=== PATIENT | male | born 1955 | race Caucasian/White ===

== ENCOUNTER 2016-11-03 21:36 | Emergency (ER) | payer OTHER ==
[2016-11-03] MEDS ORDERED: NEOSYNEPHRINE 0.5% NASAL SPRAY/DROPS NS ONE (21:54)
[2016-11-03] MEDS ORDERED: ARZOL Silver Nitrate Applicator TP ONE ×2 (21:54→22:05)
[2016-11-03] MEDS ORDERED: XYLOCAINE 4% TOPICAL SOLUTION 50 ML TOP ONE (21:54)
--- NOTE | 2016-11-03 21:58 | ERPHSYRPT ---
- History of Present Illness Time Seen by Provider: 11/03/16 21:50 Source: patient Physician History: CC: nosebleed Hx: 61 y/o patient of Dr Alfonso with off and on right sided nose bleeding since Thrus. Tries to use tissue to get it stopped. Not on blood thinners. No injury. No problems like this in the past. Now has stopped again. Severity: moderate ENT Location: nose Allergies/Adverse Reactions: No Known Drug Allergies Allergy (Verified 11/03/16 22:22) Home Medications: Amlodipine Besylate 5 mg [Norvasc 5 mg] 5 mg PO DAILY 02/10/16 [History] Aspirin 81 mg PO DAILY 02/10/16 [History] Nitroglycerin 0.4 mg Tablet [Nitrostat 0.4 MG Tablet] 0.4 mg SL UD [History] Hx Tetanus, Diphtheria Vaccination/Date Given: Yes (up to date) Hx Influenza Vaccination/Date Given: No Hx Pneumococcal Vaccination/Date Given: No - Review of Systems Constitutional: No Fever, No Chills Ears, Nose, & Throat: Nose Congestion, Epistaxis Respiratory: No Dyspnea Abdominal/Gastrointestinal: No Vomiting Skin: No Rash Hematologic/Lymphatic: No Blood Clots, No Easy Bleeding, No Gum Bleeding, No Easy Bruising All Other Systems: Reviewed and Negative - Past Medical History Pertinent Past Medical History: Yes Cardiac History: Coronary Artery Disease, Hypertension - Past Surgical History Past Surgical History: Yes Cardiac: Cardiac Catheterization Gastrointestinal: Appendectomy - Social History Smoking Status: Current every day smoker How long have you smoked: 45 Exposure to second hand smoke: Yes Drug Use: none Patient Lives Alone: No - Nursing Vital Signs Nursing Vital Signs: Initial Vital Signs Temperature 97.7 F 11/03/16 21:48 Pulse Rate 98 H 11/03/16 21:48 Respiratory Rate 20 11/03/16 21:48 Blood Pressure 128/74 11/03/16 21:48 O2 Sat by Pulse Oximetry 98 11/03/16 21:48 Pain Scale Pain Intensity 0 - Physical Exam General Appearance: alert Eye Exam: bilateral eye: PERRL, EOMI Throat Exam: normal, pharynx normal Neck Exam: supple Cardiovascular/Respiratory Exam: normal breath sounds, regular rate/rhythm Abdominal Exam: non-tender, soft Neurologic Exam: alert, oriented x 3, cooperative Skin Exam: warm, dry, No rash Comments: left nostril has dryness and some excoriation. Right has some old blood, dry, exposed veins in [place] plexus area without current active bleeding. Procedures - Additional Procedures Progress: 1ml 4% lidocaine and neosynephrine mix atomized in right nostril. Then the k[place]elbach plexus area was cauterized using silver nitrate. No further bleeding. Ordered Tests: Active Orders 24 hr Category Date Time Status CBC W DIFF Stat Lab 11/03/16 22:07 Completed PROTIME WITH INR Stat Lab 11/03/16 22:07 Completed PTT Stat Lab 11/03/16 22:07 Completed Medication Summary Discontinued Medications Generic Name Dose Route Start Last Admin Trade Name Yovani PRN Reason Stop Dose Admin Lidocaine HCl 10 ml 11/03/16 21:54 11/03/16 22:11 Xylocaine 4% Topical Solution 50 Ml TOP 11/03/16 21:55 10 ml STAT ONE Administration Lidocaine HCl Confirm 11/03/16 22:05 Xylocaine 4% Topical Solution 50 Ml Administered 11/03/16 22:06 Dose 10 ml .ROUTE .STK-MED ONE Phenylephrine HCl 15 ml 11/03/16 21:54 11/03/16 22:10 Neosynephrine 0.5% Nasal [place]/Drops NS 11/03/16 21:55 15 ml STAT ONE Administration Phenylephrine HCl Confirm 11/03/16 22:05 Neosynephrine 0.5% Nasal [place]/Drops Administered 11/03/16 22:06 Dose 15 ml .ROUTE .STK-MED ONE Silver Nitrate 1 pkt 11/03/16 21:54 11/03/16 22:11 Arzol Silver Nitrate Applicator TP 11/03/16 21:55 1 pkt STAT ONE Administration Silver Nitrate Confirm 11/03/16 22:05 Arzol Silver Nitrate Applicator Administered 11/03/16 22:06 Dose 1 pkt TP .STK-MED ONE Lab/Rad Data: Laboratory Result Diagrams 11/03/16 22:07 Laboratory Results 11/03/16 11/03/16 Range/Units 22:07 22:07 WBC 6.0 (4.0-10.5) K/mm3 RBC 3.71 L (4.1-5.6) M/mm3 Hgb 12.4 L (12.5-18.0) gm/dl Hct 37.2 L (42-50) % MCV 100.3 H (78-100) fl MCH 33.4 H (26-32) pg MCHC 33.3 (32-36) g/dl RDW 11.7 (11.5-14.0) % Plt Count 134 L (150-450) K/mm3 MPV 9.6 H (6-9.5) fl Gran % 51.0 (36.0-66.0) % Lymphocytes % 28.6 (24.0-44.0) % Monocytes % 17.9 H (0.0-12.0) % Eosinophils % 2.2 (0.00-5.0) % Basophils % 0.3 (0.0-0.4) % Basophils # 0.02 (0-0.4) INR 0.91 (0.8-3.0) APTT 31.2 (24.1-36.1) SECONDS - Progress Progress Note: 11/03/16 22:39 No further bleeding. Epistaxis instr given. Counseled pt/family regarding: diagnosis, need for follow-up - Departure Time of Disposition: 22:39 Departure Disposition: Home Clinical Impression: Anterior epistaxis Condition: Stable Critical Care Time: No Referrals: ADELIA ALFONSO [Primary Care Provider] - Instructions: Nosebleed Additional Instructions: Hold pressure for 20 minutes for any further bleeding. Return to ER if needed. Rx polysporin ointment to rub in nose at bedtime starting tomorrow. Follow up with Dr Alfosno. Prescriptions: Bacitracin/Polymyxin B Sulfate [Polysporin Ointment] 28.3 gm TP QHS #1 oint...g.
[2016-11-03] MEDS ORDERED: XYLOCAINE 4% TOPICAL SOLUTION 50 ML ONE (22:05)
[2016-11-03] MEDS ORDERED: NEOSYNEPHRINE 0.5% NASAL SPRAY/DROPS ONE (22:05)
[2016-11-03 22:10] LABS: BASOPHIL % 0.3 % (0.0-0.4); Eosinophil % 2.2 % (0.00-5.0); Lymphocytes % 28.6 % (24.0-44.0); Mean Cell Volume 100.3 fl (78-100); Mean Corpuscular Hemoglobin 33.4 pg (26-32); Mean Platelet Volume 9.6 fl (6-9.5); Monocytes % 17.9 % (0.0-12.0); Platelet Count 134 K/mm3 (150-450); Red Blood Count 3.71 M/mm3 (4.1-5.6); Red Cell Distribution Width 11.7 % (11.5-14.0)
[2016-11-03 22:26] LABS: INR 0.91 (0.8-3.0); PROTIME 10.1 SECONDS (8.83-12.87)
[2016-11-03 22:28] LABS: PTT 31.2 SECONDS (24.1-36.1)
[2016-11-03 22:32] VITALS: BP 120/69; PULSE 88; O2SAT 97
== END 2016-11-03 22:51 | disposition home or self-care (01) ==
LOC: ED 21:36
DX: R04.0 Epistaxis (principal)
CPT/HCPCS: 36415; 85025; 85610; 85730; 99284; A9270-GY

== ENCOUNTER 2018-04-25 20:05 | Emergency (ER) | payer OTHER ==
--- NOTE | 2018-04-25 20:51 | ERPHSYRPT ---
- History of Present Illness Source: patient Exam Limitations: no limitations Patient Subjective Stated Complaint: pt is alert and oriented. pt is ambulatory with a steady gait. pt comes in via police for medical clearance after blowing .235 on a brethalyzer and a blood stick of 351. pt heart rate is 90bpm Sinus rhythm. 97% on RA. 134/84 bp. 18 resp rate. pt is cooperative. Triage Nursing Assessment: see above Physician History: Pt is a 62 y/o male that presented to the ER with police escort. Pt has elevated blood alcohol level and requiring medical clearance for care home. Pt denies complains, and stated, he had just three beers today. He did have four beers yesterday. Pt denies liquor use. Timing/Duration: today Severity: mild Allergies/Adverse Reactions: codeine Allergy (Verified 04/25/18 20:24) Home Medications: Amlodipine Besylate 5 mg [Norvasc 5 mg] 5 mg PO DAILY 02/10/16 [History] Aspirin 81 mg PO DAILY 02/10/16 [History] Hx Tetanus, Diphtheria Vaccination/Date Given: Yes (up to date) Hx Influenza Vaccination/Date Given: No Hx Pneumococcal Vaccination/Date Given: No Immunizations Up to Date: Yes - Review of Systems Constitutional: No Fever, No Chills Eyes: No Symptoms Ears, Nose, & Throat: No Symptoms Respiratory: No Cough, No Dyspnea Cardiac: No Chest Pain, No Edema, No Syncope Abdominal/Gastrointestinal: No Abdominal Pain, No Nausea, No Vomiting, No Diarrhea Genitourinary Symptoms: No Dysuria Musculoskeletal: No Back Pain, No Neck Pain Skin: No Rash Neurological: No Dizziness, No Focal Weakness, No Sensory Changes Psychological: No Symptoms Endocrine: No Symptoms All Other Systems: Reviewed and Negative - Past Medical History Pertinent Past Medical History: Yes Neurological History: Stroke Cardiac History: Coronary Artery Disease, Hypertension Respiratory History: COPD - Past Surgical History Past Surgical History: Yes Cardiac: Cardiac Catheterization Gastrointestinal: Appendectomy - Social History Smoking Status: Current every day smoker How long have you smoked: 50 years Exposure to second hand smoke: Yes Drug Use: none Patient Lives Alone: No - Nursing Vital Signs Nursing Vital Signs: Initial Vital Signs Temperature 97.4 F 04/25/18 20:17 Pulse Rate 96 H 04/25/18 20:17 Respiratory Rate 18 04/25/18 20:17 Blood Pressure 134/84 04/25/18 20:17 O2 Sat by Pulse Oximetry 98 04/25/18 20:17 Pain Scale Pain Intensity 0 - Physical Exam General Appearance: no apparent distress, alert Eye Exam: PERRL/EOMI, eyes nml inspection Ears, Nose, Throat Exam: normal ENT inspection, TMs normal, pharynx normal, moist mucous membranes Neck Exam: normal inspection, non-tender, supple, full range of motion Respiratory Exam: normal breath sounds, lungs clear, No respiratory distress Cardiovascular Exam: regular rate/rhythm, normal heart sounds, normal peripheral pulses Gastrointestinal/Abdomen Exam: soft, normal bowel sounds, No tenderness, No mass Back Exam: normal inspection, normal range of motion, No CVA tenderness, No vertebral tenderness Extremity Exam: normal inspection, normal range of motion, pelvis stable Neurologic Exam: alert, oriented x 3, cooperative, normal mood/affect, sensation nml, No motor deficits Skin Exam: normal color, warm, dry, No rash Lymphatic Exam: No adenopathy SpO2: 98 - Course Nursing assessment & vital signs reviewed: Yes Ordered Tests: Active Orders 24 hr Category Date Time Status TROPONIN Q3H Lab 04/25/18 19:45 Completed TROPONIN Q3H Lab 04/25/18 23:45 Ordered UA W/RFX UR CULTURE Stat Lab 04/25/18 20:28 Completed Urine Triage Profile Stat Lab 04/25/18 21:25 Completed Lab/Rad Data: Laboratory Results 04/25/18 04/25/18 04/25/18 Range/Units 21:25 20:28 19:45 Troponin I < 0.012 (0.000-0.034) ng/mL Urine Color YELLOW (YELLOW) Urine Appearance CLEAR (CLEAR) Urine pH 6.0 (5-6) Ur Specific [place] 1.010 (1.005-1.025) Urine Protein NEGATIVE (Negative) Urine Ketones NEGATIVE (NEGATIVE) Urine Blood NEGATIVE (0-5) Bin/ul Urine Nitrite NEGATIVE (NEGATIVE) Urine Bilirubin NEGATIVE (NEGATIVE) Urine Urobilinogen NEGATIVE (0-1) mg/dL Ur Leukocyte Esterase NEGATIVE (NEGATIVE) Urine WBC (Auto) NONE (0-5) /HPF Urine RBC (Auto) NONE (0-2) /HPF U Hyaline Cast (Auto) 3-5 (0-2) /LPF U Epithel Cells (Auto) NONE (FEW) /HPF Urine Bacteria (Auto) NONE (NEGATIVE) /HPF Urine Mucus (Auto) SLIGHT (NEGATIVE) /HPF Urine Culture Reflexed NO (NO) Urine Glucose NEGATIVE (NEGATIVE) mg/dL Urine Opiates Level NEGATIVE (NEGATIVE) Ur Methadone NEGATIVE (NEGATIVE) Urine Barbiturates NEGATIVE (NEGATIVE) Ur Phencyclidine (PCP) NEGATIVE (NEGATIVE) Urine Amphetamine NEGATIVE (NEGATIVE) U Benzodiazepine Level NEGATIVE (NEGATIVE) Urine Cocaine NEGATIVE (NEGATIVE) Urine Marijuana (THC) NEGATIVE (NEGATIVE) - Progress Progress: unchanged Progress Note: 04/25/18 20:50 Pt with elevated blood alcohol level. Troponin and UDS were ordered. Troponins and UDS were negative. Pt is cleared medically for care home. 04/25/18 22:00 Will see patient in: other (Pt is cleared for care home) - Departure Time of Disposition: 22:01 Departure Disposition: [facility] Clinical Impression: Alcohol intoxication Condition: Stable Critical Care Time: No Referrals: DOCTOR,NO FAMILY [NON-STAFF PHY W/O PRIVILEGES] -
[2018-04-25 21:18] LABS: Appearance CLEAR (CLEAR); Bilirubin NEGATIVE (NEGATIVE); Blood NEGATIVE Ery/ul (0-5); Glucose NEGATIVE (NEGATIVE); Ketones NEGATIVE (NEGATIVE); Leukocyte Esterase NEGATIVE (NEGATIVE); Mucus SLIGHT /HPF (NEGATIVE); Nitrite NEGATIVE (NEGATIVE); Protein,Urine Dip NEGATIVE (Negative); Urobilinogen NEGATIVE mg/dL (0-1)
[2018-04-25 21:46] LABS: Amphetamine,Urine NEGATIVE (NEGATIVE); Barbiturate,Urine NEGATIVE (NEGATIVE); Benzodiazepine,Urine NEGATIVE (NEGATIVE); Cocaine,Urine NEGATIVE (NEGATIVE); Methadone,Urine NEGATIVE (NEGATIVE); Opiate,Urine NEGATIVE (NEGATIVE); PCP,Urine NEGATIVE (NEGATIVE); THC,Urine NEGATIVE (NEGATIVE)
[2018-04-25 22:10] VITALS: BP 104/85; PULSE 104; O2SAT 97
== END 2018-04-25 22:10 | disposition home or self-care (01) ==
LOC: ED 20:05
DX: F10.129 Alcohol abuse with intoxication, unspecified (principal); I25.10 Atherosclerotic heart disease of native coronary artery without angina pectoris; I10 Essential (primary) hypertension; J44.9 Chronic obstructive pulmonary disease, unspecified
CPT/HCPCS: 36415; 80307; 81001; 84484; 99283; G0480

== ENCOUNTER 2018-07-01 11:47 | Observation (INO) | payer OTHER ==
[2018-07-01] MEDS ORDERED: Zofran 4 MG/2 ML VIAL IV ONE (11:53)
[2018-07-01] MEDS ORDERED: MORPHINE SULFATE 2 MG INJ IV ONE (11:53)
[2018-07-01] MEDS ORDERED: Zofran 4 MG/2 ML VIAL ONE (11:58)
[2018-07-01] MEDS ORDERED: MORPHINE SULFATE 2 MG INJ ONE (11:59)
--- NOTE | 2018-07-01 12:00 | ERPHSYRPT ---
- History of Present Illness Time Seen by Provider: 07/01/18 11:57 Source: patient Physician History: mild to mod off and on anterior chest pain tight for one day, no injury, +NV, no fever, +headache, hx cva and left residual weakness Aspirin Treatment Today: 81 mg x 4 Allergies/Adverse Reactions: codeine Adverse Reaction (Verified 07/01/18 12:15) Home Medications: Amlodipine Besylate 5 mg [Norvasc 5 mg] 5 mg PO DAILY 02/10/16 [History] Aspirin 81 mg PO DAILY 02/10/16 [History] Naproxen 500 mg PO DAILY 07/01/18 [History] Hx Tetanus, Diphtheria Vaccination/Date Given: Yes (up to date) Hx Influenza Vaccination/Date Given: No Hx Pneumococcal Vaccination/Date Given: No - Review of Systems Constitutional: No Fever Eyes: No Vision Changes Ears, Nose, & Throat: No Mouth Pain Respiratory: No Dyspnea Cardiac: Chest Pain Abdominal/Gastrointestinal: Nausea, Vomiting Musculoskeletal: No Back Pain Skin: No Rash Neurological: Headache, No Dizziness - Past Medical History Pertinent Past Medical History: Yes Neurological History: Stroke Cardiac History: Coronary Artery Disease, Hypertension Respiratory History: COPD - Past Surgical History Past Surgical History: Yes Cardiac: Cardiac Catheterization Gastrointestinal: Appendectomy - Social History Smoking Status: Current every day smoker How long have you smoked: 50 years Exposure to second hand smoke: Yes Drug Use: none Patient Lives Alone: No - Nursing Vital Signs Nursing Vital Signs: Initial Vital Signs Temperature 98.6 F 07/01/18 12:05 Pulse Rate 107 H 07/01/18 12:05 Respiratory Rate 16 07/01/18 12:05 Blood Pressure 150/89 07/01/18 12:05 O2 Sat by Pulse Oximetry 100 07/01/18 12:05 Pain Scale Pain Intensity 4 - Physical Exam General Appearance: no apparent distress Eye Exam: PERRL/EOMI, eyes nml inspection Ears, Nose, Throat Exam: moist mucous membranes Neck Exam: normal inspection Respiratory Exam: normal breath sounds Cardiovascular Exam: regular rate/rhythm Gastrointestinal/Abdomen Exam: soft, No tenderness Back Exam: normal range of motion Extremity Exam: normal inspection Neurologic Exam: alert, oriented x 3, cooperative Skin Exam: normal color, warm, dry - Course Nursing assessment & vital signs reviewed: Yes EKG Interpreted by Me: Sinus Rhythm, Other (no stemi) - Radiology Exams Chest X-ray Interpretation: Discussed w/ radiologist, Negative - CT Exams Head CT Interpretation: Negative, Discussed w/radiologist Chest CT Interpretation: Negative, Discussed w/radiologist Abdomen/Pelvis CT Interpretation: Negative, Discussed w/radiologist Ordered Tests: Active Orders 24 hr Category Date Time Status [employer] Consultant STAT Care 07/01/18 11:53 Active EKG-ER Only STAT Care 07/01/18 11:53 Active IV Insertion STAT Care 07/01/18 11:53 Active ABDOMEN AND PELVIS W/0 CONTRAS [CT] Stat Exams 07/01/18 11:55 Completed CHEST 1 VIEW (PORTABLE) Stat Exams 07/01/18 11:53 Completed CHEST WITH CONTRAST [CT] Stat Exams 07/01/18 12:33 Completed HEAD WITHOUT CONTRAST [CT] Stat Exams 07/01/18 11:56 Completed Alcohol [ETHYL ALCOHOL] Stat Lab 07/01/18 11:45 Completed CBC W DIFF Stat Lab 07/01/18 11:45 Completed CK-Creatinine Phosphokinase Stat Lab 07/01/18 11:45 Completed CMP Stat Lab 07/01/18 11:45 Completed D-DIMER QUANTITATION Stat Lab 07/01/18 11:45 Completed LIPASE Stat Lab 07/01/18 11:45 Completed Lactic Acid Stat Lab 07/01/18 12:05 Completed Lactic Acid Stat Lab 07/01/18 14:12 Ordered PROTIME WITH INR Stat Lab 07/01/18 11:45 Completed SED RATE [Erythrocyte Sedimentation Rate] Stat Lab 07/01/18 11:45 Completed TROPONIN Q3H Lab 07/01/18 12:00 Completed TROPONIN Q3H Lab 07/01/18 15:00 Ordered TROPONIN Q3H Lab 07/01/18 18:00 Ordered TROPONIN Q3H Lab 07/01/18 21:00 Ordered TROPONIN Q3H Lab 07/02/18 00:00 Ordered Urine Triage Profile Stat Lab 07/01/18 13:30 Completed Transfer Order Routine Transfer 07/01/18 Ordered Medication Summary Discontinued Medications Generic Name Dose Route Start Last Admin Trade Name Freq PRN Reason Stop Dose Admin Sodium Chloride 1,000 mls @ 999 mls/hr 07/01/18 12:17 07/01/18 13:38 Sodium Chloride 0.9% 1000 Ml IV 07/01/18 13:17 Infused .Q1H1M STA Infusion Sodium Chloride Confirm 07/01/18 12:22 Sodium Chloride 0.9% 1000 Ml Administered 07/01/18 12:23 Dose 1,000 mls @ ud .ROUTE .STK-MED ONE Morphine Sulfate 2 mg 07/01/18 11:53 07/01/18 12:02 Morphine Sulfate 2 Mg Inj IV 07/01/18 11:54 2 mg STAT ONE Administration Morphine Sulfate Confirm 07/01/18 11:59 Morphine Sulfate 2 Mg Inj Administered 07/01/18 12:00 Dose 2 mg .ROUTE .STK-MED ONE Ondansetron HCl 4 mg 07/01/18 11:53 07/01/18 12:02 Zofran 4 Mg/2 Ml Vial IV 07/01/18 11:54 4 mg STAT ONE Administration Ondansetron HCl Confirm 07/01/18 11:58 Zofran 4 Mg/2 Ml Vial Administered 07/01/18 11:59 Dose 4 mg .ROUTE .STK-MED ONE Lab/Rad Data: Laboratory Result Diagrams 07/01/18 11:45 07/01/18 11:45 Laboratory Results 07/01/18 07/01/18 07/01/18 Range/Units 13:30 12:05 12:00 WBC (4.0-10.5) K/mm3 RBC (4.1-5.6) M/mm3 Hgb (12.5-18.0) gm/dl Hct (42-50) % MCV (78-100) fl MCH (26-32) pg MCHC (32-36) g/dl RDW (11.5-14.0) % Plt Count (150-450) K/mm3 MPV (6-9.5) fl Gran % (36.0-66.0) % Eos # (Auto) (0-0.5) Absolute Lymphs (auto) (1.0-4.6) Absolute Monos (auto) (0.0-1.3) Lymphocytes % (24.0-44.0) % Monocytes % (0.0-12.0) % Eosinophils % (0.00-5.0) % Basophils % (0.0-0.4) % Absolute Granulocytes (1.4-6.9) Basophils # (0-0.4) ESR (0-15) mm/hr PT (8.83-12.87) SECONDS INR (0.8-3.0) D-Dimer (215-500) ng/mL Sodium (137-145) mmol/L Potassium (3.5-5.1) mmol/L Chloride (98-107) mmol/L Carbon Dioxide (22-30) mmol/L Anion Gap (5-15) MEQ/L BUN (9-20) mg/dL Creatinine (0.66-1.25) mg/dL Estimated GFR ML/MIN Glucose (74-106) mg/dL Lactic Acid 3.0 H (0.4-2.0) Calcium (8.4-10.2) mg/dL Total Bilirubin (0.2-1.3) mg/dL AST (17-59) U/L ALT (0-50) U/L Alkaline Phosphatase (38-126) U/L Creatine Kinase (55-170) U/L Troponin I < 0.012 (0.000-0.034) ng/mL Serum Total Protein (6.3-8.2) g/dL Albumin (3.5-5.0) g/dL Lipase (23-300) U/L Urine Opiates Level POSITIVE (NEGATIVE) Ur Methadone NEGATIVE (NEGATIVE) Urine Barbiturates NEGATIVE (NEGATIVE) Ur Phencyclidine (PCP) NEGATIVE (NEGATIVE) Urine Amphetamine NEGATIVE (NEGATIVE) U Benzodiazepine Level NEGATIVE (NEGATIVE) Urine Cocaine NEGATIVE (NEGATIVE) Urine Marijuana (THC) NEGATIVE (NEGATIVE) Ethyl Alcohol (0-10) mg/dL 07/01/18 07/01/18 07/01/18 Range/Units 11:45 11:45 11:45 WBC (4.0-10.5) K/mm3 RBC (4.1-5.6) M/mm3 Hgb (12.5-18.0) gm/dl Hct (42-50) % MCV (78-100) fl MCH (26-32) pg MCHC (32-36) g/dl RDW (11.5-14.0) % Plt Count (150-450) K/mm3 MPV (6-9.5) fl Gran % (36.0-66.0) % Eos # (Auto) (0-0.5) Absolute Lymphs (auto) (1.0-4.6) Absolute Monos (auto) (0.0-1.3) Lymphocytes % (24.0-44.0) % Monocytes % (0.0-12.0) % Eosinophils % (0.00-5.0) % Basophils % (0.0-0.4) % Absolute Granulocytes (1.4-6.9) Basophils # (0-0.4) ESR 3 (0-15) mm/hr PT (8.83-12.87) SECONDS INR (0.8-3.0) D-Dimer (215-500) ng/mL Sodium (137-145) mmol/L Potassium (3.5-5.1) mmol/L Chloride (98-107) mmol/L Carbon Dioxide (22-30) mmol/L Anion Gap (5-15) MEQ/L BUN (9-20) mg/dL Creatinine (0.66-1.25) mg/dL Estimated GFR ML/MIN Glucose (74-106) mg/dL Lactic Acid (0.4-2.0) Calcium (8.4-10.2) mg/dL Total Bilirubin (0.2-1.3) mg/dL AST (17-59) U/L ALT (0-50) U/L Alkaline Phosphatase (38-126) U/L Creatine Kinase (55-170) U/L Troponin I (0.000-0.034) ng/mL Serum Total Protein (6.3-8.2) g/dL Albumin (3.5-5.0) g/dL Lipase 47 (23-300) U/L Urine Opiates Level (NEGATIVE) Ur Methadone (NEGATIVE) Urine Barbiturates (NEGATIVE) Ur Phencyclidine (PCP) (NEGATIVE) Urine Amphetamine (NEGATIVE) U Benzodiazepine Level (NEGATIVE) Urine Cocaine (NEGATIVE) Urine Marijuana (THC) (NEGATIVE) Ethyl Alcohol < 10 (0-10) mg/dL 07/01/18 07/01/18 07/01/18 Range/Units 11:45 11:45 11:45 WBC 8.9 (4.0-10.5) K/mm3 RBC 4.90 (4.1-5.6) M/mm3 Hgb 16.5 (12.5-18.0) gm/dl Hct 48.1 (42-50) % MCV 98.2 (78-100) fl MCH 33.7 H (26-32) pg MCHC 34.3 (32-36) g/dl RDW 13.3 (11.5-14.0) % Plt Count 222 (150-450) K/mm3 MPV 8.3 (6-9.5) fl Gran % 83.0 H (36.0-66.0) % Eos # (Auto) 0.01 (0-0.5) Absolute Lymphs (auto) 0.70 L (1.0-4.6) Absolute Monos (auto) 0.75 (0.0-1.3) Lymphocytes % 7.9 L (24.0-44.0) % Monocytes % 8.4 (0.0-12.0) % Eosinophils % 0.1 (0.00-5.0) % Basophils % 0.6 (0.0-0.4) % Absolute Granulocytes 7.38 H (1.4-6.9) Basophils # 0.05 (0-0.4) ESR (0-15) mm/hr PT 10.8 (8.83-12.87) SECONDS INR 0.93 (0.8-3.0) D-Dimer 624 H* (215-500) ng/mL Sodium 138 (137-145) mmol/L Potassium 4.5 (3.5-5.1) mmol/L Chloride 100 (98-107) mmol/L Carbon Dioxide 25 (22-30) mmol/L Anion Gap 17.2 H (5-15) MEQ/L BUN 7 L (9-20) mg/dL Creatinine 0.68 (0.66-1.25) mg/dL Estimated GFR > 60.0 ML/MIN Glucose 101 (74-106) mg/dL Lactic Acid (0.4-2.0) Calcium 9.9 (8.4-10.2) mg/dL Total Bilirubin 1.10 (0.2-1.3) mg/dL AST 62 H (17-59) U/L ALT 26 (0-50) U/L Alkaline Phosphatase 114 (38-126) U/L Creatine Kinase 165 (55-170) U/L Troponin I (0.000-0.034) ng/mL Serum Total Protein 8.8 H (6.3-8.2) g/dL Albumin 4.7 (3.5-5.0) g/dL Lipase (23-300) U/L Urine Opiates Level (NEGATIVE) Ur Methadone (NEGATIVE) Urine Barbiturates (NEGATIVE) Ur Phencyclidine (PCP) (NEGATIVE) Urine Amphetamine (NEGATIVE) U Benzodiazepine Level (NEGATIVE) Urine Cocaine (NEGATIVE) Urine Marijuana (THC) (NEGATIVE) Ethyl Alcohol (0-10) mg/dL - Progress Progress: improved Air Movement: good Progress Note: 07/01/18 14:42 admit d/w Dr Alfonso Discussed with : Kaden Will see patient in: hospital (observation) Counseled pt/family regarding: lab results, diagnosis, rad results - Departure Departure Disposition: Observation Clinical Impression: Chest pain Qualifiers: Chest pain type: precordial pain Qualified Code(s): R07.2 - Precordial pain Condition: Stable Critical Care Time: No Referrals: ADELIA ALFONSO [Primary Care Provider] -
[2018-07-01] MEDS ORDERED: Sodium Chloride 0.9% 1000 ML 1,000 ML IV STA (12:17)
[2018-07-01 12:22] LABS: INR 0.93 (0.8-3.0); PROTIME 10.8 SECONDS (8.83-12.87)
[2018-07-01] MEDS ORDERED: Sodium Chloride 0.9% 1000 ML 1,000 ML ONE (12:22)
[2018-07-01 12:23] LABS: BASOPHIL % 0.6 % (0.0-0.4); Basophil (Absolute #) 0.05 (0-0.4); Eosinophil % 0.1 % (0.00-5.0); Eosinophil (Absolute #) 0.01 (0-0.5); Granulocyte Absolute (ANC) 7.38 (1.4-6.9); Hematocrit 48.1 % (42-50); Hemoglobin 16.5 gm/dl (12.5-18.0); Lymphocytes % 7.9 % (24.0-44.0); Mean Cell Volume 98.2 fl (78-100); Mean Corpuscular Hemoglobin 33.7 pg (26-32); Mean Corpuscular Hgb Concent. 34.3 g/dl (32-36); Mean Platelet Volume 8.3 fl (6-9.5); Monocyte (Absolute #) 0.75 (0.0-1.3); Monocytes % 8.4 % (0.0-12.0); Platelet Count 222 K/mm3 (150-450); Red Cell Distribution Width 13.3 % (11.5-14.0); White Blood Count 8.9 K/mm3 (4.0-10.5)
--- NOTE | 2018-07-01 12:25 | XRAY ---
Indication: Chest pain. Comparison: February 17, 2016. Portable chest remains hyperinflated and clear. Heart is not enlarged. Bony thorax intact with old right 9/10 rib fractures. No new/acute findings.
[2018-07-01 12:29] LABS: ALBUMIN 4.7 g/dL (3.5-5.0); ALKALINE PHOSPHATASE 114 U/L (38-126); ANION GAP 17.2 MEQ/L (5-15); BLOOD UREA NITROGEN 7 mg/dL (9-20); CHLORIDE 100 mmol/L (98-107); CK-Creatinine Phosphokinase 165 U/L (55-170); Calcium 9.9 mg/dL (8.4-10.2); Carbon Dioxide 25 mmol/L (22-30); Creatinine 1 0.68 mg/dL (0.66-1.25); Glucose 101 mg/dL (74-106); Potassium 4.5 mmol/L (3.5-5.1); SGOT/AST 62 U/L (17-59); SGPT/ALT 26 U/L (0-50); SODIUM 138 mmol/L (137-145); Total Protein 8.8 g/dL (6.3-8.2)
--- NOTE | 2018-07-01 13:00 | XRAY ---
Indication: Headache, nausea, and vomiting. Multiple contiguous axial images obtained through the head without contrast. Comparison: None Age-appropriate global atrophy. No acute intracranial hemorrhage, abnormal extra-axial fluid collection, or mass effect. Fourth ventricle is midline without hydrocephalus. Shook-white matter differentiation preserved. Bony calvarium intact. Partially visualized opacification of the left maxillary sinus. Mastoid air cells are clear. Impression: 1. No acute intracranial abnormalities. 2. Partially visualized left maxillary sinus disease. CT DI 70.21
--- NOTE | 2018-07-01 13:02 | XRAY ---
Indication: Nausea and vomiting. Multiple contiguous axial images obtained through the abdomen and pelvis without contrast as ordered. Comparison: None Lung bases demonstrate minimal bibasilar dependent atelectasis. No infiltrate or effusion. Heart is not enlarged. Noncontrasted stomach and bowel loops appear nonobstructed. Patient reports appendectomy. No free fluid/air. Calcified splenic granulomas. Remaining liver, gallbladder, pancreas, spleen, adrenal glands, kidneys, ureters, and bladder appear unremarkable for noncontrast exam. Moderate aortoiliac calcifications without AAA. 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 No ventral or inguinal hernias. Impression: Calcified splenic granulomas and right rib fractures. Remaining CT abdomen/pelvis without contrast exam is negative. CT DI 10.18
--- NOTE | 2018-07-01 13:44 | XRAY ---
Indication: Chest pain. Elevated d-dimer. Multiple contiguous axial images obtained through the chest using 80 cc Isovue 370 contrast and PE protocol. Comparison: None There is good opacification of the pulmonary arteries to include the lobar and segmental branches. No filling defect or pulmonary embolus. Heart is not enlarged. Anatomic variant for right-sided aortic arch without aneurysm/dissection. Left perihilar calcified nodes. No pathologic mediastinal/hilar lymphadenopathy. Small hiatal hernia. Examination of the lung parenchyma demonstrates minimal bilateral dependent atelectasis and minimal pulmonary emphysema in both upper lobes.. Superior segment of the left lower lobe and lesser degree both lung apices demonstrates minimal subpleural cystic changes. No suspicious pulmonary mass, infiltrate, or effusion. Bony thorax demonstrates healing right 9 rib fracture and old nonunited right [address] abdomen reported separately. Impression: 1. Negative pulmonary embolus. No acute cardiopulmonary abnormalities. 2. Incidental findings including pulmonary emphysema, scattered subpleural cystic changes, small hiatal hernia, hilar calcified nodes, and right-sided aortic arch. CT DI 10.49
[2018-07-01 13:45] LABS: Amphetamine,Urine NEGATIVE (NEGATIVE); Barbiturate,Urine NEGATIVE (NEGATIVE); Benzodiazepine,Urine NEGATIVE (NEGATIVE); Cocaine,Urine NEGATIVE (NEGATIVE); Methadone,Urine NEGATIVE (NEGATIVE); Opiate,Urine POSITIVE (NEGATIVE); PCP,Urine NEGATIVE (NEGATIVE); THC,Urine NEGATIVE (NEGATIVE)
[2018-07-01] MEDS ORDERED: BABY ASPIRIN 81 MG CHEW PO ONE (14:44)
[2018-07-01] MEDS ORDERED: BABY ASPIRIN 81 MG CHEW ONE (15:09)
[2018-07-01] MEDS ORDERED: MILK OF MAGNESIA 30 ML PO PRN (15:41)
[2018-07-01] MEDS ORDERED: Senokot-S Tablet PO PRN (15:41)
[2018-07-01] MEDS ORDERED: Zofran 4 MG/2 ML VIAL IV PRN (15:41)
[2018-07-01] MEDS ORDERED: MAALOX ES 30 ML UNIT DOSE PO PRN (15:41)
[2018-07-01] MEDS ORDERED: TYLENOL 325 MG PO PRN (15:41)
[2018-07-01] MEDS ORDERED: Nitrostat 0.4 MG Tablet SL PRN (17:04)
[2018-07-01] MEDS: Naprosyn 500 MG PO SCH (17:41)
[2018-07-01] MEDS: NORVASC 5 MG PO SCH (17:52)
[2018-07-01] MEDS ORDERED: NORVASC 5 MG PO SCH (18:00)
[2018-07-02] MEDS ORDERED: Sodium Chloride 0.9% 10 ML FLUSH Syringe IV SCH (06:00)
[2018-07-02 06:09] LABS: Risk Ratio 2.6
--- NOTE | 2018-07-02 08:41 | PCM.HP.ADD ---
Addendum to History & Physical - History & Physical Addendum Addendum to History & Physical: This certifies that the History & Physical in the electronic chart reflects the current health status of the patient. If there are changes in the H&P these changes/exceptions are listed as follows.
--- NOTE | 2018-07-02 08:48 | PCM.DS ---
Discharge Summary Date of Admission: 07/01/18 15:20 Admitting Physician: ADELIA ESPARZA Primary Care Provider: ADELIA ESPARZA Allergies Allergies codeine Adverse Reaction (Verified 07/01/18 12:15) Hospital Summary - Hospital Course Hospital Course: Pt is 63 yo male pt of mine from [facility] with HTN, smoker, who was seen in office yesterday c/o chest pain and nausea. He has episodes of chest pain with activity which lead to MAT[place] and nausea. He has had cardiology workup but it's been over a year ago. He was sent to ER from my office where d-dimer was elevated but CT of chest was negative for PE. His troponin was negative. He was admitted to rule out [place]. His CT head was nonacute; CXR with old 11/04 rib rx, nonacute. CT abd/pelvis non acute. Overnight he has done well, has been tolerating liquids and ate some eggs this morning. Still c/o some nausea. CP is better. Will be discharged to home today. Will have outpatient lexiscan and echo. Will f/u with Dr. Caceres outpatient. F/u with me in 1 week. Home on zofran prn. - Vitals & Intake/Output Vital Signs: Vital Signs Temperature 98 F 07/02/18 07:31 Pulse Rate 97 H 07/02/18 07:31 Respiratory Rate 20 07/02/18 07:31 Blood Pressure 132/75 07/02/18 07:31 O2 Sat by Pulse Oximetry 97 07/02/18 07:31 Intake & Output: Intake & Output 06/29/18 06/30/18 07/01/18 07/02/18 11:59 11:59 11:59 11:59 Intake Total 360 Output Total 1720 Balance -1360 Weight 56.9 kg - Lab Result Diagrams: 07/01/18 11:45 07/01/18 11:45 Lab Results-Last 24 Hrs: Lab Results-Last 24 Hours 07/01/18 07/01/18 07/01/18 Range/Units 11:45 11:45 11:45 WBC 8.9 (4.0-10.5) K/mm3 RBC 4.90 (4.1-5.6) M/mm3 Hgb 16.5 (12.5-18.0) gm/dl Hct 48.1 (42-50) % MCV 98.2 (78-100) fl MCH 33.7 H (26-32) pg MCHC 34.3 (32-36) g/dl RDW 13.3 (11.5-14.0) % Plt Count 222 (150-450) K/mm3 MPV 8.3 (6-9.5) fl Gran % 83.0 H (36.0-66.0) % Eos # (Auto) 0.01 (0-0.5) Absolute Lymphs (auto) 0.70 L (1.0-4.6) Absolute Monos (auto) 0.75 (0.0-1.3) Lymphocytes % 7.9 L (24.0-44.0) % Monocytes % 8.4 (0.0-12.0) % Eosinophils % 0.1 (0.00-5.0) % Basophils % 0.6 (0.0-0.4) % Absolute Granulocytes 7.38 H (1.4-6.9) Basophils # 0.05 (0-0.4) ESR (0-15) mm/hr PT 10.8 (8.83-12.87) SECONDS INR 0.93 (0.8-3.0) D-Dimer 624 H* (215-500) ng/mL Sodium 138 (137-145) mmol/L Potassium 4.5 (3.5-5.1) mmol/L Chloride 100 (98-107) mmol/L Carbon Dioxide 25 (22-30) mmol/L Anion Gap 17.2 H (5-15) MEQ/L BUN 7 L (9-20) mg/dL Creatinine 0.68 (0.66-1.25) mg/dL Estimated GFR > 60.0 ML/MIN Glucose 101 (74-106) mg/dL Lactic Acid (0.4-2.0) Calcium 9.9 (8.4-10.2) mg/dL Total Bilirubin 1.10 (0.2-1.3) mg/dL AST 62 H (17-59) U/L ALT 26 (0-50) U/L Alkaline Phosphatase 114 (38-126) U/L Creatine Kinase 165 (55-170) U/L Troponin I (0.000-0.034) ng/mL Serum Total Protein 8.8 H (6.3-8.2) g/dL Albumin 4.7 (3.5-5.0) g/dL Triglycerides (30-150) mg/dL Cholesterol (50-200) mg/dL LDL Cholesterol (30-100) mg/dL HDL Cholesterol (40-60) mg/dL Heart Disease Risk Ratio Lipase (23-300) U/L Urine Opiates Level (NEGATIVE) Ur Methadone (NEGATIVE) Urine Barbiturates (NEGATIVE) Ur Phencyclidine (PCP) (NEGATIVE) Urine Amphetamine (NEGATIVE) U Benzodiazepine Level (NEGATIVE) Urine Cocaine (NEGATIVE) Urine Marijuana (THC) (NEGATIVE) Ethyl Alcohol (0-10) mg/dL 07/01/18 07/01/18 07/01/18 Range/Units 11:45 11:45 11:45 WBC (4.0-10.5) K/mm3 RBC (4.1-5.6) M/mm3 Hgb (12.5-18.0) gm/dl Hct (42-50) % MCV (78-100) fl MCH (26-32) pg MCHC (32-36) g/dl RDW (11.5-14.0) % Plt Count (150-450) K/mm3 MPV (6-9.5) fl Gran % (36.0-66.0) % Eos # (Auto) (0-0.5) Absolute Lymphs (auto) (1.0-4.6) Absolute Monos (auto) (0.0-1.3) Lymphocytes % (24.0-44.0) % Monocytes % (0.0-12.0) % Eosinophils % (0.00-5.0) % Basophils % (0.0-0.4) % Absolute Granulocytes (1.4-6.9) Basophils # (0-0.4) ESR 3 (0-15) mm/hr PT (8.83-12.87) SECONDS INR (0.8-3.0) D-Dimer (215-500) ng/mL Sodium (137-145) mmol/L Potassium (3.5-5.1) mmol/L Chloride (98-107) mmol/L Carbon Dioxide (22-30) mmol/L Anion Gap (5-15) MEQ/L BUN (9-20) mg/dL Creatinine (0.66-1.25) mg/dL Estimated GFR ML/MIN Glucose (74-106) mg/dL Lactic Acid (0.4-2.0) Calcium (8.4-10.2) mg/dL Total Bilirubin (0.2-1.3) mg/dL AST (17-59) U/L ALT (0-50) U/L Alkaline Phosphatase (38-126) U/L Creatine Kinase (55-170) U/L Troponin I (0.000-0.034) ng/mL Serum Total Protein (6.3-8.2) g/dL Albumin (3.5-5.0) g/dL Triglycerides (30-150) mg/dL Cholesterol (50-200) mg/dL LDL Cholesterol (30-100) mg/dL HDL Cholesterol (40-60) mg/dL Heart Disease Risk Ratio Lipase 47 (23-300) U/L Urine Opiates Level (NEGATIVE) Ur Methadone (NEGATIVE) Urine Barbiturates (NEGATIVE) Ur Phencyclidine (PCP) (NEGATIVE) Urine Amphetamine (NEGATIVE) U Benzodiazepine Level (NEGATIVE) Urine Cocaine (NEGATIVE) Urine Marijuana (THC) (NEGATIVE) Ethyl Alcohol < 10 (0-10) mg/dL 07/01/18 07/01/18 07/01/18 Range/Units 12:00 12:05 13:30 WBC (4.0-10.5) K/mm3 RBC (4.1-5.6) M/mm3 Hgb (12.5-18.0) gm/dl Hct (42-50) % MCV (78-100) fl MCH (26-32) pg MCHC (32-36) g/dl RDW (11.5-14.0) % Plt Count (150-450) K/mm3 MPV (6-9.5) fl Gran % (36.0-66.0) % Eos # (Auto) (0-0.5) Absolute Lymphs (auto) (1.0-4.6) Absolute Monos (auto) (0.0-1.3) Lymphocytes % (24.0-44.0) % Monocytes % (0.0-12.0) % Eosinophils % (0.00-5.0) % Basophils % (0.0-0.4) % Absolute Granulocytes (1.4-6.9) Basophils # (0-0.4) ESR (0-15) mm/hr PT (8.83-12.87) SECONDS INR (0.8-3.0) D-Dimer (215-500) ng/mL Sodium (137-145) mmol/L Potassium (3.5-5.1) mmol/L Chloride (98-107) mmol/L Carbon Dioxide (22-30) mmol/L Anion Gap (5-15) MEQ/L BUN (9-20) mg/dL Creatinine (0.66-1.25) mg/dL Estimated GFR ML/MIN Glucose (74-106) mg/dL Lactic Acid 3.0 H (0.4-2.0) Calcium (8.4-10.2) mg/dL Total Bilirubin (0.2-1.3) mg/dL AST (17-59) U/L ALT (0-50) U/L Alkaline Phosphatase (38-126) U/L Creatine Kinase (55-170) U/L Troponin I < 0.012 (0.000-0.034) ng/mL Serum Total Protein (6.3-8.2) g/dL Albumin (3.5-5.0) g/dL Triglycerides (30-150) mg/dL Cholesterol (50-200) mg/dL LDL Cholesterol (30-100) mg/dL HDL Cholesterol (40-60) mg/dL Heart Disease Risk Ratio Lipase (23-300) U/L Urine Opiates Level POSITIVE (NEGATIVE) Ur Methadone NEGATIVE (NEGATIVE) Urine Barbiturates NEGATIVE (NEGATIVE) Ur Phencyclidine (PCP) NEGATIVE (NEGATIVE) Urine Amphetamine NEGATIVE (NEGATIVE) U Benzodiazepine Level NEGATIVE (NEGATIVE) Urine Cocaine NEGATIVE (NEGATIVE) Urine Marijuana (THC) NEGATIVE (NEGATIVE) Ethyl Alcohol (0-10) mg/dL 07/01/18 07/01/18 07/01/18 Range/Units 15:10 15:20 18:15 WBC (4.0-10.5) K/mm3 RBC (4.1-5.6) M/mm3 Hgb (12.5-18.0) gm/dl Hct (42-50) % MCV (78-100) fl MCH (26-32) pg MCHC (32-36) g/dl RDW (11.5-14.0) % Plt Count (150-450) K/mm3 MPV (6-9.5) fl Gran % (36.0-66.0) % Eos # (Auto) (0-0.5) Absolute Lymphs (auto) (1.0-4.6) Absolute Monos (auto) (0.0-1.3) Lymphocytes % (24.0-44.0) % Monocytes % (0.0-12.0) % Eosinophils % (0.00-5.0) % Basophils % (0.0-0.4) % Absolute Granulocytes (1.4-6.9) Basophils # (0-0.4) ESR (0-15) mm/hr PT (8.83-12.87) SECONDS INR (0.8-3.0) D-Dimer (215-500) ng/mL Sodium (137-145) mmol/L Potassium (3.5-5.1) mmol/L Chloride (98-107) mmol/L Carbon Dioxide (22-30) mmol/L Anion Gap (5-15) MEQ/L BUN (9-20) mg/dL Creatinine (0.66-1.25) mg/dL Estimated GFR ML/MIN Glucose (74-106) mg/dL Lactic Acid 1.4 (0.4-2.0) Calcium (8.4-10.2) mg/dL Total Bilirubin (0.2-1.3) mg/dL AST (17-59) U/L ALT (0-50) U/L Alkaline Phosphatase (38-126) U/L Creatine Kinase (55-170) U/L Troponin I < 0.012 < 0.012 (0.000-0.034) ng/mL Serum Total Protein (6.3-8.2) g/dL Albumin (3.5-5.0) g/dL Triglycerides (30-150) mg/dL Cholesterol (50-200) mg/dL LDL Cholesterol (30-100) mg/dL HDL Cholesterol (40-60) mg/dL Heart Disease Risk Ratio Lipase (23-300) U/L Urine Opiates Level (NEGATIVE) Ur Methadone (NEGATIVE) Urine Barbiturates (NEGATIVE) Ur Phencyclidine (PCP) (NEGATIVE) Urine Amphetamine (NEGATIVE) U Benzodiazepine Level (NEGATIVE) Urine Cocaine (NEGATIVE) Urine Marijuana (THC) (NEGATIVE) Ethyl Alcohol (0-10) mg/dL 07/01/18 07/02/18 Range/Units 21:26 05:20 WBC (4.0-10.5) K/mm3 RBC (4.1-5.6) M/mm3 Hgb (12.5-18.0) gm/dl Hct (42-50) % MCV (78-100) fl MCH (26-32) pg MCHC (32-36) g/dl RDW (11.5-14.0) % Plt Count (150-450) K/mm3 MPV (6-9.5) fl Gran % (36.0-66.0) % Eos # (Auto) (0-0.5) Absolute Lymphs (auto) (1.0-4.6) Absolute Monos (auto) (0.0-1.3) Lymphocytes % (24.0-44.0) % Monocytes % (0.0-12.0) % Eosinophils % (0.00-5.0) % Basophils % (0.0-0.4) % Absolute Granulocytes (1.4-6.9) Basophils # (0-0.4) ESR (0-15) mm/hr PT (8.83-12.87) SECONDS INR (0.8-3.0) D-Dimer (215-500) ng/mL Sodium (137-145) mmol/L Potassium (3.5-5.1) mmol/L Chloride (98-107) mmol/L Carbon Dioxide (22-30) mmol/L Anion Gap (5-15) MEQ/L BUN (9-20) mg/dL Creatinine (0.66-1.25) mg/dL Estimated GFR ML/MIN Glucose (74-106) mg/dL Lactic Acid (0.4-2.0) Calcium (8.4-10.2) mg/dL Total Bilirubin (0.2-1.3) mg/dL AST (17-59) U/L ALT (0-50) U/L Alkaline Phosphatase (38-126) U/L Creatine Kinase (55-170) U/L Troponin I < 0.012 (0.000-0.034) ng/mL Serum Total Protein (6.3-8.2) g/dL Albumin (3.5-5.0) g/dL Triglycerides 117 (30-150) mg/dL Cholesterol 168 (50-200) mg/dL LDL Cholesterol 90 (30-100) mg/dL HDL Cholesterol 65 H (40-60) mg/dL Heart Disease Risk Ratio 2.6 Lipase (23-300) U/L Urine Opiates Level (NEGATIVE) Ur Methadone (NEGATIVE) Urine Barbiturates (NEGATIVE) Ur Phencyclidine (PCP) (NEGATIVE) Urine Amphetamine (NEGATIVE) U Benzodiazepine Level (NEGATIVE) Urine Cocaine (NEGATIVE) Urine Marijuana (THC) (NEGATIVE) Ethyl Alcohol (0-10) mg/dL - Radiology Exams Ordered Rad Exams-Entire Visit: Radiology Procedures Category Date Time Status ABDOMEN AND PELVIS W/0 CONTRAS [CT] Stat Exams 07/01/18 11:55 Completed CHEST 1 VIEW (PORTABLE) Stat Exams 07/01/18 11:53 Completed CHEST WITH CONTRAST [CT] Stat Exams 07/01/18 12:33 Completed HEAD WITHOUT CONTRAST [CT] Stat Exams 07/01/18 11:56 Completed - Procedures and Test Procedures and Tests throughout Hospitalization: Therapy Orders & Screens 07/01/18 19:51 EKG ONCE Comment: Diagnosis: Chest pain 07/02/18 05:00 EKG ONCE Comment: Diagnosis: Chest pain 07/03/18 05:00 EKG ONCE Comment: Diagnosis: Chest pain 07/04/18 05:00 EKG ONCE Comment: Diagnosis: Chest pain Discharge Exam General Appearance: no apparent distress, alert Neurologic Exam: oriented x 3, cooperative Skin Exam: normal color, warm, dry, No rash Ears, Nose, Throat Exam: moist mucous membranes Respiratory Exam: normal breath sounds, lungs clear, No crackles/rales, No rhonchi, No wheezing Cardiovascular Exam: regular rate/rhythm, normal heart sounds, No murmur Extremity Exam: normal inspection, No pedal edema, No swelling Final Diagnosis/Problem List - Final Discharge Diagnosis/Problem (1) Chest pain Current Visit: Yes Status: Acute Assessment & Plan: Troponins have been negative x 4. Will get outpatient stress test and echo. Code(s): R07.9 - CHEST PAIN, UNSPECIFIED (2) Vomiting Current Visit: Yes Status: Chronic Assessment & Plan: home on zofran prn Code(s): R11.10 - VOMITING, UNSPECIFIED (3) Headache Current Visit: Yes Status: Chronic Assessment & Plan: will continue tx in office Code(s): R51 - HEADACHE - Discharge Disposition: Home, Self-Care Condition: Stable Prescriptions: New Ondansetron ODT 4 MG [Zofran Odt 4 mg] 4 mg PO Q4H PRN #15 tab.rapdis PRN Reason: Vomiting Continue Amlodipine Besylate 5 mg [Norvasc 5 mg] 10 mg PO DAILY Aspirin 81 mg PO DAILY Naproxen 500 mg PO DAILY Nitroglycerin 0.4 mg SL Q5MIN PRN MR X 3 PRN PRN Reason: Chest Pain Follow up with: ADELIA ESPARZA [Primary Care Provider] - 07/09/18 11:15 am
[2018-07-02] MEDS: Naprosyn 500 MG PO SCH (09:59)
[2018-07-02] MEDS: NORVASC 5 MG PO SCH (09:59)
[2018-07-02] MEDS ORDERED: ECOTRIN 81 MG PO SCH (10:00)
[2018-07-02] MEDS ORDERED: Ecotrin 325 MG PO SCH (10:00)
[2018-07-02] MEDS ORDERED: NON-FORMULARY ITEM (Aspirin [Aspirin] 81 MG) PO SCH (10:00)
[2018-07-02 12:20] VITALS: BP 122/68; PULSE 70; O2SAT 96
== END 2018-07-02 12:32 | disposition home or self-care (01) ==
LOC: ED 11:47 → MED SURG 15:20
PROVIDERS: ADMIT Family Medicine; ATTEND Family Medicine
DX: R07.9 Chest pain, unspecified (principal); R11.2 Nausea with vomiting, unspecified; R51 Headache; R53.83 Other fatigue; R79.1 Abnormal coagulation profile; I10 Essential (primary) hypertension; F17.200 Nicotine dependence, unspecified, uncomplicated; Z79.899 Other long term (current) drug therapy
CPT/HCPCS: 36000; 36415; 70450; 71045; 71260; 74176; 80053; 80061; 80307; 82550; 83605; 83690; 83721; 84484; 85025; 85379; 85610; 85652; 93005; 93041; 93268; 93306; 96360; 96374; 96375; 99285; G0378; J2270; J2405; A9270-GY; G0480

== ENCOUNTER 2018-10-07 06:19 | Day surgery (SDC) | payer OTHER ==
[2018-10-07] MEDS ORDERED: Lactated Ringers 1,000 ML IV ONE (06:50)
[2018-10-07] MEDS ORDERED: Lactated Ringers 1,000 ML IV SCH (07:00)
[2018-10-07 07:23] VITALS: O2SAT 99
[2018-10-07] MEDS ORDERED: Ketamine HCl 50 MG/ML ONE (08:12)
[2018-10-07] MEDS ORDERED: DIPRIVAN 200 MG/20 ML IV ONE (08:12)
--- NOTE | 2018-10-07 09:29 | OP ---
SURGERY DATE/TIME: 10/07/2018 0815 PREOPERATIVE DIAGNOSIS: Dysphagia. POSTOPERATIVE DIAGNOSES: 1) Duodenitis. 2) Gastritis. 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 PROCEDURE: Esophagogastroduodenoscopy with biopsy. SURGEON: Dr. Solares. ANESTHESIA: Medications were given by the anesthesia department. BRIEF HISTORY: The patient is a 63 year old white male smoker who reports he has been having problems for the past two months with dysphagia with food becoming stuck in the mid portion of his chest. The patient was felt to need to have endoscopic evaluation. He was appraised of the risks of the procedure including the risk of perforation, phlebitis, untoward reaction to medication, bleeding and missed lesions. The patient verbalized his understanding and desired to have the procedure performed. DESCRIPTION OF PROCEDURE: The patient given the medications by the anesthesia department. He had continuous pulse oximetry, ECG monitoring, intermittent blood pressure monitoring and tidal CO2 monitoring during the examination. He was placed in the left lateral decubitus position. A bite block was placed and the flexible Olympus gastroscope was used to intubate the oropharynx. A view of the larynx was obtained and was normal. The scope was easily introduced in the esophagus which appeared to be normal to the gastroesophageal junction where there appeared to be very mild stricture but we were easily able to pass the scope through this area without any difficulty. The scope is passed through the stomach where normal gastric rugal folds were seen and these distended nicely with insufflation of air. The scope was passed along the greater curvature of the stomach to the antrum. The pylorus encountered and intubated. The duodenum inspected and found to have erythematous portion of the second portion of the duodenum this is biopsied. No obvious ulcer was noted but it was moderately erythematous. The scope is withdrawn towards the stomach. Biopsies obtained from what appeared to be a reactive-type gastropathy and also to rule out the presence of Helicobacter pylori-type organisms. Retroflex view of the lesser curvature of fundus and cardia region of the stomach appeared to be normal without any evidence of hiatal hernia. The scope was then withdrawn from the patient with careful inspection upon withdrawal. No other mucosal lesions being encountered, the scope was removed from the patient who tolerated the procedure well and sent back to outpatient recovery in good condition. The patient was to stop taking aspirin and was asked to begin taking omeprazole twice daily until we can see him in the office in one week for follow up of the biopsies.
[2018-10-07 09:46] VITALS: BP 123/66; PULSE 72
== END 2018-10-07 10:04 | disposition home or self-care (01) ==
LOC: SDC 06:19
PROVIDERS: ATTEND Family Medicine
DX: K29.80 Duodenitis without bleeding (principal); K29.70 Gastritis, unspecified, without bleeding; K22.2 Esophageal obstruction
CPT/HCPCS: 88305; 88342; J2704

== ENCOUNTER 2019-03-05 10:11 | Emergency (ER) | payer OTHER ==
[2019-03-05] MEDS ORDERED: MORPHINE SULFATE 4 MG INJ IV ONE (10:55)
[2019-03-05] MEDS ORDERED: Sodium Chloride 0.9% 1000 ML 1,000 ML IV STA (10:55)
[2019-03-05] MEDS ORDERED: Zofran 4 MG/2 ML VIAL IV ONE (10:55)
[2019-03-05] MEDS ORDERED: Pepcid 20 MG VIAL IV ONE ×2 (10:55→11:07)
[2019-03-05] MEDS ORDERED: BABY ASPIRIN 81 MG CHEW PO ONE (10:55)
--- NOTE | 2019-03-05 10:55 | ERPHSYRPT ---
- History of Present Illness Time Seen by Provider: 03/05/19 10:30 Historian: patient Exam Limitations: no limitations Patient Subjective Stated Complaint: pain in the medial sternum which then causes his head to hurt and then his feet get cramps Triage Nursing Assessment: Pt presents to the ER with his friend, hypertensive, pulses normal, no edema, reports that he has been vomiting and that he hasn't eaten for 2 days, rates chest and head pain as 8/10, lungs clear Physician History: 63 y/o white male presents with chronic intermittent substernal burning chest pain. like a bad heartburn. pt is a smoker. pt states he has had associated n/v and headache. current sx began 3 days ago. 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 Timing/Duration: intermittent, worse (in last 2 to 3 days), other (chronic) Quality: burning Location: substernal, central Chest Pain Radiation: no radiation Severity of Pain-Max: moderate Severity of Pain-Current: moderate Modifying Factors: Improves With: nothing Associated Symptoms: heartburn, No nausea, No vomiting, No abdominal pain, No cough Prior Chest Pain/Cardiac Workup: cardiac cath (in past) Nitro Today/Relief: no nitro taken today Aspirin Treatment Today: no aspirin today Allergies/Adverse Reactions: codeine Adverse Reaction (Mild, Verified 03/05/19 10:24) Nausea states "i can take it , it just bothers my stomach" Home Medications: Amlodipine Besylate 5 mg [Norvasc 5 mg] 10 mg PO DAILY 02/10/16 [History] Nitroglycerin 0.4 mg SL Q5MIN PRN MR X 3 PRN 07/01/18 [History] Carvedilol 3.125 mg [Coreg 3.125 MG] 3.125 mg PO DAILY 10/03/18 [History] Pravastatin Sodium [Pravachol] 40 mg PO DAILY 10/03/18 [History] Albuterol Sulfate [Albuterol Sulfate Hfa] 2 inh PO QID 03/05/19 [History] Amitriptyline HCl 10 mg [Elavil 10 mg] 10 mg PO BID 03/05/19 [History] Umeclidinium Brm/Vilanterol Tr [Anoro Ellipta 62.5-25 Mcg INH] 1 each IH UD 11/14 [History] Hx Tetanus, Diphtheria Vaccination/Date Given: Yes (up to date) Hx Influenza Vaccination/Date Given: No Hx Pneumococcal Vaccination/Date Given: No - Review of Systems Constitutional: No Symptoms Eyes: No Symptoms Ears, Nose, & Throat: No Symptoms Respiratory: No Symptoms Cardiac: Chest Pain Abdominal/Gastrointestinal: No Symptoms Genitourinary Symptoms: No Symptoms Musculoskeletal: No Symptoms Skin: No Symptoms Neurological: No Symptoms Psychological: No Symptoms Endocrine: No Symptoms Hematologic/Lymphatic: No Symptoms Immunological/Allergic: No Symptoms All Other Systems: Reviewed and Negative - Past Medical History Pertinent Past Medical History: Yes Neurological History: Migraines ENT History: Cataracts Cardiac History: Angina, High Cholesterol, Hypertension Respiratory History: No Pertinent History Endocrine Medical History: No Pertinent History Musculoskeletal History: Arthritis GI Medical History: Other History: No Pertinent History Psycho-Social History: No Pertinent History Male Reproductive Disorders: No Pertinent History Other Medical History: states bharat. cataract surgery,"feel like something is sutck in my upper chest all the time" " sometimes i just get out of breath" - Past Surgical History Past Surgical History: Yes Neuro Surgical History: No Pertinent History Cardiac: Cardiac Catheterization Respiratory: No Pertinent History Gastrointestinal: Appendectomy Genitourinary: No Pertinent History Musculoskeletal: No Pertinent History Male Surgical History: No Pertinent History Other Surgical History: bilateral cataract with IOL implant , heart cath " less than a yr ago" " no stent because it was about 60% open for now" - Social History Smoking Status: Current every day smoker How long have you smoked: 45 years Exposure to second hand smoke: Yes Drug Use: none Patient Lives Alone: No - Nursing Vital Signs Nursing Vital Signs: Initial Vital Signs Temperature 97.9 F 03/05/19 10:12 Pulse Rate 103 H 03/05/19 10:12 Respiratory Rate 18 03/05/19 10:12 Blood Pressure 150/87 03/05/19 10:12 O2 Sat by Pulse Oximetry 100 03/05/19 10:12 Pain Scale Pain Intensity 8 - Physical Exam General Appearance: mild distress, alert, anxiety Eye Exam: PERRL/EOMI, eyes nml inspection Ears, Nose, Throat Exam: normal ENT inspection, moist mucous membranes Neck Exam: normal inspection, non-tender, supple, full range of motion Respiratory Exam: normal breath sounds, chest tenderness, lungs clear, airway intact, No respiratory distress Cardiovascular Exam: regular rate/rhythm, normal heart sounds, normal peripheral pulses Gastrointestinal/Abdomen Exam: soft, normal bowel sounds, No tenderness Rectal Exam: not done Back Exam: normal inspection, normal range of motion, No CVA tenderness, No vertebral tenderness Extremity Exam: normal inspection, normal range of motion, pelvis stable Neurologic Exam: alert, oriented x 3, cooperative, bead cutter II-XII nml as tested Skin Exam: normal color, warm, dry Lymphatic Exam: No adenopathy SpO2 Interpretation: normal SpO2: 100 O2 Delivery: Room Air - Course Nursing assessment & vital signs reviewed: Yes EKG Interpreted by Me: RATE (95), Sinus Rhythm, NORMAL AXIS, NORMAL INTERVALS, NORMAL QRS, Non-specific ST Changes, Other (new nonspecific st changes when compared to ekg dated 07/02/18) Ordered Tests: Active Orders 24 hr Category Date Time Status Fire Observer STAT Care 03/05/19 10:57 Active EKG-ER Only STAT Care 03/05/19 10:55 Active IV Insertion STAT Care 03/05/19 10:55 Active Pulse Oximetry (ED) STAT Care 03/05/19 10:55 Active CHEST 1 VIEW (PORTABLE) Stat Exams 03/05/19 10:55 Completed CBC W DIFF Stat Lab 03/05/19 11:15 Completed CMP Stat Lab 03/05/19 11:15 Completed D-DIMER QUANTITATIVE Stat Lab 03/05/19 11:15 Completed NT PRO BNP Stat Lab 03/05/19 11:15 Completed TROPONIN Q3H Lab 03/05/19 11:15 Completed TROPONIN Q3H Lab 03/05/19 14:15 Completed TROPONIN Q3H Lab 03/05/19 17:00 Ordered TROPONIN Q3H Lab 03/05/19 20:00 Ordered TROPONIN Q3H Lab 03/05/19 23:00 Ordered Medication Summary Discontinued Medications Generic Name Dose Route Start Last Admin Trade Name Freq PRN Reason Stop Dose Admin Al Hydrox/Mg Hydrox/Simethicone Confirm 03/05/19 12:43 Maalox Es 30 Ml Unit Dose Administered 03/05/19 12:44 Dose 30 ml .ROUTE .STK-MED ONE Aspirin 324 mg 03/05/19 10:55 03/05/19 11:14 Baby Aspirin 81 Mg Chew PO 03/05/19 10:56 324 mg STAT ONE Administration Aspirin Confirm 03/05/19 11:10 Baby Aspirin 81 Mg Chew Administered 03/05/19 11:11 Dose 324 mg .ROUTE .STK-MED ONE Famotidine 20 mg 03/05/19 10:55 03/05/19 11:15 Pepcid 20 Mg Vial IV 03/05/19 10:56 20 mg STAT ONE Administration Famotidine Confirm 03/05/19 11:07 Pepcid 20 Mg Vial Administered 03/05/19 11:08 Dose 20 mg IV .STK-MED ONE Sodium Chloride 1,000 mls @ 999 mls/hr 03/05/19 10:55 03/05/19 12:38 Sodium Chloride 0.9% 1000 Ml IV 03/05/19 11:55 Infused .Q1H1M STA Infusion Sodium Chloride Confirm 03/05/19 11:08 Sodium Chloride 0.9% 1000 Ml Administered 03/05/19 11:09 Dose 1,000 mls @ ud .ROUTE .STK-MED ONE Lidocaine HCl Confirm 03/05/19 12:43 Xylocaine Hcl Viscous * Administered 03/05/19 12:44 Dose 15 ml .ROUTE .STK-MED ONE Magnesium Hydroxide 45 ml 03/05/19 12:43 03/05/19 12:46 Gi Cocktail 45 Ml (Maalox/Lidocaine) PO 03/05/19 12:44 45 ml STAT ONE Administration Morphine Sulfate 4 mg 03/05/19 10:55 03/05/19 11:14 Morphine Sulfate 4 Mg Inj IV 03/05/19 10:56 4 mg STAT ONE Administration Morphine Sulfate Confirm 03/05/19 11:08 Morphine Sulfate 4 Mg Inj Administered 03/05/19 11:09 Dose 4 mg .ROUTE .STK-MED ONE Ondansetron HCl 4 mg 03/05/19 10:55 03/05/19 11:15 Zofran 4 Mg/2 Ml Vial IV 03/05/19 10:56 4 mg STAT ONE Administration Ondansetron HCl Confirm 03/05/19 11:07 Zofran 4 Mg/2 Ml Vial Administered 03/05/19 11:08 Dose 4 mg .ROUTE .STK-MED ONE Lab/Rad Data: Laboratory Result Diagrams 03/05/19 11:15 03/05/19 11:15 Laboratory Results 03/05/19 03/05/19 03/05/19 Range/Units 14:15 11:15 11:15 WBC (4.0-10.5) K/mm3 RBC (4.1-5.6) M/mm3 Hgb (12.5-18.0) gm/dl Hct (42-50) % MCV (78-100) fl MCH (26-32) pg MCHC (32-36) g/dl RDW (11.5-14.0) % Plt Count (150-450) K/mm3 MPV (7.5-11.0) fl Gran % (36.0-66.0) % Eos # (Auto) (0-0.5) Absolute Lymphs (auto) (1.0-4.6) Absolute Monos (auto) (0.0-1.3) Lymphocytes % (24.0-44.0) % Monocytes % (0.0-12.0) % Eosinophils % (0.00-5.0) % Basophils % (0.0-0.4) % Absolute Granulocytes (1.4-6.9) Basophils # (0-0.4) D-Dimer 500 (215-500) ng/mL Sodium (137-145) mmol/L Potassium (3.5-5.1) mmol/L Chloride (98-107) mmol/L Carbon Dioxide (22-30) mmol/L Anion Gap (5-15) MEQ/L BUN (9-20) mg/dL Creatinine (0.66-1.25) mg/dL Estimated GFR ML/MIN Glucose (74-106) mg/dL Calcium (8.4-10.2) mg/dL Total Bilirubin (0.2-1.3) mg/dL AST (17-59) U/L ALT (0-50) U/L Alkaline Phosphatase (38-126) U/L Troponin I < 0.012 < 0.012 (0.000-0.034) ng/mL NT-Pro-B Natriuret Pep (0-900) pg/mL Serum Total Protein (6.3-8.2) g/dL Albumin (3.5-5.0) g/dL Slides for Path Review 03/05/19 03/05/19 Range/Units 11:15 11:15 WBC 8.7 (4.0-10.5) K/mm3 RBC 4.57 (4.1-5.6) M/mm3 Hgb 15.1 (12.5-18.0) gm/dl Hct 44.2 (42-50) % MCV 96.7 (78-100) fl MCH 33.0 H (26-32) pg MCHC 34.2 (32-36) g/dl RDW 14.7 H (11.5-14.0) % Plt Count 124 L (150-450) K/mm3 MPV 8.9 (7.5-11.0) fl Gran % 85.9 H (36.0-66.0) % Eos # (Auto) 0.01 (0-0.5) Absolute Lymphs (auto) 0.53 L (1.0-4.6) Absolute Monos (auto) 0.67 (0.0-1.3) Lymphocytes % 6.1 L (24.0-44.0) % Monocytes % 7.7 (0.0-12.0) % Eosinophils % 0.1 (0.00-5.0) % Basophils % 0.2 (0.0-0.4) % Absolute Granulocytes 7.48 H (1.4-6.9) Basophils # 0.02 (0-0.4) D-Dimer (215-500) ng/mL Sodium 137 (137-145) mmol/L Potassium 4.1 (3.5-5.1) mmol/L Chloride 100 (98-107) mmol/L Carbon Dioxide 26 (22-30) mmol/L Anion Gap 14.5 (5-15) MEQ/L BUN 8 L (9-20) mg/dL Creatinine 0.68 (0.66-1.25) mg/dL Estimated GFR > 60.0 ML/MIN Glucose 117 H (74-106) mg/dL Calcium 9.6 (8.4-10.2) mg/dL Total Bilirubin 0.90 (0.2-1.3) mg/dL AST 47 (17-59) U/L ALT 19 (0-50) U/L Alkaline Phosphatase 125 (38-126) U/L Troponin I (0.000-0.034) ng/mL NT-Pro-B Natriuret Pep 275 (0-900) pg/mL Serum Total Protein 8.4 H (6.3-8.2) g/dL Albumin 4.3 (3.5-5.0) g/dL Slides for Path Review YES - Progress Air Movement: good Progress Note: 03/05/19 14:25 cxr-no acute process pt cp and abd pain improved significantly. Blood Culture(s) Obtained: No Antibiotics given: No Counseled pt/family regarding: lab results, diagnosis, need for follow-up, rad results - Departure Departure Disposition: Home Clinical Impression: Chest pain, non-cardiac Condition: Stable Critical Care Time: No Referrals: ADELIA ESPARZA [Primary Care Provider] - Additional Instructions: drink plenty of fluids. follow up with your primary doctor, environmental health physician and regional flatbed truck driver for further management Prescriptions: Ondansetron HCl [Zofran] 4 mg PO TID PRN #10 tablet PRN Reason: Nausea/Vomiting
[2019-03-05] MEDS ORDERED: Zofran 4 MG/2 ML VIAL ONE (11:07)
[2019-03-05] MEDS ORDERED: MORPHINE SULFATE 4 MG INJ ONE (11:08)
[2019-03-05] MEDS ORDERED: Sodium Chloride 0.9% 1000 ML 1,000 ML ONE (11:08)
[2019-03-05] MEDS ORDERED: BABY ASPIRIN 81 MG CHEW ONE (11:10)
[2019-03-05 11:26] LABS: Absolute Neutrophil Ct (ANC) 7.48 (1.4-6.9); BASOPHIL % 0.2 % (0.0-0.4); Basophil (Absolute #) 0.02 (0-0.4); Eosinophil % 0.1 % (0.00-5.0); Eosinophil (Absolute #) 0.01 (0-0.5); Hematocrit 44.2 % (42-50); Hemoglobin 15.1 gm/dl (12.5-18.0); Lymphocyte (Absolute #) 0.53 (1.0-4.6); Lymphocytes % 6.1 % (24.0-44.0); Mean Cell Volume 96.7 fl (78-100); Mean Corpuscular Hgb Concent. 34.2 g/dl (32-36); Mean Platelet Volume 8.9 fl (7.5-11.0); Monocyte (Absolute #) 0.67 (0.0-1.3); Monocytes % 7.7 % (0.0-12.0); Neutrophil % 85.9 % (36.0-66.0); Platelet Count 124 K/mm3 (150-450); Red Blood Count 4.57 M/mm3 (4.1-5.6); Red Cell Distribution Width 14.7 % (11.5-14.0); White Blood Count 8.7 K/mm3 (4.0-10.5)
[2019-03-05 11:50] LABS: ALBUMIN 4.3 g/dL (3.5-5.0); ALKALINE PHOSPHATASE 125 U/L (38-126); ANION GAP 14.5 MEQ/L (5-15); BLOOD UREA NITROGEN 8 mg/dL (9-20); CHLORIDE 100 mmol/L (98-107); Calcium 9.6 mg/dL (8.4-10.2); Carbon Dioxide 26 mmol/L (22-30); Creatinine 1 0.68 mg/dL (0.66-1.25); Glucose 117 mg/dL (74-106); NT PRO BNP 275 pg/mL (0-900); Potassium 4.1 mmol/L (3.5-5.1); SGOT/AST 47 U/L (17-59); SGPT/ALT 19 U/L (0-50); SODIUM 137 mmol/L (137-145); Total Protein 8.4 g/dL (6.3-8.2)
--- NOTE | 2019-03-05 12:02 | XRAY ---
Indication: Chest pain, vomiting, and headache. Comparison: July 01, 2018. Portable chest remains hyperinflated and clear. Heart and mediastinal structures within normal limits. Bony thorax intact. Impression: Stable nonacute hyperinflated chest.
[2019-03-05] MEDS ORDERED: XYLOCAINE HCl Viscous ONE (12:43)
[2019-03-05] MEDS ORDERED: GI COCKTAIL 45 ML (Maalox/Lidocaine) PO ONE (12:43)
[2019-03-05] MEDS ORDERED: MAALOX ES 30 ML UNIT DOSE ONE (12:43)
[2019-03-05 13:24] LABS: Slide Review 1 YES
[2019-03-05 14:27] VITALS: O2SAT 100
[2019-03-05 14:42] VITALS: PULSE 99
[2019-03-05 15:19] VITALS: BP 138/84
== END 2019-03-05 15:25 | disposition home or self-care (01) ==
LOC: ED 10:11
DX: I10 Essential (primary) hypertension (principal); Z79.899 Other long term (current) drug therapy; E78.00 Pure hypercholesterolemia, unspecified; M19.90 Unspecified osteoarthritis, unspecified site
CPT/HCPCS: 36000; 36415; 71045; 80053; 83880; 84484; 85025; 85379; 93005; 93041; 94760; 96360; 96374; 96375; 99285; J2270; J2405; A9270-GY

== ENCOUNTER 2022-06-09 15:47 | Inpatient (IN) | payer MEDICARE ==
[2022-06-09] MEDS ORDERED: Sodium Chloride 0.9% 1000 ML 1,000 ML IV STA (16:04)
[2022-06-09] MEDS ORDERED: Sodium Chloride 0.9% 1000 ML 1,000 ML ONE (16:16)
[2022-06-09 16:39] LABS: Absolute Neutrophil Ct (ANC) 11.26 x10^3/uL (1.4-6.9); BASOPHIL % 0.4 % (0.0-0.4); Basophil (Absolute #) 0.05 x10^3/uL (0-0.4); Eosinophil % 0.1 % (0.00-5.0); Eosinophil (Absolute #) 0.01 x10^3/uL (0-0.5); Hematocrit 42.6 % (42-50); Hemoglobin 13.6 g/dL (12.5-18.0); IMMATURE GRAN # 0.05 x10^3u/L (0.00-0.03); IMMATURE GRAN % 0.4 % (0.00-0.4); Lymphocyte (Absolute #) 1.27 x10^3/uL (1.0-4.6); Lymphocytes % 9.2 % (24.0-44.0); Mean Cell Volume 103.6 fL (78-100); Mean Corpuscular Hemoglobin 33.1 pg (26-32); Mean Corpuscular Hgb Concent. 31.9 g/dL (32-36); Mean Platelet Volume 9.8 fL (7.5-11.0); Monocyte (Absolute #) 1.22 x10^3/uL (0.0-1.3); Monocytes % 8.8 % (0.0-12.0); Neutrophil % 81.1 % (36.0-66.0); Platelet Count 242 x10^3/uL (150-450); Red Blood Count 4.11 x10^6/uL (4.1-5.6); Red Cell Distribution Width 14.4 % (11.5-14.0); White Blood Count 13.9 x10^3/uL (4.0-10.5)
--- NOTE | 2022-06-09 16:39 | ERPHSYRPT ---
- History of Present Illness Time Seen by Provider: 06/09/22 16:35 Source: patient, EMS Exam Limitations: no limitations Patient Subjective Stated Complaint: pt here for weaknes, sob for a week now, he states he is not eating and drinking well, Triage Nursing Assessment: pt arrived per ambulance, alert, resp easy, no cough, skin w/d/p wheezes heard, no edema noted Physician History: Patient is 67-year-old male with significant past medical history of hypertension COPD hypothyroidism has been not feeling well for at least last 1 week. He has been feeling short of breath weak lethargic and not able to eat or drink well for last 1 week. Patient also complains of low-grade fever with mild chills. Patient denies any nausea vomiting diarrhea constipation blood in the urine or stool. Timing/Duration: week(s) (one week) Severity of Dyspnea-Max: mild Severity of Dyspnea-Current: mild Possible Cause: no prior episodes Associated Symptoms: weakness Allergies/Adverse Reactions: codeine Adverse Reaction (Mild, Verified 05/03/22 10:28) Nausea states "i can take it , it just bothers my stomach" Home Medications: Amlodipine Besylate 5 mg [Norvasc 5 mg] 10 mg PO DAILY 02/10/16 [History] Nitroglycerin 0.4 mg SL Q5MIN PRN MR X 3 PRN 07/01/18 [History] Carvedilol 3.125 mg [Coreg 3.125 MG] 3.125 mg PO BID 10/03/18 [History] Albuterol Sulfate [Albuterol Sulfate Hfa] 2 inh PO QID 03/05/19 [History] Levothyroxine Sodium 25 Mcg [Synthroid 25 Mcg] 50 mcg PO DAILY 05/03/22 [History] Fluticasone/Umeclidin/Vilanter [Trelegy Ellipta 200-62.5-25] 1 dose DAILY 06/09/22 [History] Hx Tetanus, Diphtheria Vaccination/Date Given: No Hx Influenza Vaccination/Date Given: No Hx Pneumococcal Vaccination/Date Given: No Immunizations Up to Date: Yes Travel Risk - International Travel Have you traveled outside of the country in past 3 weeks: No - Coronavirus Screening Are you exhibiting any of the following symptoms?: No Close contact with a COVID-19 positive Pt in past 14-21 Days: No - Vaccine Status Have you recieved a Covid-19 vaccination: No - Review of Systems Constitutional: Fever, Chills, Lethargy, Weakness Eyes: No Symptoms Ears, Nose, & Throat: No Symptoms Respiratory: Dyspnea, No Cough Cardiac: No Chest Pain, No Edema, No Syncope Abdominal/Gastrointestinal: No Abdominal Pain, No Nausea, No Vomiting, No Diarrhea Genitourinary Symptoms: No Dysuria Musculoskeletal: No Back Pain, No Neck Pain Skin: No Rash Neurological: No Dizziness, No Focal Weakness, No Sensory Changes Psychological: No Symptoms Endocrine: No Symptoms All Other Systems: Reviewed and Negative - Past Medical History Pertinent Past Medical History: Yes Neurological History: Migraines ENT History: Cataracts Cardiac History: Angina, High Cholesterol, Hypertension Respiratory History: COPD Endocrine Medical History: No Pertinent History Musculoskeletal History: Arthritis GI Medical History: Other History: No Pertinent History Psycho-Social History: No Pertinent History Male Reproductive Disorders: No Pertinent History Other Medical History: states bharat. cataract surgery,"feel like something is sutck in my upper chest all the time" " sometimes i just get out of breath" - Past Surgical History Past Surgical History: Yes Neuro Surgical History: No Pertinent History Cardiac: Cardiac Catheterization Respiratory: No Pertinent History Gastrointestinal: Appendectomy Genitourinary: No Pertinent History Musculoskeletal: No Pertinent History Male Surgical History: No Pertinent History Other Surgical History: bilateral cataract with IOL implant , heart cath " less than a yr ago" " no stent because it was about 60% open for now" - Social History Smoking Status: Former smoker How long have you smoked: 45 years Exposure to second hand smoke: Yes Drug Use: none Patient Lives Alone: No - Nursing Vital Signs Nursing Vital Signs: Initial Vital Signs Temperature 97.2 F 06/09/22 16:08 Pulse Rate 122 H 06/09/22 16:08 Respiratory Rate 12 06/09/22 16:08 Blood Pressure 105/73 06/09/22 16:08 O2 Sat by Pulse Oximetry 98 06/09/22 16:08 Pain Scale Pain Intensity 0 - Physical Exam General Appearance: mild distress, alert Eye Exam: PERRL/EOMI Ears, Nose, Throat Exam: normal ENT inspection, normal pharynx Neck Exam: normal inspection, supple Respiratory Exam: diminished breath sounds, rhonchi Cardiovascular/Chest Exam: normal heart sounds, regular rate/rhythm Abdominal/Gastrointestinal Exam: soft, normal bowel sounds, distention, No tenderness, No mass Extremity Exam: non-tender, normal range of motion, normal inspection, no calf tenderness, no pedal edema Neurologic Exam: alert, oriented x 3, cooperative, system admin II-XII nml as tested, sensation nml, No motor deficits Skin Exam: normal color, warm, No dry SpO2 Interpretation: normal SpO2: 98 O2 Delivery: Room Air - Course Nursing assessment & vital signs reviewed: Yes EKG Interpreted by Me: Sinus Rhythm - Radiology Exams Chest X-ray Interpretation: Reviewed by me (left lower lobe infiltrate) Ordered Tests: Active Orders 24 hr Category Date Time Status Associate Designer STAT Care 06/09/22 16:06 Active EKG-ER Only STAT Care 06/09/22 16:04 Active IV Insertion STAT Care 06/09/22 16:11 Active Oxygen-ED Only Nasal Cannula 2 lpm Care 06/09/22 16:04 Active CHEST 2 VIEWS (PA AND LAT) Stat Exams 06/09/22 16:05 Taken AMYLASE Stat Lab 06/09/22 16:37 Completed CBC W DIFF Stat Lab 06/09/22 16:37 Completed CMP Stat Lab 06/09/22 16:37 Completed LIPASE Stat Lab 06/09/22 16:37 Completed MAGNESIUM Stat Lab 06/09/22 16:37 Completed NT PRO BNPII Stat Lab 06/09/22 16:37 Completed TROPONIN Q4H Lab 06/09/22 16:37 Completed TROPONIN Q4H Lab 06/09/22 20:15 Ordered TROPONIN Q4H Lab 06/10/22 00:15 Ordered UA W/RFX UR CULTURE Stat Lab 06/09/22 16:05 Ordered Medication Summary Generic Name Dose Route Start Last Admin Trade Name Freq PRN Reason Stop Dose Admin Ceftriaxone Sodium/Dextrose 1 g in 50 mls @ 100 mls/hr 06/09/22 16:58 Rocephin 1 Gm-D5w 50 Ml Bag IV 06/09/22 17:27 STAT STA Discontinued Medications Generic Name Dose Route Start Last Admin Trade Name Freq PRN Reason Stop Dose Admin Sodium Chloride 1,000 mls @ 999 mls/hr 06/09/22 16:04 06/09/22 16:21 Sodium Chloride 0.9% 1000 Ml IV 06/09/22 17:04 999 mls/hr .Q1H1M STA Administration Sodium Chloride Confirm 06/09/22 16:16 Sodium Chloride 0.9% 1000 Ml Administered 06/09/22 16:17 Dose 1,000 mls @ ud .ROUTE .[facility]-MED ONE Lab/Rad Data: Laboratory Result Diagrams 06/09/22 16:37 06/09/22 16:37 Laboratory Results 06/09/22 06/09/22 06/09/22 Range/Units 16:37 16:37 16:37 WBC (4.0-10.5) x10^3/uL RBC (4.1-5.6) x10^6/uL Hgb (12.5-18.0) g/dL Hct (42-50) % MCV (78-100) fL MCH (26-32) pg MCHC (32-36) g/dL RDW (11.5-14.0) % Plt Count (150-450) x10^3/uL MPV (7.5-11.0) fL Gran % (36.0-66.0) % Immature Gran % (Auto) (0.00-0.4) % Nucleat RBC Rel Count (0.00-0.1) % Eos # (Auto) (0-0.5) x10^3/uL Immature Gran # (Auto) (0.00-0.03) x10^3u/L Absolute Lymphs (auto) (1.0-4.6) x10^3/uL Absolute Monos (auto) (0.0-1.3) x10^3/uL Absolute Nucleated RBC (0.00-0.01) x10^3u/L Lymphocytes % (24.0-44.0) % Monocytes % (0.0-12.0) % Eosinophils % (0.00-5.0) % Basophils % (0.0-0.4) % Absolute Granulocytes (1.4-6.9) x10^3/uL Basophils # (0-0.4) x10^3/uL Sodium (137-145) mmol/L Potassium (3.5-5.1) mmol/L Chloride (98-107) mmol/L Carbon Dioxide (22-30) mmol/L Anion Gap (5-15) MEQ/L BUN (9-20) mg/dL Creatinine (0.66-1.25) mg/dL Estimated GFR ML/MIN Glucose (74-106) mg/dL Calcium (8.4-10.2) mg/dL Magnesium (1.6-2.3) mg/dL Total Bilirubin (0.2-1.3) mg/dL AST (17-59) U/L ALT (0-50) U/L Alkaline Phosphatase (38-126) U/L Ammonia 9 (9-30) umol/L Troponin I < 0.012 (0.000-0.034) ng/mL NT-Pro-B Natriuret Pep 398 (<300) pg/mL Serum Total Protein (6.3-8.2) g/dL Albumin (3.5-5.0) g/dL Amylase (30-110) U/L Lipase (23-300) U/L 06/09/22 06/09/22 Range/Units 16:37 16:37 WBC 13.9 H (4.0-10.5) x10^3/uL RBC 4.11 (4.1-5.6) x10^6/uL Hgb 13.6 (12.5-18.0) g/dL Hct 42.6 (42-50) % MCV 103.6 H (78-100) fL MCH 33.1 H (26-32) pg MCHC 31.9 L (32-36) g/dL RDW 14.4 H (11.5-14.0) % Plt Count 242 (150-450) x10^3/uL MPV 9.8 (7.5-11.0) fL Gran % 81.1 H (36.0-66.0) % Immature Gran % (Auto) 0.4 (0.00-0.4) % Nucleat RBC Rel Count 0.0 (0.00-0.1) % Eos # (Auto) 0.01 (0-0.5) x10^3/uL Immature Gran # (Auto) 0.05 H (0.00-0.03) x10^3u/L Absolute Lymphs (auto) 1.27 (1.0-4.6) x10^3/uL Absolute Monos (auto) 1.22 (0.0-1.3) x10^3/uL Absolute Nucleated RBC 0.00 (0.00-0.01) x10^3u/L Lymphocytes % 9.2 L (24.0-44.0) % Monocytes % 8.8 (0.0-12.0) % Eosinophils % 0.1 (0.00-5.0) % Basophils % 0.4 (0.0-0.4) % Absolute Granulocytes 11.26 H (1.4-6.9) x10^3/uL Basophils # 0.05 (0-0.4) x10^3/uL Sodium 137 (137-145) mmol/L Potassium 3.4 L (3.5-5.1) mmol/L Chloride 102 (98-107) mmol/L Carbon Dioxide 21 L (22-30) mmol/L Anion Gap 17.4 H (5-15) MEQ/L BUN 7 L (9-20) mg/dL Creatinine 0.59 L (0.66-1.25) mg/dL Estimated GFR > 60.0 ML/MIN Glucose 115 H (74-106) mg/dL Calcium 7.3 L (8.4-10.2) mg/dL Magnesium 1.7 (1.6-2.3) mg/dL Total Bilirubin 0.80 (0.2-1.3) mg/dL AST 38 (17-59) U/L ALT 20 (0-50) U/L Alkaline Phosphatase 157 H (38-126) U/L Ammonia (9-30) umol/L Troponin I (0.000-0.034) ng/mL NT-Pro-B Natriuret Pep (<300) pg/mL Serum Total Protein 6.7 (6.3-8.2) g/dL Albumin 2.6 L (3.5-5.0) g/dL Amylase 42 (30-110) U/L Lipase 34 (23-300) U/L - Progress Progress: improved Air Movement: good Blood Culture(s) Obtained: No Antibiotics given: Yes Discussed with : John Martines Will see patient in: hospital (observation) Counseled pt/family regarding: lab results, diagnosis, need for follow-up, rad results Medical Desision Making - External Record(s) Reviewed Records reviewed as a part of evaluation & management: Inpatient - Discussion of managment Agreed on:: Treatment plan, need for follow-up, decision to admit, place in obs - Diagnostic Testing Diagnostic test were ordered, analyzed, and reviewed by me: Yes Radiological Interpretation: Interpreted by me, Reviewed by me - Risk of complications The pt has a mod risk of morbidity or mortality based on: Need for prescription drug management The pt has a high risk of morbidity or mortality based on: Drug therapy requiring intensive monitoring for toxicity - Departure Departure Disposition: Observation Clinical Impression: Left lower lobe pneumonia Qualifiers: Pneumonia type: due to Klebsiella pneumoniae Qualified Code(s): J15.0 - Pneumonia due to Klebsiella pneumoniae Condition: Fair Critical Care Time: Yes Critical Care Time(excluding separately billable procedures): Critical 30-74 mins Referrals: ADELIA STINSON [Primary Care Provider] - Follow up/PCP as directed Instructions: Pneumonia, Adult (DC)
[2022-06-09 16:57] LABS: ALBUMIN 2.6 g/dL (3.5-5.0); ALKALINE PHOSPHATASE 157 U/L (38-126); AMYLASE 42 U/L (30-110); ANION GAP 17.4 MEQ/L (5-15); BLOOD UREA NITROGEN 7 mg/dL (9-20); CHLORIDE 102 mmol/L (98-107); Calcium 7.3 mg/dL (8.4-10.2); Carbon Dioxide 21 mmol/L (22-30); Creatinine 1 0.59 mg/dL (0.66-1.25); EST GLOMERULAR FILTRATION RATE > 60.0 ML/MIN; Glucose 115 mg/dL (74-106); LIPASE 34 U/L (23-300); MAGNESIUM 1.7 mg/dL (1.6-2.3); Potassium 3.4 mmol/L (3.5-5.1); SGOT/AST 38 U/L (17-59); SGPT/ALT 20 U/L (0-50); SODIUM 137 mmol/L (137-145); Total Protein 6.7 g/dL (6.3-8.2)
[2022-06-09] MEDS ORDERED: ROCEPHIN 1 Gm-D5w 50 ml Bag** 1 G/50 ML IVPB IV STA (16:58)
[2022-06-09] MEDS ORDERED: ROCEPHIN 1 Gm-D5w 50 ml Bag** 1 G/50 ML IVPB IV ONE (17:24)
[2022-06-09 17:54] LABS: INFLUENZA A NEGATIVE (NEGATIVE); INFLUENZA B NEGATIVE (NEGATIVE); RESPIRATORY SYNCTIAL VIRUS NEGATIVE (NEGATIVE); SARS-CoV-2 Xpert Express NEGATIVE (NEGATIVE)
[2022-06-09] MEDS ORDERED: DUONEB 0.5-3 MG/3 ml Neb IH SCH (19:00)
[2022-06-09] MEDS ORDERED: DUONEB 0.5-3 MG/3 ml Neb IH PRN (19:01)
--- NOTE | 2022-06-09 21:39 | XRAY ---
Indication: Short of breath. Comparison: March 05, 2019 AP/lateral chest demonstrates new mild left base infiltrate/atelectasis/effusion. Remaining heart and right lung unremarkable. Bony thorax intact.
[2022-06-09] MEDS ORDERED: solu-MEDROL ONE (22:20)
[2022-06-09] MEDS: solu-MEDROL 60 MG, Sterile H2O 10 ml 2 ML IV SCH ×2 (22:33)
[2022-06-09] MEDS: Coreg 3.125 MG PO SCH (22:33)
[2022-06-09] MEDS: Protonix 40MG Tablet PO SCH (22:33)
[2022-06-09] MEDS: ZOCOR 20MG PO SCH (22:33)
[2022-06-10 02:13] LABS: Hematocrit 36.3 % (42-50); Hemoglobin 11.8 g/dL (12.5-18.0); Mean Cell Volume 103.1 fL (78-100); Mean Corpuscular Hemoglobin 33.5 pg (26-32); Mean Corpuscular Hgb Concent. 32.5 g/dL (32-36); Mean Platelet Volume 9.7 fL (7.5-11.0); Platelet Count 203 x10^3/uL (150-450); Red Blood Count 3.52 x10^6/uL (4.1-5.6); Red Cell Distribution Width 14.4 % (11.5-14.0); White Blood Count 12.5 x10^3/uL (4.0-10.5)
[2022-06-10 02:27] LABS: ALKALINE PHOSPHATASE 124 U/L (38-126); ANION GAP 12.8 MEQ/L (5-15); BLOOD UREA NITROGEN 7 mg/dL (9-20); CHLORIDE 100 mmol/L (98-107); Calcium 6.8 mg/dL (8.4-10.2); Carbon Dioxide 24 mmol/L (22-30); Creatinine 1 0.53 mg/dL (0.66-1.25); EST GLOMERULAR FILTRATION RATE > 60.0 ML/MIN; Glucose 105 mg/dL (74-106); MAGNESIUM 1.6 mg/dL (1.6-2.3); Potassium 3.4 mmol/L (3.5-5.1); SGOT/AST 29 U/L (17-59); SGPT/ALT 17 U/L (0-50); SODIUM 134 mmol/L (137-145); Total Protein 5.3 g/dL (6.3-8.2)
[2022-06-10] MEDS ORDERED: solu-MEDROL ONE (06:09)
[2022-06-10] MEDS: solu-MEDROL 60 MG, Sterile H2O 10 ml 2 ML IV SCH ×6 (06:22→21:30)
[2022-06-10] MEDS ORDERED: PATIENT OWN MEDICATION IH SCH (07:00)
[2022-06-10 08:13] LABS: Appearance Clear (Clear); Bacteria None Seen /HPF (None Seen); Bilirubin Negative (Negative); Blood Negative (Negative); Epithelial Cells None Seen /HPF (None Seen); Glucose, Urine Negative (Negative); Ketones 80 (Negative); Leukocyte Esterase Moderate (Negative); Nitrite Positive (Negative); Protein,Urine Dip 30 (Negative); Specific Gravity 1.025 (1.005-1.030); WBC >100 /HPF (0-5)
[2022-06-10 08:14] LABS: ADD URINE CULTURE? YES (NO)
[2022-06-10] MEDS: ROCEPHIN 1 Gm-D5w 50 ml Bag** 1 G/50 ML IVPB IV SCH (08:54)
[2022-06-10] MEDS: NORVASC 5 MG PO SCH (08:55)
[2022-06-10] MEDS: ENOXAPARIN SODIUM SQ SCH (08:55)
[2022-06-10] MEDS: Coreg 3.125 MG PO SCH ×2 (08:56→21:30)
[2022-06-10] MEDS: Protonix 40MG Tablet PO SCH ×2 (08:56→21:30)
[2022-06-10] MEDS: SYNTHROID 50 MCG PO SCH (08:56)
[2022-06-10] MEDS: Zithromax 500 MG/ 250 ML NaCl Premix 500 MG/250 ML IVPB IV SCH (08:57)
[2022-06-10] MEDS ORDERED: NON-FORMULARY ITEM (Amlodipine Besylate [Amlodipine Besylate] 10 MG Tablet) PO SCH (10:00)
--- NOTE | 2022-06-10 12:59 | PCM.HP ---
History of Present Illness - Chief Complaint Chief Complaint: weakness and shortness of breath History of Present Illness: is a 67 year old male.with significant past medical history of hypertension COPD hypothyroidism has been not feeling well for at least last 1 week. He has been feeling short of breath weak lethargic and not able to eat or drink well for last 1 week. Patient also complains of low-grade fever with mild chills. Patient denies any nausea vomiting diarrhea constipation blood in the urine or stool. Timing/Duration: week(s) (one week) Severity of Dyspnea-Max: mild Severity of Dyspnea-Current: mild Possible Cause: no prior episodes Associated Symptoms: weakness - Review of Systems Constitutional: Weakness, No Fever, No Chills Eyes: No Symptoms Ears, Nose, & Throat: No Symptoms Respiratory: Short Of Breath, No Cough Cardiac: No Chest Pain, No Edema, No Syncope Abdominal/Gastrointestinal: No Abdominal Pain, No Nausea, No Vomiting, No Diarrhea Genitourinary Symptoms: No Dysuria Musculoskeletal: No Back Pain, No Neck Pain Skin: No Rash Neurological: No Dizziness, No Focal Weakness, No Sensory Changes Psychological: No Symptoms Endocrine: No Symptoms Hematologic/Lymphatic: No Symptoms Immunological/Allergic: No Symptoms Medications & Allergies Home Medications: Home Medication List Carvedilol 3.125 mg [Coreg 3.125 MG] 3.125 mg PO BID 10/03/18 [History Confirmed 06/09/22] Omeprazole Magnesium [Prilosec Otc] 20 mg PO BID #60 tablet. 10/07/18 [Rx Confirmed 06/09/22] Levothyroxine Sodium 25 Mcg [Synthroid 25 Mcg] 50 mcg PO DAILY 05/03/22 [History Confirmed 06/09/22] Amlodipine Besylate 10 mg PO DAILY 06/09/22 [History Confirmed 06/09/22] Fluticasone/Umeclidin/Vilanter [Trelegy Ellipta 200-62.5-25] 1 dose IH DAILY 06/09/22 [History Confirmed 06/09/22] Pravastatin Sodium 40 mg PO HS 06/09/22 [History Confirmed 06/09/22] Allergies/Adverse Reactions: Allergies Allergy/AdvReac Type Severity Reaction Status Date / Time codeine AdvReac Mild Nausea Verified 05/03/22 10:28 - Past Medical History Past Medical History: Yes Neurological History: Migraines ENT History: Cataracts Cardiac History: Angina, High Cholesterol, Hypertension Respiratory History: COPD Endocrine Medical History: No Pertinent History Musculoskelatal History: Arthritis GI Medical History: Other History: No Pertinent History Pyscho-Social History: No Pertinent History Male Reproductive Disorders: No Pertinent History Comment: states bharat. cataract surgery,"feel like something is sutck in my upper chest all the time" " sometimes i just get out of breath" - Past Surgical History Past Surgical History: Yes Neuro Surgical History: No Pertinent History Cardiac History: Cardiac Catheterization Respiratory Surgery: No Pertinent History GI Surgical History: Appendectomy Genitourinary Surgical Hx: No Pertinent History Musculskeletal Surgical Hx: No Pertinent History Male Surgical History: No Pertinent History Other Surgical History: bilateral cataract with IOL implant , heart cath " less than a yr ago" " no stent because it was about 60% open for now" - Social History Smoking Status: Former smoker How long have you smoked: 50 yrs Exposure to second hand smoke: Yes Alcohol: Daily Drug Use: none - Physical Exam Vital Signs: Vital Signs - 24 hr Temp Pulse Resp BP Pulse Ox 06/10/22 11:49 98.1 F 91 H 16 84/54 96 06/10/22 07:03 97.9 F 95 H 16 105/63 97 06/10/22 06:55 85 18 97 06/10/22 03:50 97.4 F 97 H 17 113/66 97 06/09/22 23:40 97.8 F 100 H 19 117/70 96 06/09/22 19:52 97.9 F 108 H 16 130/78 96 06/09/22 19:04 108 H 16 96 06/09/22 18:18 97.9 F 115 H 15 130/78 97 06/09/22 17:47 109 H 20 99 06/09/22 17:19 98 06/09/22 17:00 108 H 18 99 06/09/22 16:14 12 98 06/09/22 16:08 97.2 F 122 H 12 105/73 98 General Appearance: no apparent distress, alert Neurologic Exam: alert, oriented x 3, cooperative, normal mood/affect, nml cerebellar function, nml station & gait, sensation nml, No motor deficits Eye Exam: PERRL/EOMI, eyes nml inspection Ears, Nose, Throat Exam: normal ENT inspection, TMs normal, pharynx normal, moist mucous membranes Neck Exam: normal inspection, non-tender, supple, full range of motion Respiratory Exam: diminished breath sounds, crackles/rales, rhonchi, No respiratory distress Cardiovascular Exam: regular rate/rhythm, normal heart sounds, normal peripheral pulses Gastrointestinal/Abdomen Exam: soft, normal bowel sounds, No tenderness, No mass Back Exam: normal inspection, normal range of motion, No CVA tenderness, No vertebral tenderness Extremity Exam: normal inspection, normal range of motion, pelvis stable Skin Exam: normal color, warm, dry, No rash Lymphatic Exam: No adenopathy Results - Labs Lab/Micro Results: Lab Results-Last 24 Hours 06/09/22 06/09/22 06/09/22 Range/Units 16:37 16:37 16:37 WBC 13.9 H (4.0-10.5) x10^3/uL RBC 4.11 (4.1-5.6) x10^6/uL Hgb 13.6 (12.5-18.0) g/dL Hct 42.6 (42-50) % MCV 103.6 H (78-100) fL MCH 33.1 H (26-32) pg MCHC 31.9 L (32-36) g/dL RDW 14.4 H (11.5-14.0) % Plt Count 242 (150-450) x10^3/uL MPV 9.8 (7.5-11.0) fL Gran % 81.1 H (36.0-66.0) % Immature Gran % (Auto) 0.4 (0.00-0.4) % Nucleat RBC Rel Count 0.0 (0.00-0.1) % Eos # (Auto) 0.01 (0-0.5) x10^3/uL Immature Gran # (Auto) 0.05 H (0.00-0.03) x10^3u/L Absolute Lymphs (auto) 1.27 (1.0-4.6) x10^3/uL Absolute Monos (auto) 1.22 (0.0-1.3) x10^3/uL Absolute Nucleated RBC 0.00 (0.00-0.01) x10^3u/L Lymphocytes % 9.2 L (24.0-44.0) % Monocytes % 8.8 (0.0-12.0) % Eosinophils % 0.1 (0.00-5.0) % Basophils % 0.4 (0.0-0.4) % Absolute Granulocytes 11.26 H (1.4-6.9) x10^3/uL Basophils # 0.05 (0-0.4) x10^3/uL Sodium 137 (137-145) mmol/L Potassium 3.4 L (3.5-5.1) mmol/L Chloride 102 (98-107) mmol/L Carbon Dioxide 21 L (22-30) mmol/L Anion Gap 17.4 H (5-15) MEQ/L BUN 7 L (9-20) mg/dL Creatinine 0.59 L (0.66-1.25) mg/dL Estimated GFR > 60.0 ML/MIN Glucose 115 H (74-106) mg/dL Calcium 7.3 L (8.4-10.2) mg/dL Magnesium 1.7 (1.6-2.3) mg/dL Total Bilirubin 0.80 (0.2-1.3) mg/dL AST 38 (17-59) U/L ALT 20 (0-50) U/L Alkaline Phosphatase 157 H (38-126) U/L Ammonia (9-30) umol/L Troponin I < 0.012 (0.000-0.034) ng/mL NT-Pro-B Natriuret Pep (<300) pg/mL Serum Total Protein 6.7 (6.3-8.2) g/dL Albumin 2.6 L (3.5-5.0) g/dL Amylase 42 (30-110) U/L Lipase 34 (23-300) U/L Urine Color (Yellow) Urine Appearance (Clear) Urine pH (4.6-8.0) Ur Specific [place] (1.005-1.030) Urine Protein (Negative) Urine Glucose (UA) (Negative) mg/dL Urine Ketones (Negative) Urine Blood (Negative) Urine Nitrite (Negative) Urine Bilirubin (Negative) Urine Urobilinogen (0.2) mg/dL Ur Leukocyte Esterase (Negative) U Hyaline Cast (Auto) (0-2) /LPF Urine Microscopic RBC (0-5) /HPF Urine Microscopic WBC (0-5) /HPF Ur Epithelial Cells (None Seen) /HPF Urine Bacteria (None Seen) /HPF Urine Culture Reflexed (NO) Influenza Type A Ag (NEGATIVE) Influenza Type B Ag (NEGATIVE) RSV (PCR) (NEGATIVE) SARS-CoV-2 (PCR) (NEGATIVE) 06/09/22 06/09/22 06/09/22 Range/Units 16:37 16:37 16:47 WBC (4.0-10.5) x10^3/uL RBC (4.1-5.6) x10^6/uL Hgb (12.5-18.0) g/dL Hct (42-50) % MCV (78-100) fL MCH (26-32) pg MCHC (32-36) g/dL RDW (11.5-14.0) % Plt Count (150-450) x10^3/uL MPV (7.5-11.0) fL Gran % (36.0-66.0) % Immature Gran % (Auto) (0.00-0.4) % Nucleat RBC Rel Count (0.00-0.1) % Eos # (Auto) (0-0.5) x10^3/uL Immature Gran # (Auto) (0.00-0.03) x10^3u/L Absolute Lymphs (auto) (1.0-4.6) x10^3/uL Absolute Monos (auto) (0.0-1.3) x10^3/uL Absolute Nucleated RBC (0.00-0.01) x10^3u/L Lymphocytes % (24.0-44.0) % Monocytes % (0.0-12.0) % Eosinophils % (0.00-5.0) % Basophils % (0.0-0.4) % Absolute Granulocytes (1.4-6.9) x10^3/uL Basophils # (0-0.4) x10^3/uL Sodium (137-145) mmol/L Potassium (3.5-5.1) mmol/L Chloride (98-107) mmol/L Carbon Dioxide (22-30) mmol/L Anion Gap (5-15) MEQ/L BUN (9-20) mg/dL Creatinine (0.66-1.25) mg/dL Estimated GFR ML/MIN Glucose (74-106) mg/dL Calcium (8.4-10.2) mg/dL Magnesium (1.6-2.3) mg/dL Total Bilirubin (0.2-1.3) mg/dL AST (17-59) U/L ALT (0-50) U/L Alkaline Phosphatase (38-126) U/L Ammonia 9 (9-30) umol/L Troponin I (0.000-0.034) ng/mL NT-Pro-B Natriuret Pep 398 (<300) pg/mL Serum Total Protein (6.3-8.2) g/dL Albumin (3.5-5.0) g/dL Amylase (30-110) U/L Lipase (23-300) U/L Urine Color (Yellow) Urine Appearance (Clear) Urine pH (4.6-8.0) Ur Specific [place] (1.005-1.030) Urine Protein (Negative) Urine Glucose (UA) (Negative) mg/dL Urine Ketones (Negative) Urine Blood (Negative) Urine Nitrite (Negative) Urine Bilirubin (Negative) Urine Urobilinogen (0.2) mg/dL Ur Leukocyte Esterase (Negative) U Hyaline Cast (Auto) (0-2) /LPF Urine Microscopic RBC (0-5) /HPF Urine Microscopic WBC (0-5) /HPF Ur Epithelial Cells (None Seen) /HPF Urine Bacteria (None Seen) /HPF Urine Culture Reflexed (NO) Influenza Type A Ag NEGATIVE (NEGATIVE) Influenza Type B Ag NEGATIVE (NEGATIVE) RSV (PCR) NEGATIVE (NEGATIVE) SARS-CoV-2 (PCR) NEGATIVE (NEGATIVE) 06/09/22 06/10/22 06/10/22 Range/Units 20:32 02:10 02:10 WBC 12.5 H (4.0-10.5) x10^3/uL RBC 3.52 L (4.1-5.6) x10^6/uL Hgb 11.8 L (12.5-18.0) g/dL Hct 36.3 L (42-50) % MCV 103.1 H (78-100) fL MCH 33.5 H (26-32) pg MCHC 32.5 (32-36) g/dL RDW 14.4 H (11.5-14.0) % Plt Count 203 (150-450) x10^3/uL MPV 9.7 (7.5-11.0) fL Gran % (36.0-66.0) % Immature Gran % (Auto) (0.00-0.4) % Nucleat RBC Rel Count (0.00-0.1) % Eos # (Auto) (0-0.5) x10^3/uL Immature Gran # (Auto) (0.00-0.03) x10^3u/L Absolute Lymphs (auto) (1.0-4.6) x10^3/uL Absolute Monos (auto) (0.0-1.3) x10^3/uL Absolute Nucleated RBC (0.00-0.01) x10^3u/L Lymphocytes % (24.0-44.0) % Monocytes % (0.0-12.0) % Eosinophils % (0.00-5.0) % Basophils % (0.0-0.4) % Absolute Granulocytes (1.4-6.9) x10^3/uL Basophils # (0-0.4) x10^3/uL Sodium (137-145) mmol/L Potassium (3.5-5.1) mmol/L Chloride (98-107) mmol/L Carbon Dioxide (22-30) mmol/L Anion Gap (5-15) MEQ/L BUN (9-20) mg/dL Creatinine (0.66-1.25) mg/dL Estimated GFR ML/MIN Glucose (74-106) mg/dL Calcium (8.4-10.2) mg/dL Magnesium (1.6-2.3) mg/dL Total Bilirubin (0.2-1.3) mg/dL AST (17-59) U/L ALT (0-50) U/L Alkaline Phosphatase (38-126) U/L Ammonia (9-30) umol/L Troponin I < 0.012 < 0.012 (0.000-0.034) ng/mL NT-Pro-B Natriuret Pep (<300) pg/mL Serum Total Protein (6.3-8.2) g/dL Albumin (3.5-5.0) g/dL Amylase (30-110) U/L Lipase (23-300) U/L Urine Color (Yellow) Urine Appearance (Clear) Urine pH (4.6-8.0) Ur Specific [place] (1.005-1.030) Urine Protein (Negative) Urine Glucose (UA) (Negative) mg/dL Urine Ketones (Negative) Urine Blood (Negative) Urine Nitrite (Negative) Urine Bilirubin (Negative) Urine Urobilinogen (0.2) mg/dL Ur Leukocyte Esterase (Negative) U Hyaline Cast (Auto) (0-2) /LPF Urine Microscopic RBC (0-5) /HPF Urine Microscopic WBC (0-5) /HPF Ur Epithelial Cells (None Seen) /HPF Urine Bacteria (None Seen) /HPF Urine Culture Reflexed (NO) Influenza Type A Ag (NEGATIVE) Influenza Type B Ag (NEGATIVE) RSV (PCR) (NEGATIVE) SARS-CoV-2 (PCR) (NEGATIVE) 06/10/22 06/10/22 Range/Units 02:10 06:15 WBC (4.0-10.5) x10^3/uL RBC (4.1-5.6) x10^6/uL Hgb (12.5-18.0) g/dL Hct (42-50) % MCV (78-100) fL MCH (26-32) pg MCHC (32-36) g/dL RDW (11.5-14.0) % Plt Count (150-450) x10^3/uL MPV (7.5-11.0) fL Gran % (36.0-66.0) % Immature Gran % (Auto) (0.00-0.4) % Nucleat RBC Rel Count (0.00-0.1) % Eos # (Auto) (0-0.5) x10^3/uL Immature Gran # (Auto) (0.00-0.03) x10^3u/L Absolute Lymphs (auto) (1.0-4.6) x10^3/uL Absolute Monos (auto) (0.0-1.3) x10^3/uL Absolute Nucleated RBC (0.00-0.01) x10^3u/L Lymphocytes % (24.0-44.0) % Monocytes % (0.0-12.0) % Eosinophils % (0.00-5.0) % Basophils % (0.0-0.4) % Absolute Granulocytes (1.4-6.9) x10^3/uL Basophils # (0-0.4) x10^3/uL Sodium 134 L (137-145) mmol/L Potassium 3.4 L (3.5-5.1) mmol/L Chloride 100 (98-107) mmol/L Carbon Dioxide 24 (22-30) mmol/L Anion Gap 12.8 (5-15) MEQ/L BUN 7 L (9-20) mg/dL Creatinine 0.53 L (0.66-1.25) mg/dL Estimated GFR > 60.0 ML/MIN Glucose 105 (74-106) mg/dL Calcium 6.8 L (8.4-10.2) mg/dL Magnesium 1.6 (1.6-2.3) mg/dL Total Bilirubin 0.50 (0.2-1.3) mg/dL AST 29 (17-59) U/L ALT 17 (0-50) U/L Alkaline Phosphatase 124 (38-126) U/L Ammonia (9-30) umol/L Troponin I (0.000-0.034) ng/mL NT-Pro-B Natriuret Pep (<300) pg/mL Serum Total Protein 5.3 L (6.3-8.2) g/dL Albumin 2.0 L (3.5-5.0) g/dL Amylase (30-110) U/L Lipase (23-300) U/L Urine Color Dark Yellow (Yellow) Urine Appearance Clear (Clear) Urine pH 6.0 (4.6-8.0) Ur Specific [place] 1.025 (1.005-1.030) Urine Protein 30 (Negative) Urine Glucose (UA) Negative (Negative) mg/dL Urine Ketones 80 A (Negative) Urine Blood Negative (Negative) Urine Nitrite Positive A (Negative) Urine Bilirubin Negative (Negative) Urine Urobilinogen 1.0 A (0.2) mg/dL Ur Leukocyte Esterase Moderate A (Negative) U Hyaline Cast (Auto) 11-25 A (0-2) /LPF Urine Microscopic RBC 3-5 (0-5) /HPF Urine Microscopic WBC >100 A (0-5) /HPF Ur Epithelial Cells None Seen (None Seen) /HPF Urine Bacteria None Seen (None Seen) /HPF Urine Culture Reflexed YES (NO) Influenza Type A Ag (NEGATIVE) Influenza Type B Ag (NEGATIVE) RSV (PCR) (NEGATIVE) SARS-CoV-2 (PCR) (NEGATIVE) - Radiology Impressions Radiology Exams & Impressions: Radiology Procedures Category Date Time Status CHEST 2 VIEWS (PA AND LAT) Stat Exams 06/09/22 16:05 Completed RAD/CHEST 2 VIEWS (PA AND LAT) Indication: Short of breath. Comparison: March 05, 2019 AP/lateral chest demonstrates new mild left base infiltrate/atelectasis/effusion. Remaining heart and right lung unremarkable. Bony thorax intact. - Other Procedures and Tests Respiratory Therapy 06/09/22 19:00 Incentive Spirometry UD Respiratory Therapy Assessment DAILY 06/10/22 07:00 Respiratory MDI QAM Assessment/Plan (1) Left lower lobe pneumonia Current Visit: Yes Status: Acute Qualifiers: Pneumonia type: due to Klebsiella pneumoniae Qualified Code(s): J15.0 - Pneumonia due to Klebsiella pneumoniae Assessment & Plan: Chief Complaint Diagnosis left lower lobe pneumonia Allergies Allergy/AdvReac Type Severity Reaction Status Date / Time codeine AdvReac Mild Nausea Verified 05/03/22 10:28 Vital Signs (Last 24 hours) Temp Pulse Resp BP Pulse Ox 06/10/22 11:49 98.1 F 91 H 16 84/54 96 06/10/22 07:03 97.9 F 95 H 16 105/63 97 06/10/22 06:55 85 18 97 06/10/22 03:50 97.4 F 97 H 17 113/66 97 06/09/22 23:40 97.8 F 100 H 19 117/70 96 06/09/22 19:52 97.9 F 108 H 16 130/78 96 06/09/22 19:04 108 H 16 96 06/09/22 18:18 97.9 F 115 H 15 130/78 97 06/09/22 17:47 109 H 20 99 06/09/22 17:19 98 06/09/22 17:00 108 H 18 99 06/09/22 16:14 12 98 06/09/22 16:08 97.2 F 122 H 12 105/73 98 Home Medications Medication Instructions Recorded Confirmed Last Taken Type Amlodipine Besylate 10 mg PO DAILY 06/09/22 06/09/22 06/09/22 History Fluticasone/Umeclidin/Vilanter 1 dose IH DAILY 06/09/22 06/09/22 06/09/22 History [Treleusha Ellipta 200-62.5-25] Pravastatin Sodium 40 mg PO HS 06/09/22 06/09/22 06/08/22 History Current Medications Generic Name Dose Route Start Last Admin Trade Name Freq PRN Reason Stop Dose Admin Albuterol/Ipratropium 3 ml 06/09/22 19:01 Ipratropium/Albuterol Sulfate 3 Ml Ampul.Neb IH 07/09/22 19:00 Q4HPRN PRN SHORTNESS OF BREATH/WHEEZING Amlodipine Besylate 10 mg 06/10/22 10:00 06/10/22 08:55 Amlodipine Besylate 5 Mg Tablet PO 07/10/22 09:59 10 mg DAILY JOE Administration Carvedilol 3.125 mg 06/09/22 22:00 06/10/22 08:56 Carvedilol 3.125 Mg Tablet PO 07/09/22 21:59 3.125 mg BID JOE Administration Methylprednisolone Sodium 0 mg 06/09/22 22:00 06/10/22 06:22 Succinate 60 mg/ Sterile Water IV 07/09/22 21:59 60 mg 2 ml Q8HT JOE Administration Enoxaparin Sodium 40 mg 06/10/22 10:00 06/10/22 08:55 Enoxaparin Sodium 40 Mg/0.4 Ml Syringe SQ 07/10/22 09:59 40 mg DAILY JOE Administration Sodium Chloride 1,000 mls @ 50 mls/hr 06/09/22 18:08 Sodium Chloride 0.9% 1000 Ml IV 07/09/22 18:07 .Q20H JOE Ceftriaxone Sodium/Dextrose 1 g in 50 mls @ 100 mls/hr 06/10/22 10:00 06/10/22 08:54 Rocephin 1 Gm-D5w 50 Ml Bag IV 06/13/22 09:59 100 mls/hr Q24H10 JOE Administration Azithromycin 500 mg in 250 mls @ 250 mls/hr 06/10/22 10:00 06/10/22 08:57 Zithromax 500 Mg/ 250 Ml Nacl Premix IV 07/10/22 09:59 250 mls/hr Q24H10 JOE Administration Levothyroxine Sodium 50 mcg 06/10/22 10:00 06/10/22 08:56 Levothyroxine Sodium 50 Mcg Tablet PO 07/10/22 09:59 50 mcg DAILY JOE Administration Pantoprazole Sodium 40 mg 06/09/22 22:00 06/10/22 08:56 Protonix (Pantoprazole) 40 Mg Tablet PO 07/09/22 21:59 40 mg BID JOE Administration Trelegy Ellipta 1 each 06/11/22 07:00 Inhaler 07/10/22 06:59 0700 JOE Simvastatin 40 mg 06/09/22 22:00 06/09/22 22:33 Simvastatin 20 Mg Tablet PO 07/09/22 21:59 40 mg HS JOE Administration Discontinued Medications Generic Name Dose Route Start Last Admin Trade Name Ricoq PRN Reason Stop Dose Admin Sodium Chloride 1,000 mls @ 999 mls/hr 06/09/22 16:04 06/09/22 17:25 Sodium Chloride 0.9% 1000 Ml IV 06/09/22 17:04 Infused .Q1H1M STA Infusion Sodium Chloride Confirm 06/09/22 16:16 Sodium Chloride 0.9% 1000 Ml Administered 06/09/22 16:17 Dose 1,000 mls @ ud .ROUTE .STK-MED ONE Ceftriaxone Sodium/Dextrose 1 g in 50 mls @ 100 mls/hr 06/09/22 16:58 06/09/22 17:55 Rocephin 1 Gm-D5w 50 Ml Bag IV 06/09/22 17:27 Infused STAT STA Infusion Ceftriaxone Sodium/Dextrose Confirm 06/09/22 17:24 Rocephin 1 Gm-D5w 50 Ml Bag Administered 06/09/22 17:25 Dose 1 g in 50 mls @ ud IV .STK-MED ONE Methylprednisolone Sodium Succinate Confirm 06/09/22 22:20 Methylprednis Sod Succ 125 Mg/2 Ml Vial Administered 06/09/22 22:21 Dose 125 mg .ROUTE .STK-MED ONE Methylprednisolone Sodium Succinate Confirm 06/10/22 06:09 Methylprednis Sod Succ 125 Mg/2 Ml Vial Administered 06/10/22 06:10 Dose 125 mg .ROUTE .STK-MED ONE Patient Own Medication 1 each 06/10/22 07:00 06/10/22 06:55 Patient Own Med Misc 05/16/23 06:59 1 each QAM JOE Administration Intake & Output (Last 24 hours) 06/08/22 06/09/22 06/10/22 06/11/22 11:59 11:59 11:59 11:59 Intake Total 1172 Output Total 250 Balance 922 Weight 57.8 kg Microbiology Results (Last 24 hours) 06/10/22 06:15 Urine, Void Urine Culture - Pending Laboratory Results (Last 24 hours) 06/10/22 06/10/22 06/10/22 06:15 02:10 02:10 WBC 12.5 H RBC 3.52 L Hgb 11.8 L Hct 36.3 L MCV 103.1 H MCH 33.5 H MCHC 32.5 RDW 14.4 H Plt Count 203 MPV 9.7 Gran % Immature Gran % (Auto) Nucleat RBC Rel Count Eos # (Auto) Immature Gran # (Auto) Absolute Lymphs (auto) Absolute Monos (auto) Absolute Nucleated RBC Lymphocytes % Monocytes % Eosinophils % Basophils % Absolute Granulocytes Basophils # Sodium 134 L Potassium 3.4 L Chloride 100 Carbon Dioxide 24 Anion Gap 12.8 BUN 7 L Creatinine 0.53 L Estimated GFR > 60.0 Glucose 105 Calcium 6.8 L Magnesium 1.6 Total Bilirubin 0.50 AST 29 ALT 17 Alkaline Phosphatase 124 Ammonia Troponin I NT-Pro-B Natriuret Pep Serum Total Protein 5.3 L Albumin 2.0 L Amylase Lipase Urine Color Dark Yellow Urine Appearance Clear Urine pH 6.0 Ur Specific [place] 1.025 Urine Protein 30 Urine Glucose (UA) Negative Urine Ketones 80 A Urine Blood Negative Urine Nitrite Positive A Urine Bilirubin Negative Urine Urobilinogen 1.0 A Ur Leukocyte Esterase Moderate A U Hyaline Cast (Auto) 11-25 A Urine Microscopic RBC 3-5 Urine Microscopic WBC >100 A Ur Epithelial Cells None Seen Urine Bacteria None Seen Urine Culture Reflexed YES Influenza Type A Ag Influenza Type B Ag RSV (PCR) SARS-CoV-2 (PCR) 06/10/22 06/09/22 06/09/22 02:10 20:32 16:47 WBC RBC Hgb Hct MCV MCH MCHC RDW Plt Count MPV Gran % Immature Gran % (Auto) Nucleat RBC Rel Count Eos # (Auto) Immature Gran # (Auto) Absolute Lymphs (auto) Absolute Monos (auto) Absolute Nucleated RBC Lymphocytes % Monocytes % Eosinophils % Basophils % Absolute Granulocytes Basophils # Sodium Potassium Chloride Carbon Dioxide Anion Gap BUN Creatinine Estimated GFR Glucose Calcium Magnesium Total Bilirubin AST ALT Alkaline Phosphatase Ammonia Troponin I < 0.012 < 0.012 NT-Pro-B Natriuret Pep Serum Total Protein Albumin Amylase Lipase Urine Color Urine Appearance Urine pH Ur Specific [place] Urine Protein Urine Glucose (UA) Urine Ketones Urine Blood Urine Nitrite Urine Bilirubin Urine Urobilinogen Ur Leukocyte Esterase U Hyaline Cast (Auto) Urine Microscopic RBC Urine Microscopic WBC Ur Epithelial Cells Urine Bacteria Urine Culture Reflexed Influenza Type A Ag NEGATIVE Influenza Type B Ag NEGATIVE RSV (PCR) NEGATIVE SARS-CoV-2 (PCR) NEGATIVE 06/09/22 06/09/22 06/09/22 16:37 16:37 16:37 WBC RBC Hgb Hct MCV MCH MCHC RDW Plt Count MPV Gran % Immature Gran % (Auto) Nucleat RBC Rel Count Eos # (Auto) Immature Gran # (Auto) Absolute Lymphs (auto) Absolute Monos (auto) Absolute Nucleated RBC Lymphocytes % Monocytes % Eosinophils % Basophils % Absolute Granulocytes Basophils # Sodium Potassium Chloride Carbon Dioxide Anion Gap BUN Creatinine Estimated GFR Glucose Calcium Magnesium Total Bilirubin AST ALT Alkaline Phosphatase Ammonia 9 Troponin I < 0.012 NT-Pro-B Natriuret Pep 398 Serum Total Protein Albumin Amylase Lipase Urine Color Urine Appearance Urine pH Ur Specific [place] Urine Protein Urine Glucose (UA) Urine Ketones Urine Blood Urine Nitrite Urine Bilirubin Urine Urobilinogen Ur Leukocyte Esterase U Hyaline Cast (Auto) Urine Microscopic RBC Urine Microscopic WBC Ur Epithelial Cells Urine Bacteria Urine Culture Reflexed Influenza Type A Ag Influenza Type B Ag RSV (PCR) SARS-CoV-2 (PCR) 06/09/22 06/09/22 16:37 16:37 WBC 13.9 H RBC 4.11 Hgb 13.6 Hct 42.6 MCV 103.6 H MCH 33.1 H MCHC 31.9 L RDW 14.4 H Plt Count 242 MPV 9.8 Gran % 81.1 H Immature Gran % (Auto) 0.4 Nucleat RBC Rel Count 0.0 Eos # (Auto) 0.01 Immature Gran # (Auto) 0.05 H Absolute Lymphs (auto) 1.27 Absolute Monos (auto) 1.22 Absolute Nucleated RBC 0.00 Lymphocytes % 9.2 L Monocytes % 8.8 Eosinophils % 0.1 Basophils % 0.4 Absolute Granulocytes 11.26 H Basophils # 0.05 Sodium 137 Potassium 3.4 L Chloride 102 Carbon Dioxide 21 L Anion Gap 17.4 H BUN 7 L Creatinine 0.59 L Estimated GFR > 60.0 Glucose 115 H Calcium 7.3 L Magnesium 1.7 Total Bilirubin 0.80 AST 38 ALT 20 Alkaline Phosphatase 157 H Ammonia Troponin I NT-Pro-B Natriuret Pep Serum Total Protein 6.7 Albumin 2.6 L Amylase 42 Lipase 34 Urine Color Urine Appearance Urine pH Ur Specific [place] Urine Protein Urine Glucose (UA) Urine Ketones Urine Blood Urine Nitrite Urine Bilirubin Urine Urobilinogen Ur Leukocyte Esterase U Hyaline Cast (Auto) Urine Microscopic RBC Urine Microscopic WBC Ur Epithelial Cells Urine Bacteria Urine Culture Reflexed Influenza Type A Ag Influenza Type B Ag RSV (PCR) SARS-CoV-2 (PCR) Orders (Last 24 hours) Category Date Time Status Up Ad Francheska ROUTINE Activity 06/09/22 18:08 Active Generator Technician STAT Care 06/09/22 16:06 Completed Code Status Order ROUTINE Care 06/09/22 18:08 Active EKG-ER Only STAT Care 06/09/22 16:04 Completed IV Care Q6H Care 06/09/22 18:08 Active IV Insertion STAT Care 06/09/22 16:11 Completed Oxygen-ED Only Nasal Cannula 2 lpm Care 06/09/22 16:[address] in Observation ROUTINE Care 06/09/22 18:08 Active Rafy Kelley ROUTINE Care 06/09/22 18:08 Active Weight,Daily 0600 Care 06/09/22 18:08 Active Heart-Healthy Diet Diet 06/09/22 Dinner Active CHEST 2 VIEWS (PA AND LAT) Stat Exams 06/09/22 16:05 Completed AMMONIA Stat Lab 06/09/22 16:37 Completed AMYLASE Stat Lab 06/09/22 16:37 Completed CBC AM.LAB Lab 06/10/22 02:10 Completed CBC W DIFF Stat Lab 06/09/22 16:37 Completed CMP AM.LAB Lab 06/10/22 02:10 Completed CMP Stat Lab 06/09/22 16:37 Completed COVID/FLU/RSV Panel Stat Lab 06/09/22 16:47 Completed CULTURE,URINE Stat Lab 06/10/22 06:15 Received LIPASE Stat Lab 06/09/22 16:37 Completed MAGNESIUM AM.LAB Lab 06/10/22 02:10 Completed MAGNESIUM Stat Lab 06/09/22 16:37 Completed NT PRO BNPII Stat Lab 06/09/22 16:37 Completed TROPONIN Q4H Lab 06/09/22 16:37 Completed TROPONIN Q4H Lab 06/09/22 20:32 Completed TROPONIN Q4H Lab 06/10/22 02:10 Completed UA W/RFX UR CULTURE Stat Lab 06/10/22 06:15 Completed Albuterol/Ipratropium 3ml Neb* [DUONEB 0.5-3 MG/3 ml Med 06/09/22 19:01 Active Neb] 3 ml IH Q4HPRN PRN Amlodipine Besylate 5 mg [Norvasc 5 mg] Med 06/10/22 10:00 Active 10 mg PO DAILY Azithromycin 500 mg/250 ml [Zithromax 500 MG/ 250 ML Med 06/10/22 10:00 Active NaCl Premix] 500 mg in 250 ml IV Q24H10 Carvedilol 3.125 mg [Coreg 3.125 MG] Med 06/09/22 22:00 Active 3.125 mg PO BID Ceftriaxone 1 GM/50 ML PREMIX* [ROCEPHIN 1 Gm-D5w 50 ml Med 06/10/22 10:00 Ac tive Bag] 1 g in 50 ml IV Q24H10 Ceftriaxone 1 GM/50 ML PREMIX* [ROCEPHIN 1 Gm-D5w 50 ml Med 06/09/22 16:58 Discontinued Bag] 1 g in 50 ml IV STAT Ceftriaxone 1 GM/50 ML PREMIX* [ROCEPHIN 1 Gm-D5w 50 ml Med 06/09/22 17:24 Discontinued Bag] 1 g in 50 ml IV UD Enoxaparin Sodium [Enoxaparin Sodium] Med 06/10/22 10:00 Active 40 mg SQ DAILY Levothyroxine Sodium 50 Mcg [Synthroid 50 Mcg] Med 06/10/22 10:00 Active 50 mcg PO DAILY Methylprednis Sod Succ 125 mg* [solu-MEDROL] Med 06/09/22 22:20 Discontinued 125 mg .ROUTE .STK-MED ONE Methylprednis Sod Succ 125 mg* [solu-MEDROL] Med 06/10/22 06:09 Discontinued 125 mg .ROUTE .STK-MED ONE Methylprednis Sod Succ 125 mg* [solu-MEDROL] 60 mg Med 06/09/22 22:00 Active Water For Injection,Sterile [Sterile H2O 10 ml] 2 ml IV Q8HT NaCl 0.9% 1000 ml [Sodium Chloride 0.9% 1000 ML] 1,000 Med 06/09/22 16:16 Discontinued ml .ROUTE UD NaCl 0.9% 1000 ml [Sodium Chloride 0.9% 1000 ML] 1,000 Med 06/09/22 18:08 Active ml IV 50 mls/hr NaCl 0.9% 1000 ml [Sodium Chloride 0.9% 1000 ML] 1,000 Med 06/09/22 16:04 Discontinued ml IV 999 mls/hr PANTOPRAZOLE 40 mg Tablet [Protonix 40MG Tablet] Med 06/09/22 22:00 Active 40 mg PO BID Patient Own Med [Patient Own Medication] Med 06/11/22 07:00 Active 1 each IH 0700 Patient Own Med [Patient Own Medication] Med 06/10/22 07:00 Discontinued 1 each IH QAM Simvastatin 20Mg [Zocor 20Mg] Med 06/09/22 22:00 Active 40 mg PO HS Incentive Spirometry UD RT 06/09/22 19:00 Active Pulse Oximetry .spot check RT 06/09/22 19:00 Active Respiratory MDI QAM RT 06/10/22 07:00 Active Respiratory Therapy Assessment DAILY RT 06/09/22 19:00 Active Code(s): J18.9 - PNEUMONIA, UNSPECIFIED ORGANISM
[2022-06-10] MEDS: Sodium Chloride 0.9% 1000 ML 1,000 ML IV SCH ×2 (14:01→20:22)
[2022-06-10] MEDS: Mylicon 80MG PO PRN (16:33)
[2022-06-10] MEDS: ZOCOR 20MG PO SCH (21:30)
[2022-06-11] MEDS: solu-MEDROL 60 MG, Sterile H2O 10 ml 2 ML IV SCH ×6 (05:21→21:22)
[2022-06-11] MEDS: Sodium Chloride 0.9% 1000 ML 1,000 ML IV SCH ×2 (06:29→23:15)
[2022-06-11] MEDS: PATIENT OWN MEDICATION IH SCH ×2 (06:29→11:04)
[2022-06-11 07:06] LABS: Absolute Neutrophil Ct (ANC) 18.25 x10^3/uL (1.4-6.9); BASOPHIL % 0.1 % (0.0-0.4); Basophil (Absolute #) 0.03 x10^3/uL (0-0.4); Eosinophil (Absolute #) 0.01 x10^3/uL (0-0.5); Hematocrit 35.1 % (42-50); Hemoglobin 11.7 g/dL (12.5-18.0); IMMATURE GRAN # 0.14 x10^3u/L (0.00-0.03); IMMATURE GRAN % 0.7 % (0.00-0.4); Lymphocyte (Absolute #) 1.07 x10^3/uL (1.0-4.6); Lymphocytes % 5.3 % (24.0-44.0); Mean Corpuscular Hgb Concent. 33.3 g/dL (32-36); Mean Platelet Volume 10.4 fL (7.5-11.0); Monocyte (Absolute #) 0.68 x10^3/uL (0.0-1.3); Monocytes % 3.4 % (0.0-12.0); Neutrophil % 90.5 % (36.0-66.0); Platelet Count 261 x10^3/uL (150-450); Red Blood Count 3.44 x10^6/uL (4.1-5.6); Red Cell Distribution Width 14.2 % (11.5-14.0); White Blood Count 20.2 x10^3/uL (4.0-10.5)
[2022-06-11 07:34] LABS: BLOOD UREA NITROGEN 8 mg/dL (9-20); CHLORIDE 104 mmol/L (98-107); Carbon Dioxide 23 mmol/L (22-30); Creatinine 1 0.44 mg/dL (0.66-1.25); EST GLOMERULAR FILTRATION RATE > 60.0 ML/MIN; Glucose 142 mg/dL (74-106); Potassium 3.7 mmol/L (3.5-5.1); SODIUM 134 mmol/L (137-145)
--- NOTE | 2022-06-11 09:08 | PCM.NOTE ---
Date and Time: 06/11/22901 Subjective Assessment: Pt feels better than at admission, but still feeling quite weak. Unable to get up to bedside commode without assistance. He does mention that he's had air in his urine for the past 2 months. Abdominal distension for about 2 mo as well, off and on, with intermittent abd pain. - Review of Systems Constitutional: No Fever Respiratory: Cough (nonprod) Objective Exam General Appearance: no apparent distress, thin Neurologic Exam: alert, oriented x 3, cooperative Skin Exam: normal color, warm, dry, No rash Eye Exam: eyes nml inspection Ears, Nose, Throat Exam: moist mucous membranes Neck Exam: normal inspection Respiratory Exam: diminished breath sounds (fair air exchange), No crackles/rales, No rhonchi, No wheezing Cardiovascular Exam: regular rate/rhythm, normal heart sounds, No murmur Gastrointestinal/Abdomen Exam: soft, normal bowel sounds, distention, No tenderness, No mass, No guarding, No rebound Extremity Exam: normal inspection, No pedal edema, No swelling Back Exam: normal inspection, No rash OBJECTIVE DATA Vital Signs: Vital Signs - 24 hr Temp Pulse Resp BP Pulse Ox 06/11/22 08:00 98.9 F 74 19 111/72 98 06/11/22 07:00 68 18 93 L 06/11/22 04:00 97.1 F 77 16 102/64 94 L 06/11/22 00:00 97.1 F 78 16 104/66 93 L 06/10/22 20:00 97.3 F 81 18 111/66 94 L 06/10/22 19:15 79 16 95 06/10/22 15:54 98.1 F 104 H 16 114/70 97 06/10/22 11:49 98.1 F 91 H 16 84/54 96 Pain Assessment - Last Documented Pain Intensity 0 Intake and Output: Intake & Output 06/08/22 06/09/22 06/10/22 06/11/22 11:59 11:59 11:59 11:59 Intake Total 1172 3225 Output Total 250 600 Balance 922 7435 Weight 57.8 kg 57.4 kg Lab Results: Lab Results-Last 24 Hours 06/11/22 06/11/22 Range/Units 06:29 06:29 WBC 20.2 H (4.0-10.5) x10^3/uL RBC 3.44 L (4.1-5.6) x10^6/uL Hgb 11.7 L (12.5-18.0) g/dL Hct 35.1 L (42-50) % MCV 102.0 H (78-100) fL MCH 34.0 H (26-32) pg MCHC 33.3 (32-36) g/dL RDW 14.2 H (11.5-14.0) % Plt Count 261 (150-450) x10^3/uL MPV 10.4 (7.5-11.0) fL Gran % 90.5 H (36.0-66.0) % Immature Gran % (Auto) 0.7 H (0.00-0.4) % Nucleat RBC Rel Count 0.0 (0.00-0.1) % Eos # (Auto) 0.01 (0-0.5) x10^3/uL Immature Gran # (Auto) 0.14 H (0.00-0.03) x10^3u/L Absolute Lymphs (auto) 1.07 (1.0-4.6) x10^3/uL Absolute Monos (auto) 0.68 (0.0-1.3) x10^3/uL Absolute Nucleated RBC 0.00 (0.00-0.01) x10^3u/L Lymphocytes % 5.3 L (24.0-44.0) % Monocytes % 3.4 (0.0-12.0) % Eosinophils % 0.0 (0.00-5.0) % Basophils % 0.1 (0.0-0.4) % Absolute Granulocytes 18.25 H (1.4-6.9) x10^3/uL Basophils # 0.03 (0-0.4) x10^3/uL Sodium 134 L (137-145) mmol/L Potassium 3.7 (3.5-5.1) mmol/L Chloride 104 (98-107) mmol/L Carbon Dioxide 23 (22-30) mmol/L Anion Gap 11.0 (5-15) MEQ/L BUN 8 L (9-20) mg/dL Creatinine 0.44 L (0.66-1.25) mg/dL Estimated GFR > 60.0 ML/MIN Glucose 142 H (74-106) mg/dL Calcium 7.0 L (8.4-10.2) mg/dL Radiology Exams: Radiology Procedures Category Date Time Status ABDOMEN AND PELVIS W/0 CONTRAS [CT] Routine Exams 06/11/22 09:01 Ordered CHEST 2 VIEWS (PA AND LAT) Routine Exams 06/11/22 08:58 Ordered CHEST 2 VIEWS (PA AND LAT) Stat Exams 06/09/22 16:05 Completed Assessment/Plan (1) Left lower lobe pneumonia Current Visit: Yes Status: Acute Qualifiers: Pneumonia type: due to unspecified organism Qualified Code(s): J18.9 - Pneumonia, unspecified organism Assessment & Plan: on IV rocephin and zithromax, day #3. Procalcitonin pending. WBC 20,000 this morning, but has been on steroids. Will decrease steroids a bit. Code(s): J18.9 - PNEUMONIA, UNSPECIFIED ORGANISM (2) Weakness Current Visit: Yes Status: Acute Assessment & Plan: PT consult. Code(s): R53.1 - WEAKNESS (3) Pneumaturia Current Visit: Yes Status: Chronic Assessment & Plan: CT abd/pelvis. Code(s): R39.89 - OTHER SYMPTOMS AND SIGNS INVOLVING THE GENITOURINARY SYSTEM (4) Abdominal distension Current Visit: Yes Status: Chronic Code(s): R14.0 - ABDOMINAL DISTENSION (GASEOUS)
[2022-06-11] MEDS: Mylicon 80MG PO PRN (10:52)
[2022-06-11] MEDS: Protonix 40MG Tablet PO SCH ×2 (10:52→21:21)
[2022-06-11] MEDS: SYNTHROID 50 MCG PO SCH (10:52)
[2022-06-11] MEDS: Coreg 3.125 MG PO SCH ×2 (10:52→21:21)
[2022-06-11] MEDS: ROCEPHIN 1 Gm-D5w 50 ml Bag** 1 G/50 ML IVPB IV SCH (10:52)
[2022-06-11] MEDS: Zithromax 500 MG/ 250 ML NaCl Premix 500 MG/250 ML IVPB IV SCH (10:52)
[2022-06-11] MEDS: ENOXAPARIN SODIUM SQ SCH (10:52)
[2022-06-11] MEDS: NORVASC 5 MG PO SCH (10:53)
--- NOTE | 2022-06-11 12:54 | XRAY ---
Indication: Left and right lower quadrant pain 2 days. Multiple contiguous axial images obtained through the abdomen and pelvis without contrast. Comparison: July 01, 2018 New mild diffuse anasarca. Lung bases demonstrates new incompletely visualized moderate left and tiny right effusions with bibasilar compressive atelectasis. Heart not enlarged. Noncontrasted stomach and bowel loops appear nonobstructed again with appendectomy. New cirrhotic liver with mild/moderate abdominal and pelvic ascites. No free air. Gallbladder is mildly distended with new tiny gallstones/gravel near the neck of the gallbladder. Stable tiny splenic calcified granulomas. Remaining pancreas, adrenal glands, kidneys, ureters, and bladder are unremarkable for noncontrast exam. Again moderate diffuse scattered aortoiliac calcifications without AAA. Osseous structures intact with now osteopenia and new L2 superior endplate concave fracture with less than 25% height loss of uncertain chronicity. Impression: 1. New cirrhotic liver with abdominal/pelvic ascites. 2. New anasarca and bibasilar effusions/atelectasis which may be related. 3. New distended gallbladder with gallstones/gravel. Sonogram may yield further information if clinically warranted. 4. New L2 superior endplate fracture of uncertain chronicity. 5. Chronic findings including osteopenia and arteriosclerotic disease.
--- NOTE | 2022-06-11 12:56 | XRAY ---
Indication: Cough. Pneumonia. Comparison: June 09, 2022 PA/lateral chest demonstrates interval worsening moderate left base and stable minimal right base infiltrates/atelectasis/effusions. Remaining heart and upper lungs unremarkable.
[2022-06-11] MEDS ORDERED: DICLOFENAC SODIUM TP PRN (15:21)
[2022-06-11 16:27] LABS: ALBUMIN 2.5 g/dL (3.5-5.0); BILIRUBIN,TOTAL 0.3 mg/dL (0.2-1.3); Direct Bilirubin 0.1 mg/dL (0.0-0.4); Total Protein 6.1 g/dL (6.3-8.2)
[2022-06-11 16:29] LABS: INR 0.98 (0.8-3.0); PROTIME 10.7 SECONDS (9.4-12.5)
[2022-06-11] MEDS: Lasix 40 MG/4 ML IV SCH (16:54)
[2022-06-11] MEDS: PIPERACILLIN/TAZOBACTAM 3.375 GM in Sodium Chloride 100ML MINI-BAG PLUS 100 ML IV SCH ×2 (16:54→23:15)
[2022-06-11] MEDS: ZOCOR 20MG PO SCH (21:21)
[2022-06-12 04:17] LABS: Absolute Neutrophil Ct (ANC) 18.12 x10^3/uL (1.4-6.9); BASOPHIL % 0.1 % (0.0-0.4); Basophil (Absolute #) 0.02 x10^3/uL (0-0.4); Eosinophil (Absolute #) 0 x10^3/uL (0-0.5); Hematocrit 34.6 % (42-50); Hemoglobin 11.3 g/dL (12.5-18.0); IMMATURE GRAN # 0.11 x10^3u/L (0.00-0.03); IMMATURE GRAN % 0.6 % (0.00-0.4); Lymphocyte (Absolute #) 0.72 x10^3/uL (1.0-4.6); Lymphocytes % 3.7 % (24.0-44.0); Mean Cell Volume 100.9 fL (78-100); Mean Corpuscular Hemoglobin 32.9 pg (26-32); Mean Corpuscular Hgb Concent. 32.7 g/dL (32-36); Mean Platelet Volume 10.4 fL (7.5-11.0); Monocyte (Absolute #) 0.61 x10^3/uL (0.0-1.3); Monocytes % 3.1 % (0.0-12.0); NUCLEATED RBC # 0.02 x10^3u/L (0.00-0.01); NUCLEATED RBC % 0.1 % (0.00-0.1); Neutrophil % 92.5 % (36.0-66.0); Platelet Count 242 x10^3/uL (150-450); Red Blood Count 3.43 x10^6/uL (4.1-5.6); Red Cell Distribution Width 14.2 % (11.5-14.0); White Blood Count 19.6 x10^3/uL (4.0-10.5)
[2022-06-12 04:29] LABS: ANION GAP 10.4 MEQ/L (5-15); BLOOD UREA NITROGEN 10 mg/dL (9-20); CHLORIDE 105 mmol/L (98-107); Calcium 6.8 mg/dL (8.4-10.2); Carbon Dioxide 22 mmol/L (22-30); Creatinine 1 0.64 mg/dL (0.66-1.25); EST GLOMERULAR FILTRATION RATE > 60.0 ML/MIN; Glucose 127 mg/dL (74-106); SODIUM 135 mmol/L (137-145)
[2022-06-12 04:33] LABS: Potassium 2.8 mmol/L (3.5-5.1)
[2022-06-12] MEDS: POTASSIUM CHLORIDE 20 mEq IN WATER 100ML 100 ML IV SCH ×2 (04:51→07:32)
[2022-06-12] MEDS: Klor Con PO SCH ×4 (04:51→10:45)
[2022-06-12] MEDS: solu-MEDROL 60 MG, Sterile H2O 10 ml 2 ML IV SCH ×2 (05:20)
[2022-06-12] MEDS: PIPERACILLIN/TAZOBACTAM 3.375 GM in Sodium Chloride 100ML MINI-BAG PLUS 100 ML IV SCH ×4 (05:21→23:51)
[2022-06-12] MEDS: PATIENT OWN MEDICATION IH SCH ×2 (06:46→07:05)
[2022-06-12] MEDS: ENOXAPARIN SODIUM SQ SCH (09:35)
[2022-06-12] MEDS: Coreg 3.125 MG PO SCH ×2 (09:35→22:56)
[2022-06-12] MEDS: Protonix 40MG Tablet PO SCH ×2 (09:35→22:56)
[2022-06-12] MEDS: SYNTHROID 50 MCG PO SCH (09:35)
[2022-06-12] MEDS: Lasix 40 MG/4 ML IV SCH (09:59)
--- NOTE | 2022-06-12 12:31 | XRAY ---
Indication: Pneumonia. Comparison: One day earlier Portable chest demonstrates worsening moderate left base and worsening mild right base infiltrates/atelectasis/effusions. Remaining heart and upper lungs unremarkable.
[2022-06-12] MEDS: Aldactone 25 MG PO SCH (12:38)
[2022-06-12] MEDS: NORVASC 5 MG PO SCH (12:39)
--- NOTE | 2022-06-12 13:07 | PCM.NOTE ---
Date and Time: 06/12/22 1301 OBJECTIVE DATA Vital Signs: Vital Signs - 24 hr Temp Pulse Resp BP BP Pulse Ox 06/12/22 12:09 97.5 F 76 16 108/69 96 06/12/22 09:33 82 113/73 06/12/22 08:00 97.3 F 81 16 105/67 96 06/12/22 07:28 73 20 92 L 06/12/22 03:47 97.3 F 75 16 100/65 93 L 06/12/22 00:00 97.1 F 84 16 102/63 92 L 06/11/22 20:00 97.6 F 83 16 112/69 96 06/11/22 18:00 89 20 96 06/11/22 16:00 98.1 F 92 H 18 111/71 95 Pain Assessment - Last Documented Pain Intensity 0 Intake and Output: Intake & Output 06/10/22 06/11/22 06/12/22 06/13/22 11:59 11:59 11:59 11:59 Intake Total 1172 3225 2649 60 Output Total 250 600 950 300 Balance 922 2625 1699 -240 Weight 57.8 kg 57.4 kg 60 kg Lab Results: Lab Results-Last 24 Hours 06/11/22 06/11/22 06/11/22 Range/Units 16:00 16:00 16:00 WBC (4.0-10.5) x10^3/uL RBC (4.1-5.6) x10^6/uL Hgb (12.5-18.0) g/dL Hct (42-50) % MCV (78-100) fL MCH (26-32) pg MCHC (32-36) g/dL RDW (11.5-14.0) % Plt Count (150-450) x10^3/uL MPV (7.5-11.0) fL Gran % (36.0-66.0) % Immature Gran % (Auto) (0.00-0.4) % Nucleat RBC Rel Count (0.00-0.1) % Eos # (Auto) (0-0.5) x10^3/uL Immature Gran # (Auto) (0.00-0.03) x10^3u/L Absolute Lymphs (auto) (1.0-4.6) x10^3/uL Absolute Monos (auto) (0.0-1.3) x10^3/uL Absolute Nucleated RBC (0.00-0.01) x10^3u/L Lymphocytes % (24.0-44.0) % Monocytes % (0.0-12.0) % Eosinophils % (0.00-5.0) % Basophils % (0.0-0.4) % Absolute Granulocytes (1.4-6.9) x10^3/uL Basophils # (0-0.4) x10^3/uL ESR 67 H (0-15) mm/hr PT 10.7 (9.4-12.5) SECONDS INR 0.98 (0.8-3.0) APTT (25.1-36.5) SECONDS Sodium (137-145) mmol/L Potassium (3.5-5.1) mmol/L Chloride (98-107) mmol/L Carbon Dioxide (22-30) mmol/L Anion Gap (5-15) MEQ/L BUN (9-20) mg/dL Creatinine (0.66-1.25) mg/dL Estimated GFR ML/MIN Glucose (74-106) mg/dL Calcium (8.4-10.2) mg/dL Magnesium (1.6-2.3) mg/dL Ferritin (17.9-464) ng/mL Total Bilirubin 0.30 (0.2-1.3) mg/dL Direct Bilirubin 0.1 (0.0-0.4) mg/dL AST 29 (17-59) U/L ALT 20 (0-50) U/L Alkaline Phosphatase 131 H (38-126) U/L Serum Total Protein 6.1 L (6.3-8.2) g/dL Albumin 2.5 L (3.5-5.0) g/dL 06/11/22 06/11/22 06/12/22 Range/Units 16:00 16:00 04:09 WBC 19.6 H (4.0-10.5) x10^3/uL RBC 3.43 L (4.1-5.6) x10^6/uL Hgb 11.3 L (12.5-18.0) g/dL Hct 34.6 L (42-50) % MCV 100.9 H (78-100) fL MCH 32.9 H (26-32) pg MCHC 32.7 (32-36) g/dL RDW 14.2 H (11.5-14.0) % Plt Count 242 (150-450) x10^3/uL MPV 10.4 (7.5-11.0) fL Gran % 92.5 H (36.0-66.0) % Immature Gran % (Auto) 0.6 H (0.00-0.4) % Nucleat RBC Rel Count 0.1 (0.00-0.1) % Eos # (Auto) 0 (0-0.5) x10^3/uL Immature Gran # (Auto) 0.11 H (0.00-0.03) x10^3u/L Absolute Lymphs (auto) 0.72 L (1.0-4.6) x10^3/uL Absolute Monos (auto) 0.61 (0.0-1.3) x10^3/uL Absolute Nucleated RBC 0.02 H (0.00-0.01) x10^3u/L Lymphocytes % 3.7 L (24.0-44.0) % Monocytes % 3.1 (0.0-12.0) % Eosinophils % 0.0 (0.00-5.0) % Basophils % 0.1 (0.0-0.4) % Absolute Granulocytes 18.12 H (1.4-6.9) x10^3/uL Basophils # 0.02 (0-0.4) x10^3/uL ESR (0-15) mm/hr PT (9.4-12.5) SECONDS INR (0.8-3.0) APTT 27.2 (25.1-36.5) SECONDS Sodium (137-145) mmol/L Potassium (3.5-5.1) mmol/L Chloride (98-107) mmol/L Carbon Dioxide (22-30) mmol/L Anion Gap (5-15) MEQ/L BUN (9-20) mg/dL Creatinine (0.66-1.25) mg/dL Estimated GFR ML/MIN Glucose (74-106) mg/dL Calcium (8.4-10.2) mg/dL Magnesium (1.6-2.3) mg/dL Ferritin 430 (17.9-464) ng/mL Total Bilirubin (0.2-1.3) mg/dL Direct Bilirubin (0.0-0.4) mg/dL AST (17-59) U/L ALT (0-50) U/L Alkaline Phosphatase (38-126) U/L Serum Total Protein (6.3-8.2) g/dL Albumin (3.5-5.0) g/dL 06/12/22 06/12/22 06/12/22 Range/Units 04:09 04:09 04:34 WBC (4.0-10.5) x10^3/uL RBC (4.1-5.6) x10^6/uL Hgb (12.5-18.0) g/dL Hct (42-50) % MCV (78-100) fL MCH (26-32) pg MCHC (32-36) g/dL RDW (11.5-14.0) % Plt Count (150-450) x10^3/uL MPV (7.5-11.0) fL Gran % (36.0-66.0) % Immature Gran % (Auto) (0.00-0.4) % Nucleat RBC Rel Count (0.00-0.1) % Eos # (Auto) (0-0.5) x10^3/uL Immature Gran # (Auto) (0.00-0.03) x10^3u/L Absolute Lymphs (auto) (1.0-4.6) x10^3/uL Absolute Monos (auto) (0.0-1.3) x10^3/uL Absolute Nucleated RBC (0.00-0.01) x10^3u/L Lymphocytes % (24.0-44.0) % Monocytes % (0.0-12.0) % Eosinophils % (0.00-5.0) % Basophils % (0.0-0.4) % Absolute Granulocytes (1.4-6.9) x10^3/uL Basophils # (0-0.4) x10^3/uL ESR (0-15) mm/hr PT (9.4-12.5) SECONDS INR (0.8-3.0) APTT (25.1-36.5) SECONDS Sodium 135 L (137-145) mmol/L Potassium 2.8 L* D 2.9 L* (3.5-5.1) mmol/L Chloride 105 (98-107) mmol/L Carbon Dioxide 22 (22-30) mmol/L Anion Gap 10.4 (5-15) MEQ/L BUN 10 (9-20) mg/dL Creatinine 0.64 L (0.66-1.25) mg/dL Estimated GFR > 60.0 ML/MIN Glucose 127 H (74-106) mg/dL Calcium 6.8 L (8.4-10.2) mg/dL Magnesium 1.5 L (1.6-2.3) mg/dL Ferritin (17.9-464) ng/mL Total Bilirubin (0.2-1.3) mg/dL Direct Bilirubin (0.0-0.4) mg/dL AST (17-59) U/L ALT (0-50) U/L Alkaline Phosphatase (38-126) U/L Serum Total Protein (6.3-8.2) g/dL Albumin (3.5-5.0) g/dL 06/12/22 Range/Units 08:40 WBC (4.0-10.5) x10^3/uL RBC (4.1-5.6) x10^6/uL Hgb (12.5-18.0) g/dL Hct (42-50) % MCV (78-100) fL MCH (26-32) pg MCHC (32-36) g/dL RDW (11.5-14.0) % Plt Count (150-450) x10^3/uL MPV (7.5-11.0) fL Gran % (36.0-66.0) % Immature Gran % (Auto) (0.00-0.4) % Nucleat RBC Rel Count (0.00-0.1) % Eos # (Auto) (0-0.5) x10^3/uL Immature Gran # (Auto) (0.00-0.03) x10^3u/L Absolute Lymphs (auto) (1.0-4.6) x10^3/uL Absolute Monos (auto) (0.0-1.3) x10^3/uL Absolute Nucleated RBC (0.00-0.01) x10^3u/L Lymphocytes % (24.0-44.0) % Monocytes % (0.0-12.0) % Eosinophils % (0.00-5.0) % Basophils % (0.0-0.4) % Absolute Granulocytes (1.4-6.9) x10^3/uL Basophils # (0-0.4) x10^3/uL ESR (0-15) mm/hr PT (9.4-12.5) SECONDS INR (0.8-3.0) APTT (25.1-36.5) SECONDS Sodium (137-145) mmol/L Potassium 3.6 D (3.5-5.1) mmol/L Chloride (98-107) mmol/L Carbon Dioxide (22-30) mmol/L Anion Gap (5-15) MEQ/L BUN (9-20) mg/dL Creatinine (0.66-1.25) mg/dL Estimated GFR ML/MIN Glucose (74-106) mg/dL Calcium (8.4-10.2) mg/dL Magnesium (1.6-2.3) mg/dL Ferritin (17.9-464) ng/mL Total Bilirubin (0.2-1.3) mg/dL Direct Bilirubin (0.0-0.4) mg/dL AST (17-59) U/L ALT (0-50) U/L Alkaline Phosphatase (38-126) U/L Serum Total Protein (6.3-8.2) g/dL Albumin (3.5-5.0) g/dL Radiology Exams: Radiology Procedures Category Date Time Status ABDOMEN AND PELVIS W/0 CONTRAS [CT] Routine Exams 06/11/22 09:01 Completed BLADDER [US] Routine Exams 06/12/22 12:08 Ordered CHEST 1 VIEW (PORTABLE) Routine Exams 06/12/22 12:07 Completed CHEST 2 VIEWS (PA AND LAT) Routine Exams 06/11/22 08:58 Completed ECHO W/2D AND DOPPLER [US] Routine Exams 06/11/22 15:16 Taken Multi-Disciplinary Progress Notes: Multi-Disciplinary Progress Notes 06/12/22 10:02 Physical Therapy Note by Avinash(Nell#[id number]),Brina ATTEMPTED TO SEE PT. THIS AM FOR P.T. PT. REFUSED HE IS TIRED AND WOULD LIKE TO WAIT TO SEE DR. STINSON. PT. IS REFUSING REHAB STAY OR HHC. WILL ATTEMPT TO SEE PT. AGAIN LATER TODAY. Initialized on 06/12/22 10:02 - END OF NOTE 06/12/22 09:10 Case Management Note by Katie Harris S/W PATIENT ABOUT NEEDS AT DC- A REHAB STAY WAS STRONGLY ENCOURAGED- PATIENT DECLINED. HE WAS THEN ENCOURAGED TO DO OTPT PT OR HHC- PATIENT DECLINED BOTH. PATIENT REPORTS " ILL BE FINE WHEN I GET HOME". HE IS CURRENTLY STAYING WITH HIS SISTER AND BROTHER IN LAW AND REPORTS THEY WILL BE ABLE TO ASSIST HIM. PHYSICAL THERAPY ALSO RECOMMENDED A WALKER. PATIENT REFUSING FOR THIS OWNER [employer]PA DIRECTOR TO SEND IN AN ORDER FOR THIS WELL. HE SAYS HIS SISTER HAS ONE AT HOME THAT SHE NEVER USES AND HE CAN USE THAT. PATIENT EDUCATED THAT HE COULD FALL AT HOME AND SIGNIFICANTLY INJURE HIMSELF- PATIENT VERIFIED UNDERSTANDING BUT IS STILL REFUSING ANY SERVICE/EQUIPMENT AT THIS TIME Initialized on 06/12/22 09:10 - END OF NOTE Assessment/Plan (1) Left lower lobe pneumonia Current Visit: Yes Status: Acute Qualifiers: Pneumonia type: due to unspecified organism Qualified Code(s): J18.9 - Pneumonia, unspecified organism Assessment & Plan: Possible, with fluid and elevated WBC. On IV Zosyn day #2. Could also be related to cirrhosis. Will be discussing his case with GI today. Code(s): J18.9 - PNEUMONIA, UNSPECIFIED ORGANISM (2) Weakness Current Visit: Yes Status: Acute Code(s): R53.1 - WEAKNESS (3) Cirrhosis Current Visit: Yes Status: Acute Qualifiers: Hepatic cirrhosis type: unspecified hepatic cirrhosis Ascites presence: w ith ascites Qualified Code(s): K74.60 - Unspecified cirrhosis of liver; R18.8 - Other ascites (4) Ascites Current Visit: Yes Status: Acute Qualifiers: Ascites type: due to alcoholic cirrhosis Qualified Code(s): K70.31 - Alcoholic cirrhosis of liver with ascites Assessment & Plan: We discussed possibility of paracentesis, therapeutic and diagnostic. Code(s): R18.8 - OTHER ASCITES (5) Anasarca Current Visit: Yes Status: Acute Assessment & Plan: started lasix IV and spironolactone (today) po. Consider adding albumin. Code(s): R60.1 - GENERALIZED EDEMA
[2022-06-12] MEDS ORDERED: Ativan 1 MG PO PRN ×3 (13:08→14:02)
[2022-06-12] MEDS ORDERED: Ativan 2 MG/1 ML VIAL IV PRN ×3 (13:10→14:02)
--- NOTE | 2022-06-12 13:55 | XRAY ---
Indication: Urinary retention. Ultrasound of the minimally distended urinary bladder is grossly negative for bladder mass or focal wall thickening. Ureteral jets not seen within the allotted exam time. Prevoid bladder volume is 87 cc. Postvoid volume is 3 cc. Incidental incompletely visualized pelvic ascites. Impression: Tiny urinary bladder post void residual. Incidental incompletely visualized ascites.
[2022-06-12 14:16] LABS: ALBUMIN 2.3 g/dL (3.5-5.0); BILIRUBIN,TOTAL 0.4 mg/dL (0.2-1.3); Direct Bilirubin 0.1 mg/dL (0.0-0.4); Potassium 3.9 mmol/L (3.5-5.1); Total Protein 5.7 g/dL (6.3-8.2)
[2022-06-12] MEDS ORDERED: THIAMINE 200 MG/2 ML*** 100 MG, Vitamins For Infusion 10 ML INJECTION*** 10 ML, FOLNATE... IV PRN ×4 (15:00)
[2022-06-12] MEDS: ZOCOR 20MG PO SCH (22:56)
[2022-06-13] MEDS: Sodium Chloride 0.9% 1000 ML 1,000 ML IV SCH ×2 (03:33→19:44)
[2022-06-13 05:11] LABS: BASOPHIL % 0.1 % (0.0-0.4); Basophil (Absolute #) 0.02 x10^3/uL (0-0.4); Eosinophil (Absolute #) 0 x10^3/uL (0-0.5); Hematocrit 32.6 % (42-50); Hemoglobin 10.8 g/dL (12.5-18.0); IMMATURE GRAN # 0.18 x10^3u/L (0.00-0.03); IMMATURE GRAN % 0.9 % (0.00-0.4); Lymphocyte (Absolute #) 1.38 x10^3/uL (1.0-4.6); Mean Cell Volume 102.5 fL (78-100); Mean Corpuscular Hgb Concent. 33.1 g/dL (32-36); Mean Platelet Volume 10.5 fL (7.5-11.0); Monocyte (Absolute #) 1.07 x10^3/uL (0.0-1.3); Monocytes % 5.4 % (0.0-12.0); Neutrophil % 86.6 % (36.0-66.0); Platelet Count 217 x10^3/uL (150-450); Red Blood Count 3.18 x10^6/uL (4.1-5.6); Red Cell Distribution Width 14.5 % (11.5-14.0); White Blood Count 19.8 x10^3/uL (4.0-10.5)
[2022-06-13 05:27] LABS: ANION GAP 5.5 MEQ/L (5-15); BLOOD UREA NITROGEN 8 mg/dL (9-20); CHLORIDE 110 mmol/L (98-107); Calcium 6.8 mg/dL (8.4-10.2); Carbon Dioxide 25 mmol/L (22-30); Creatinine 1 0.58 mg/dL (0.66-1.25); EST GLOMERULAR FILTRATION RATE > 60.0 ML/MIN; Glucose 102 mg/dL (74-106); Potassium 3.2 mmol/L (3.5-5.1); SODIUM 137 mmol/L (137-145)
[2022-06-13] MEDS: PIPERACILLIN/TAZOBACTAM 3.375 GM in Sodium Chloride 100ML MINI-BAG PLUS 100 ML IV SCH ×3 (05:51→17:04)
[2022-06-13] MEDS: Lasix 40 MG/4 ML IV SCH (08:59)
[2022-06-13] MEDS: Aldactone 25 MG PO SCH (08:59)
[2022-06-13] MEDS: Protonix 40MG Tablet PO SCH ×2 (08:59→21:58)
[2022-06-13] MEDS: PATIENT OWN MEDICATION IH SCH (09:00)
[2022-06-13] MEDS: NORVASC 5 MG PO SCH (09:00)
[2022-06-13] MEDS: ENOXAPARIN SODIUM SQ SCH (09:00)
[2022-06-13] MEDS: Coreg 3.125 MG PO SCH ×2 (09:00→21:57)
[2022-06-13] MEDS: SYNTHROID 50 MCG PO SCH (09:00)
--- NOTE | 2022-06-13 11:40 | PCM.NOTE ---
Date and Time: 06/13/22 1133 Subjective Assessment: Pt tells me he is feeling better, still tired. Jori po fine (ate half of breakfast). Tells me he spoke with PT and indicates that he gets up with standby. Breathing is better. Scheduled for paracentesis today at 1 p.m. - Review of Systems Constitutional: No Fever Respiratory: Cough (minimal), Short Of Breath Objective Exam General Appearance: no apparent distress, thin Neurologic Exam: oriented x 3, cooperative Skin Exam: normal color, warm, dry, No rash Eye Exam: eyes nml inspection Neck Exam: normal inspection Respiratory Exam: diminished breath sounds (good air exchange), No crackles/rales, No rhonchi, No wheezing Cardiovascular Exam: normal heart sounds, tachycardia (mildly; reg rhythym), No murmur Gastrointestinal/Abdomen Exam: soft, normal bowel sounds, tenderness (RUQ), distention, No mass, No guarding, No rebound Extremity Exam: normal inspection, No swelling, No tenderness Back Exam: normal inspection, No rash OBJECTIVE DATA Vital Signs: Vital Signs - 24 hr Temp Pulse Resp BP Pulse Ox 06/13/22 11:12 97.7 F 70 18 109/65 94 L 06/13/22 09:00 100 H 20 93 L 06/13/22 06:39 97.5 F 79 16 114/72 93 L 06/13/22 04:00 97.9 F 68 18 114/70 95 06/12/22 23:42 97.4 F 78 15 112/65 94 L 06/12/22 20:11 88 16 95 06/12/22 20:00 97.4 F 91 H 15 108/66 95 06/12/22 16:20 97.3 F 88 17 116/70 94 L 06/12/22 14:00 97.3 F 87 16 110/69 96 06/12/22 12:09 97.5 F 76 16 108/69 96 Pain Assessment - Last Documented Pain Intensity 5 Intake and Output: Intake & Output 06/10/22 06/11/22 06/12/22 06/13/22 11:59 11:59 11:59 11:59 Intake Total 1172 5545 2649 2567 Output Total 250 600 950 600 Balance 922 9595 4449 1967 Weight 57.8 kg 57.4 kg 60 kg 59.9 kg Lab Results: Lab Results-Last 24 Hours 06/12/22 06/13/22 06/13/22 Range/Units 13:52 04:57 04:57 WBC 19.8 H (4.0-10.5) x10^3/uL RBC 3.18 L (4.1-5.6) x10^6/uL Hgb 10.8 L (12.5-18.0) g/dL Hct 32.6 L (42-50) % MCV 102.5 H (78-100) fL MCH 34.0 H (26-32) pg MCHC 33.1 (32-36) g/dL RDW 14.5 H (11.5-14.0) % Plt Count 217 (150-450) x10^3/uL MPV 10.5 (7.5-11.0) fL Gran % 86.6 H (36.0-66.0) % Immature Gran % (Auto) 0.9 H (0.00-0.4) % Nucleat RBC Rel Count 0.0 (0.00-0.1) % Eos # (Auto) 0 (0-0.5) x10^3/uL Immature Gran # (Auto) 0.18 H (0.00-0.03) x10^3u/L Absolute Lymphs (auto) 1.38 (1.0-4.6) x10^3/uL Absolute Monos (auto) 1.07 (0.0-1.3) x10^3/uL Absolute Nucleated RBC 0.00 (0.00-0.01) x10^3u/L Lymphocytes % 7.0 L (24.0-44.0) % Monocytes % 5.4 (0.0-12.0) % Eosinophils % 0.0 (0.00-5.0) % Basophils % 0.1 (0.0-0.4) % Absolute Granulocytes 17.10 H (1.4-6.9) x10^3/uL Basophils # 0.02 (0-0.4) x10^3/uL Sodium 137 (137-145) mmol/L Potassium 3.9 3.2 L (3.5-5.1) mmol/L Chloride 110 H (98-107) mmol/L Carbon Dioxide 25 (22-30) mmol/L Anion Gap 5.5 (5-15) MEQ/L BUN 8 L (9-20) mg/dL Creatinine 0.58 L (0.66-1.25) mg/dL Estimated GFR > 60.0 ML/MIN Glucose 102 (74-106) mg/dL Calcium 6.8 L (8.4-10.2) mg/dL Magnesium (1.6-2.3) mg/dL Total Bilirubin 0.40 (0.2-1.3) mg/dL Direct Bilirubin 0.1 (0.0-0.4) mg/dL AST 58 (17-59) U/L ALT 27 (0-50) U/L Alkaline Phosphatase 126 (38-126) U/L Serum Total Protein 5.7 L (6.3-8.2) g/dL Albumin 2.3 L (3.5-5.0) g/dL 06/13/22 Range/Units 04:57 WBC (4.0-10.5) x10^3/uL RBC (4.1-5.6) x10^6/uL Hgb (12.5-18.0) g/dL Hct (42-50) % MCV (78-100) fL MCH (26-32) pg MCHC (32-36) g/dL RDW (11.5-14.0) % Plt Count (150-450) x10^3/uL MPV (7.5-11.0) fL Gran % (36.0-66.0) % Immature Gran % (Auto) (0.00-0.4) % Nucleat RBC Rel Count (0.00-0.1) % Eos # (Auto) (0-0.5) x10^3/uL Immature Gran # (Auto) (0.00-0.03) x10^3u/L Absolute Lymphs (auto) (1.0-4.6) x10^3/uL Absolute Monos (auto) (0.0-1.3) x10^3/uL Absolute Nucleated RBC (0.00-0.01) x10^3u/L Lymphocytes % (24.0-44.0) % Monocytes % (0.0-12.0) % Eosinophils % (0.00-5.0) % Basophils % (0.0-0.4) % Absolute Granulocytes (1.4-6.9) x10^3/uL Basophils # (0-0.4) x10^3/uL Sodium (137-145) mmol/L Potassium (3.5-5.1) mmol/L Chloride (98-107) mmol/L Carbon Dioxide (22-30) mmol/L Anion Gap (5-15) MEQ/L BUN (9-20) mg/dL Creatinine (0.66-1.25) mg/dL Estimated GFR ML/MIN Glucose (74-106) mg/dL Calcium (8.4-10.2) mg/dL Magnesium 1.6 (1.6-2.3) mg/dL Total Bilirubin (0.2-1.3) mg/dL Direct Bilirubin (0.0-0.4) mg/dL AST (17-59) U/L ALT (0-50) U/L Alkaline Phosphatase (38-126) U/L Serum Total Protein (6.3-8.2) g/dL Albumin (3.5-5.0) g/dL Radiology Exams: Radiology Procedures Category Date Time Status ABDOMINAL PARACENTESIS [US] Urgent Exams 06/13/22 07:58 Ordered BLADDER [US] Routine Exams 06/12/22 12:08 Completed CHEST 1 VIEW (PORTABLE) Routine Exams 06/12/22 12:07 Completed ECHO W/2D AND DOPPLER [US] Routine Exams 06/11/22 15:16 Taken Multi-Disciplinary Progress Notes: Multi-Disciplinary Progress Notes 06/13/22 10:44 Case Management Note by Katie Harris S/W PATIENT AGAIN ABOUT PLANS AT DC- HE AGAIN REFUSES REHAB PLACEMENT BUT IS NOW OPEN TO OTPT PT AFTER DC. PATIENT CONTINUES TO DENY THE NEED FOR A WALKER HE SAYS HE HAS ONE AT HOME Initialized on 06/13/22 10:44 - END OF NOTE 06/13/22 10:20 Physical Therapy Note by Avinash(Nell#[id number]),Brina PT. CAN AMBULATE AND TRANSFER W/ ASSIST OF [facility] AT THIS TIME. PLAN IS TO CONT. W/ OP P.T. AFTER D/C. PT. NEEDS TO TRANSFER TO CHAIR FOR MEALS AND AMBULATE 60-80' BID W/ ROLLATOR AND CGA-SBA . Initialized on 06/13/22 10:20 - END OF NOTE 06/12/22 18:55 Physical Therapy Note by Avinash(L#[id number])Brina PT. WAS SEEN BY P.T. THIS P.M. AFTER ENCOURAGEMENT TO WALK W/ P.T. PT. REPORTS HE HASN'T SLEPT WELL SINCE BEING ADMITTED. NO C/O PN TODAY. O2 SATS 95% ON RA AT REST. HR 88 BPM. PERFORMED SUPINE TO SIT W/ MIN ASSIST W/ HOB ELEVATED TO ASSIST W/ RIGHTING TRUNK. PT. C/O R LATERAL HIP PN W/ MOVING R LE INTO ADDUCTION TO MOVE TO SIDE OF BED. THIS RESOLVED QUICKLY AND PT. REPORTS IS CHRONIC. PERFORMED SIT TO STAND FROM BED W/ CGA. AMBULATED ~ 80' IN ROOM W/ ROLLATOR AND CGA. IMPROVED FOOT CLEARANCE AND STABILITY W/ GAIT TODAY. O2 SATS 92% AND HR 96 BPM ATFER WALK. PT. RESTED IN BEDSIDE CHAIR FOOD ADVISER MADE HIS BED. REQUIRED MIN ASSIST FOR SIT TO STAND FROM RECLINER D/T LOWER SEAT HEIGHT AND LE WEAKNESS. PT. ABLE TO PERFORM SIT TO SUPINE W/ SBA. PT. CONT. TO DENY NEED FOR HHC OR REHAB STAY DESPITE WEAKNESS. PT. WOULD BENEFIT FROM ADDITIONAL P.T./O.T. VIA REHAB OR HHC D/T LEVEL OF WEAKNESS. REPORTS HE WOULD BE INTERESTED IN OP THERAPY AFTER D/C. WILL CONT. P.T. 5X/WK UNTIL D/C. Initialized on 06/12/22 18:55 - END OF NOTE Assessment/Plan (1) Left lower lobe pneumonia Current Visit: Yes Status: Acute Qualifiers: Pneumonia type: due to unspecified organism Qualified Code(s): J18.9 - Pneumonia, unspecified organism Assessment & Plan: Possibly, with fluid on CXR - could also be due to ascites. On zosyn day #3. Code(s): J18.9 - PNEUMONIA, UNSPECIFIED ORGANISM (2) Weakness Current Visit: Yes Status: Acute Assessment & Plan: PT Code(s): R53.1 - WEAKNESS (3) Cirrhosis Current Visit: Yes Status: Chronic Qualifiers: Hepatic cirrhosis type: unspecified hepatic cirrhosis Ascites presence: with ascites Qualified Code(s): K74.60 - Unspecified cirrhosis of liver; R18.8 - Other ascites Assessment & Plan: I spoke with GI yesterday about his cirrhosis (pt has appt with GI in June). We discussed need for paracentesis. Unfortunately he wasn't able to get one prior to starting abx. If was thought to have SBP (or < 1g protein in ascitic fluid), would need albumin replaced, but otherwise since renal function is normal will not be replacing it. Hepatitis panel neg in August 2021 but rechecking. Apparently has been a drinker - on [facility] protocol. (4) Ascites Current Visit: Yes Status: Acute Qualifiers: Ascites type: due to alcoholic cirrhosis Qualified Code(s): K70.31 - Alcoholic cirrhosis of liver with ascites Code(s): R18.8 - OTHER ASCITES (5) Anasarca Current Visit: Yes Status: Acute Code(s): R60.1 - GENERALIZED EDEMA (6) Urinary retention Current Visit: Yes Status: Ruled-out Assessment & Plan: Actually bladder scan with minimal postvoid residual. Code(s): R33.9 - RETENTION OF URINE, UNSPECIFIED (7) Alcohol use disorder Current Visit: Yes Status: Chronic Assessment & Plan: Last drink Saturday, I believe Code(s): F10.90 - ALCOHOL USE, UNSPECIFIED, UNCOMPLICATED
[2022-06-13 13:08] LABS: Complement C3 114 mg/dL (82-167)
[2022-06-13 13:50] LABS: BODY FLUID CELL COUNT RBC 0.001 x10^6u/L; BODY FLUID CELL COUNT WBC 0.213 x10^3u/L
[2022-06-13 13:53] LABS: BF CLARITY CLEAR (CLEAR); BF-COLOR COLORLESS (COLORLESS)
[2022-06-13 13:55] LABS: BF SPECIMEN TYPE PERITONEAL
--- NOTE | 2022-06-13 13:59 | XRAY ---
Indication: Ascites. Procedure was performed bedside. Informed consent obtained. Patient placed supine. Initial abdominal ultrasound performed for localization. Right midanterior abdominal wall was prepped and draped in sterile fashion. 1% lidocaine plain was used for local anesthesia. Tiny skin incision made. 5 [employer] paracentesis needle/catheter was then percutaneously inserted. Once fluid was aspirating, the outer catheter was then advanced with the inner needle removed. Approximately 30 cc aspirated, collected, and sent to laboratory for analysis. Catheter was then connected to a Vacutainer. Approximately 2.5 L of clear aman color fluid aspirated and was disposed of properly. Repeat sonogram demonstrates marked improvement with very tiny residual. Catheter removed. Hemostasis achieved using digital pressure over the puncture site. Band-Aid applied over the puncture site. Impression: Technically successful ultrasound guided abdominal paracentesis for both diagnostic and therapeutic purpose. No immediate complications or blood loss.
[2022-06-13 16:47] LABS: Antinuclear Antiboides, IFA Negative (.); CRP (C-Reative Protein) Quant 13 mg/L (0-10)
[2022-06-13] MEDS: ZOCOR 20MG PO SCH (21:58)
[2022-06-14] MEDS: PIPERACILLIN/TAZOBACTAM 3.375 GM in Sodium Chloride 100ML MINI-BAG PLUS 100 ML IV SCH ×5 (00:09→23:41)
[2022-06-14 05:02] LABS: Absolute Neutrophil Ct (ANC) 10.61 x10^3/uL (1.4-6.9); BASOPHIL % 0.2 % (0.0-0.4); Basophil (Absolute #) 0.03 x10^3/uL (0-0.4); Eosinophil % 0.2 % (0.00-5.0); Eosinophil (Absolute #) 0.03 x10^3/uL (0-0.5); Hematocrit 37.2 % (42-50); Hemoglobin 12.3 g/dL (12.5-18.0); IMMATURE GRAN # 0.11 x10^3u/L (0.00-0.03); IMMATURE GRAN % 0.8 % (0.00-0.4); Lymphocyte (Absolute #) 2.54 x10^3/uL (1.0-4.6); Lymphocytes % 17.9 % (24.0-44.0); Mean Cell Volume 102.8 fL (78-100); Mean Corpuscular Hgb Concent. 33.1 g/dL (32-36); Mean Platelet Volume 10.9 fL (7.5-11.0); Monocyte (Absolute #) 0.86 x10^3/uL (0.0-1.3); Monocytes % 6.1 % (0.0-12.0); NUCLEATED RBC # 0.03 x10^3u/L (0.00-0.01); NUCLEATED RBC % 0.2 % (0.00-0.1); Neutrophil % 74.8 % (36.0-66.0); Platelet Count 210 x10^3/uL (150-450); Red Blood Count 3.62 x10^6/uL (4.1-5.6); Red Cell Distribution Width 14.5 % (11.5-14.0); White Blood Count 14.2 x10^3/uL (4.0-10.5)
[2022-06-14 05:20] LABS: ANION GAP 8.1 MEQ/L (5-15); BLOOD UREA NITROGEN 5 mg/dL (9-20); CHLORIDE 109 mmol/L (98-107); Calcium 6.8 mg/dL (8.4-10.2); Carbon Dioxide 26 mmol/L (22-30); EST GLOMERULAR FILTRATION RATE > 60.0 ML/MIN; Glucose 76 mg/dL (74-106); SODIUM 140 mmol/L (137-145)
[2022-06-14 05:22] LABS: ALBUMIN 2.2 g/dL (3.5-5.0); BILIRUBIN,TOTAL 0.4 mg/dL (0.2-1.3); Total Protein 5.2 g/dL (6.3-8.2)
[2022-06-14 05:33] LABS: Potassium 2.7 mmol/L (3.5-5.1)
[2022-06-14] MEDS: Klor Con PO SCH ×4 (06:35→19:34)
[2022-06-14] MEDS: PATIENT OWN MEDICATION IH SCH (07:08)
[2022-06-14] MEDS: POTASSIUM CHLORIDE 20 mEq IN WATER 100ML 100 ML IV SCH ×2 (07:28→09:50)
--- NOTE | 2022-06-14 07:45 | ECHO ---
Transthoracic echocardiographic examination and color Doppler was done on 06/11/2022. INDICATION: Shortness of breath. IMPRESSION: 1) NO REGIONAL WALL MOTION ABNORMALITY. ESTIMATED GLOBAL LEFT VENTRICULAR EJECTION FRACTION BETWEEN 65 TO 70%. 2) TRACE MITRAL REGURGITATION. 3) LEFT VENTRICLE DIASTOLIC DYSFUNCTION. The left ventricle is visualized and demonstrated adequate motion of all the segments. Estimated global left ventricular ejection fraction around 65 to 70%. The left ventricular thickness is normal. The mitral valve is seen and this opens adequately. There is trace mitral regurgitation. The tissue Doppler study of the lateral mitral annulus is suggestive of left ventricle diastolic dysfunction. The aortic valve opens adequately. There is no significant gradient across the left ventricular outflow tract. The right side chambers are normal.
[2022-06-14] MEDS: SYNTHROID 50 MCG PO SCH (09:17)
[2022-06-14] MEDS: Protonix 40MG Tablet PO SCH ×2 (09:17→21:38)
[2022-06-14] MEDS: Aldactone 25 MG PO SCH (09:17)
[2022-06-14] MEDS: Coreg 3.125 MG PO SCH ×2 (09:18→21:38)
[2022-06-14] MEDS: NORVASC 5 MG PO SCH (09:18)
[2022-06-14] MEDS: ENOXAPARIN SODIUM SQ SCH (09:19)
[2022-06-14] MEDS: Lasix 40 MG/4 ML IV SCH (09:19)
[2022-06-14] MEDS: Sodium Chloride 0.9% 1000 ML 1,000 ML IV SCH (10:33)
--- NOTE | 2022-06-14 12:34 | PCM.DS ---
Discharge Summary Date of Admission: 06/11/22 15:15 Admitting Physician: SAUL DOUGLAS Primary Care Provider: ADELIA STINSON Allergies Allergies codeine Adverse Reaction (Mild, Verified 05/03/22 10:28) Nausea states "i can take it , it just bothers my stomach" Hospital Summary - Hospital Course Hospital Course: Pt is a 67 yo male pt of mine with PMHx COPD, cirrhosis, CAD, HTN, GERD, hyperlipidemia, hypothyroidism, EtOH abuse, and TOB dependence who was admitted through ER with weaknessc, ALEGRIA, and what was thought to be LLL pneumonia. His WBC were elevated to 12.5. He was started on IV zithromax and rocephin. After admission, it was noted that his abdomen was distended (he has recent dx of cirrhosis). CT showed new anasarca and increased ascites. Pt had nitrites in the urine but UCx was negative. Thought to have possibly had urinary retention, but his bladder scan showed neg postvoid residual. His WBC increased to 20,000. He was initially put on IV steroids for his breathing, but he was not wheezing and on room air so the steroids were discon tinued. He was started on po lasix and spironolactone; has had low potassium several times. Will send home on 20mg lasix po daily with 50mg spironolactone and potassium; recheck BMP in 3 days. He was changed from rocephin/zithromax to IV zosyn when his WBC did not diminish. He will be sent home on 3 more days of po augmentin. He had paracentesis yesterday and 2.5L of clear fluid was removed. Cell counts, LDH, and albumin are pending. He has been on CIUT protocol here, as initially RN reported to me his last drink had been several days ago. He tells me he stopped drinking EtOH several weeks ago, but when I told him "NO" alcohol is a safe level for him to drink, he said that "that's going to be hard." - Vitals & Intake/Output Vital Signs: Vital Signs Temperature 96.8 F 06/14/22 12:00 Pulse Rate 89 06/14/22 12:00 Respiratory Rate 16 06/14/22 12:00 Blood Pressure 104/69 06/14/22 12:00 O2 Sat by Pulse Oximetry 94 L 06/14/22 12:00 Intake & Output: Intake & Output 06/12/22 06/13/22 06/14/22 06/15/22 11:59 11:59 11:59 11:59 Intake Total 2649 2567 3410 Output Total 661 322 7231 Balance 1699 1967 159 Weight 60 kg 59.9 kg 58.2 kg - Lab Result Diagrams: 06/14/22 04:30 06/14/22 04:30 Lab Results-Last 24 Hrs: Lab Results-Last 24 Hours 06/11/22 06/13/22 06/14/22 Range/Units 16:00 13:20 04:30 Specimen Type PERITONEAL WBC 14.2 H (4.0-10.5) x10^3/uL RBC 3.62 L (4.1-5.6) x10^6/uL Hgb 12.3 L (12.5-18.0) g/dL Hct 37.2 L (42-50) % MCV 102.8 H (78-100) fL MCH 34.0 H (26-32) pg MCHC 33.1 (32-36) g/dL RDW 14.5 H (11.5-14.0) % Plt Count 210 (150-450) x10^3/uL MPV 10.9 (7.5-11.0) fL Gran % 74.8 H (36.0-66.0) % Immature Gran % (Auto) 0.8 H (0.00-0.4) % Nucleat RBC Rel Count 0.2 H (0.00-0.1) % Eos # (Auto) 0.03 (0-0.5) x10^3/uL Immature Gran # (Auto) 0.11 H (0.00-0.03) x10^3u/L Absolute Lymphs (auto) 2.54 (1.0-4.6) x10^3/uL Absolute Monos (auto) 0.86 (0.0-1.3) x10^3/uL Absolute Nucleated RBC 0.03 H (0.00-0.01) x10^3u/L Lymphocytes % 17.9 L (24.0-44.0) % Monocytes % 6.1 (0.0-12.0) % Eosinophils % 0.2 (0.00-5.0) % Basophils % 0.2 (0.0-0.4) % Absolute Granulocytes 10.61 H (1.4-6.9) x10^3/uL Basophils # 0.03 (0-0.4) x10^3/uL Sodium (137-145) mmol/L Potassium (3.5-5.1) mmol/L Chloride (98-107) mmol/L Carbon Dioxide (22-30) mmol/L Anion Gap (5-15) MEQ/L BUN (9-20) mg/dL Creatinine (0.66-1.25) mg/dL Estimated GFR ML/MIN Glucose (74-106) mg/dL Calcium (8.4-10.2) mg/dL Magnesium (1.6-2.3) mg/dL Total Bilirubin (0.2-1.3) mg/dL Direct Bilirubin (0.0-0.4) mg/dL AST (17-59) U/L ALT (0-50) U/L Alkaline Phosphatase (38-126) U/L C-Reactive Prot, Quant 13 H (0-10) mg/L Serum Total Protein (6.3-8.2) g/dL Albumin (3.5-5.0) g/dL Fluid Color COLORLESS (COLORLESS) Fluid Clarity CLEAR (CLEAR) Fluid WBC (Auto) 0.213 x10^3u/L Fluid RBC (Auto) 0.001 x10^6u/L Fld Polynuclear WBCs % 53.500 % Fl Mononuclear % Auto 46.500 % JOVANI Titer Negative (.) Complement C3 114 (82-167) mg/dL 06/14/22 06/14/22 06/14/22 Range/Units 04:30 04:30 05:34 Specimen Type WBC (4.0-10.5) x10^3/uL RBC (4.1-5.6) x10^6/uL Hgb (12.5-18.0) g/dL Hct (42-50) % MCV (78-100) fL MCH (26-32) pg MCHC (32-36) g/dL RDW (11.5-14.0) % Plt Count (150-450) x10^3/uL MPV (7.5-11.0) fL Gran % (36.0-66.0) % Immature Gran % (Auto) (0.00-0.4) % Nucleat RBC Rel Count (0.00-0.1) % Eos # (Auto) (0-0.5) x10^3/uL Immature Gran # (Auto) (0.00-0.03) x10^3u/L Absolute Lymphs (auto) (1.0-4.6) x10^3/uL Absolute Monos (auto) (0.0-1.3) x10^3/uL Absolute Nucleated RBC (0.00-0.01) x10^3u/L Lymphocytes % (24.0-44.0) % Monocytes % (0.0-12.0) % Eosinophils % (0.00-5.0) % Basophils % (0.0-0.4) % Absolute Granulocytes (1.4-6.9) x10^3/uL Basophils # (0-0.4) x10^3/uL Sodium 140 (137-145) mmol/L Potassium 2.7 L* (3.5-5.1) mmol/L Chloride 109 H (98-107) mmol/L Carbon Dioxide 26 (22-30) mmol/L Anion Gap 8.1 (5-15) MEQ/L BUN 5 L (9-20) mg/dL Creatinine 0.60 L (0.66-1.25) mg/dL Estimated GFR > 60.0 ML/MIN Glucose 76 (74-106) mg/dL Calcium 6.8 L (8.4-10.2) mg/dL Magnesium 1.5 L (1.6-2.3) mg/dL Total Bilirubin 0.40 (0.2-1.3) mg/dL Direct Bilirubin 0 (0.0-0.4) mg/dL AST 55 (17-59) U/L ALT 29 (0-50) U/L Alkaline Phosphatase 134 H (38-126) U/L C-Reactive Prot, Quant (0-10) mg/L Serum Total Protein 5.2 L (6.3-8.2) g/dL Albumin 2.2 L (3.5-5.0) g/dL Fluid Color (COLORLESS) Fluid Clarity (CLEAR) Fluid WBC (Auto) x10^3u/L Fluid RBC (Auto) x10^6u/L Fld Polynuclear WBCs % % Fl Mononuclear % Auto % JOVANI Titer (.) Complement C3 (82-167) mg/dL Micro Results-Entire Visit: Microbiology 06/10/22 06:15 Urine Culture - Final Urine, Void NO GROWTH - Radiology Exams Ordered Rad Exams-Entire Visit: Radiology Procedures Category Date Time Status ABDOMINAL PARACENTESIS [US] Urgent Exams 06/13/22 07:58 Completed BLADDER [US] Routine Exams 06/12/22 12:08 Completed CHEST 1 VIEW (PORTABLE) Routine Exams 06/12/22 12:07 Completed - Procedures and Test Procedures and Tests throughout Hospitalization: Therapy Orders & Screens 06/09/22 19:00 Incentive Spirometry UD Comment: Diagnosis: left lower lobe pneumonia Respiratory Therapy Assessment DAILY Comment: Diagnosis: left lower lobe pneumonia 06/10/22 07:00 Respiratory MDI QAM Comment: Diagnosis: left lower lobe pneumonia 06/11/22 09:08 PT Eval & Treat (MD Order) ONCE Reason for Eval:: weakness Diagnosis: weakness and shortness of breath Discharge Exam General Appearance: no apparent distress, alert Neurologic Exam: oriented x 3, cooperative Eye Exam: eyes nml inspection Ears, Nose, Throat Exam: moist mucous membranes Neck Exam: normal inspection Respiratory Exam: lungs clear, diminished breath sounds (good air exchange), No crackles/rales, No rhonchi, No wheezing Cardiovascular Exam: regular rate/rhythm, normal heart sounds, No murmur Gastrointestinal/Abdomen Exam: soft, normal bowel sounds, No tenderness, No mass, No guarding, No rebound Extremity Exam: normal inspection, No pedal edema, No swelling Final Diagnosis/Problem List - Final Discharge Diagnosis/Problem (1) Left lower lobe pneumonia Current Visit: Yes Status: Acute Assessment & Plan: Possible. He did have elevated WBC with L shift and that's much improved today. Is on syn day #4. Code(s): J18.9 - PNEUMONIA, UNSPECIFIED ORGANISM (2) Weakness Current Visit: Yes Status: Acute Assessment & Plan: improved. Outpt PT after discharge. Pt lives with family. Code(s): R53.1 - WEAKNESS (3) Cirrhosis Current Visit: Yes Status: Chronic Assessment & Plan: He will see GI outpatient next month. Results of paracentesis are pending. (4) Ascites Current Visit: Yes Status: Chronic Code(s): R18.8 - OTHER ASCITES (5) Anasarca Current Visit: Yes Status: Acute Code(s): R60.1 - GENERALIZED EDEMA (6) Alcohol use disorder Current Visit: Yes Status: Chronic Code(s): F10.90 - ALCOHOL USE, UNSPECIFIED, UNCOMPLICATED (7) UTI (urinary tract infection) Current Visit: Yes Status: Ruled-out Assessment & Plan: Ruled out Code(s): N39.0 - URINARY TRACT INFECTION, SITE NOT SPECIFIED - Discharge Disposition: Home, Self-Care Condition: Stable Prescriptions: New Spironolactone 25 mg [Aldactone 25 MG] 50 mg PO DAILY #30 tablet Diclofenac Sodium 2 gm TP QID PRN PRN PRN Reason: Pain Albuterol/Ipratropium 3ml Neb* [DUONEB 0.5-3 MG/3 ml Neb] 3 ml IH Q4HPRN P RN 10 Days #60 unit PRN Reason: Shortness Of Breath/Wheezing Furosemide 20 mg [Lasix 20 mg] 20 mg PO DAILY #30 tablet Potassium Chloride 20 meq PO BID #60 tablet Diazepam 5 mg [Valium 5 MG] 5 mg PO TID PRN 14 Days #42 tablet PRN Reason: Anxiety Continue Carvedilol 3.125 mg [Coreg 3.125 MG] 3.125 mg PO BID Omeprazole Magnesium [Prilosec Otc] 20 mg PO BID #60 tablet. Levothyroxine Sodium 25 Mcg [Synthroid 25 Mcg] 50 mcg PO DAILY Fluticasone/Umeclidin/Vilanter [Trelegy Ellipta 200-62.5-25] 1 dose IH DAILY Amlodipine Besylate 10 mg PO DAILY Pravastatin Sodium 40 mg PO HS Outpatient Orders: Physical Therapy Eval & Treat Facility: [facility], Location: PHYSICAL THERAPY Additional Instructions: YOUR FIRST APT WITH PHYSICAL THERAPY IS MONDAY JUNE 20, 2022 @ 1 pm. IF YOU NEED TO RESCHEDULE, YOU CAN CALL PHYSICAL THERAPY AT [phone] extension [phone] Follow up with: ADELIA STINSON [Primary Care Provider] -
[2022-06-14 12:47] LABS: Albumin, Body Fluid 0.4 g/dL (Not Estab.); LD, Body Fluid 36 IU/L (.); Protein, Body Fluid 0.8 g/dL (.)
[2022-06-14 13:08] LABS: HBsAg Screen Negative (Negative); HCV Ab Non Reactive (Non Reactive); Hep A Ab, IgM Negative (Negative); Hep B Core Ab, IgM Negative (Negative)
[2022-06-14 19:07] LABS: Clarity, Serous Clear (Clear); Lymphocytes, Serous 8 % (Not Estab.); Macrophages, Serous 66 % (Not Estab.); RBC, Serous Rare /uL (Not Estab.)
[2022-06-14] MEDS ORDERED: Klor Con PO ONE (19:34)
[2022-06-14 19:39] LABS: Color, Serous Straw (.); Eosinophils, Serous 0 % (Not Estab.); Nucleated Cells, Serous 130 /mm3 (0-499)
[2022-06-14] MEDS: ZOCOR 20MG PO SCH (21:38)
[2022-06-15] MEDS: Sodium Chloride 0.9% 1000 ML 1,000 ML IV SCH (03:05)
[2022-06-15] MEDS: PIPERACILLIN/TAZOBACTAM 3.375 GM in Sodium Chloride 100ML MINI-BAG PLUS 100 ML IV SCH ×2 (05:14→11:36)
[2022-06-15 05:20] LABS: Absolute Neutrophil Ct (ANC) 8.72 x10^3/uL (1.4-6.9); BASOPHIL % 0.1 % (0.0-0.4); Basophil (Absolute #) 0.01 x10^3/uL (0-0.4); Eosinophil % 1.6 % (0.00-5.0); Eosinophil (Absolute #) 0.19 x10^3/uL (0-0.5); Hematocrit 32.6 % (42-50); Hemoglobin 10.8 g/dL (12.5-18.0); IMMATURE GRAN # 0.08 x10^3u/L (0.00-0.03); IMMATURE GRAN % 0.7 % (0.00-0.4); Lymphocyte (Absolute #) 1.85 x10^3/uL (1.0-4.6); Lymphocytes % 15.5 % (24.0-44.0); Mean Cell Volume 101.6 fL (78-100); Mean Corpuscular Hemoglobin 33.6 pg (26-32); Mean Corpuscular Hgb Concent. 33.1 g/dL (32-36); Mean Platelet Volume 11.1 fL (7.5-11.0); Monocytes % 9.2 % (0.0-12.0); NUCLEATED RBC # 0.02 x10^3u/L (0.00-0.01); NUCLEATED RBC % 0.2 % (0.00-0.1); Neutrophil % 72.9 % (36.0-66.0); Platelet Count 172 x10^3/uL (150-450); Red Blood Count 3.21 x10^6/uL (4.1-5.6); Red Cell Distribution Width 14.6 % (11.5-14.0)
[2022-06-15 05:34] LABS: ANION GAP 8.6 MEQ/L (5-15); CHLORIDE 112 mmol/L (98-107); Calcium 6.4 mg/dL (8.4-10.2); Carbon Dioxide 22 mmol/L (22-30); Creatinine 1 0.52 mg/dL (0.66-1.25); EST GLOMERULAR FILTRATION RATE > 60.0 ML/MIN; Glucose 78 mg/dL (74-106); Potassium 3.1 mmol/L (3.5-5.1); SODIUM 139 mmol/L (137-145)
[2022-06-15 05:35] LABS: BILIRUBIN,TOTAL 0.3 mg/dL (0.2-1.3); Total Protein 4.9 g/dL (6.3-8.2)
[2022-06-15 05:40] LABS: BLOOD UREA NITROGEN 2 mg/dL (9-20)
[2022-06-15] MEDS: PATIENT OWN MEDICATION IH SCH (06:30)
[2022-06-15 06:50] VITALS: PULSE 80; O2SAT 95
[2022-06-15] MEDS: MAGNESIUM SULF 2 G/50 ML BAG 2 GM/50 ML PIGGYBACK IV SCH ×2 (06:57→08:24)
[2022-06-15] MEDS: Klor Con PO SCH ×5 (06:58→13:06)
--- NOTE | 2022-06-15 08:12 | PCM.DS ---
Discharge Summary Date of Admission: 06/11/22 15:15 Admitting Physician: SAUL DOUGLAS Primary Care Provider: ADELIA STINSON Allergies Allergies codeine Adverse Reaction (Mild, Verified 05/03/22 10:28) Nausea states "i can take it , it just bothers my stomach" Hospital Summary - Hospital Course Hospital Course: Pt is a 67 yo male pt of mine with PMHx COPD, cirrhosis, CAD, HTN, GERD, hyperlipidemia, hypothyroidism, EtOH abuse, and TOB dependence who was admitted through ER with weaknessc, ALEGRIA, and what was thought to be LLL pneumonia. His WBC were elevated to 12.5. He was started on IV zithromax and rocephin. After admission, it was noted that his abdomen was distended (he has recent dx of cirrhosis). CT showed new anasarca and increased ascites. Pt had nitrites in the urine but UCx was negative. Thought to have possibly had urinary retention, but his bladder scan showed neg postvoid residual. His WBC increased to 20,000. He was initially put on IV steroids for his breathing, but he was not wheezing and on room air so the steroids were discon tinued. He was started on po lasix and spironolactone; has had low potassium several times. Will send home on 20mg lasix po daily with 50mg spironolactone daily and potassium 20 mEq BID; recheck BMP tomorrow and in 4 days. He was changed from rocephin/zithromax to IV zosyn when his WBC did not di minish. He will be sent home on 3 more days of po augmentin. WBC are 12,000 this morning. He had paracentesis two days ago and 2.5L of clear fluid was removed. Cell counts, LDH, and albumin are pending. He has been on [facility] protocol here, as initially RN reported to me his last drink had been several days ago. He tells me he stopped drinking EtOH several weeks ago, but when I told him "NO" alcohol is a safe level for him to drink, he said that "that's going to be hard." Will be discharged to home on prn valium as librium can be problematic for the pt to procure; NOT to take with alcohol. - Vitals & Intake/Output Vital Signs: Vital Signs Temperature 97.5 F 04/21/23 06:49 Pulse Rate 80 06/15/22 06:49 Respiratory Rate 17 06/15/22 06:49 Blood Pressure 117/67 06/15/22 06:49 O2 Sat by Pulse Oximetry 95 06/15/22 06:49 Intake & Output: Intake & Output 06/12/22 06/13/22 06/14/22 06/15/22 11:59 11:59 11:59 11:59 Intake Total 2649 2567 3410 2523 Output Total 374 365 9135 1175 Balance 1699 0487 761 3756 Weight 60 kg 59.9 kg 58.2 kg 58.4 kg - Lab Result Diagrams: 06/15/22 04:38 06/15/22 04:38 Lab Results-Last 24 Hrs: Lab Results-Last 24 Hours 06/13/22 06/13/22 06/14/22 Range/Units 12:02 13:20 12:30 WBC (4.0-10.5) x10^3/uL RBC (4.1-5.6) x10^6/uL Hgb (12.5-18.0) g/dL Hct (42-50) % MCV (78-100) fL MCH (26-32) pg MCHC (32-36) g/dL RDW (11.5-14.0) % Plt Count (150-450) x10^3/uL MPV (7.5-11.0) fL Gran % (36.0-66.0) % Immature Gran % (Auto) (0.00-0.4) % Nucleat RBC Rel Count (0.00-0.1) % Eos # (Auto) (0-0.5) x10^3/uL Immature Gran # (Auto) (0.00-0.03) x10^3u/L Absolute Lymphs (auto) (1.0-4.6) x10^3/uL Absolute Monos (auto) (0.0-1.3) x10^3/uL Absolute Nucleated RBC (0.00-0.01) x10^3u/L Lymphocytes % (24.0-44.0) % Monocytes % (0.0-12.0) % Eosinophils % (0.00-5.0) % Basophils % (0.0-0.4) % Absolute Granulocytes (1.4-6.9) x10^3/uL Basophils # (0-0.4) x10^3/uL Sodium (137-145) mmol/L Potassium 3.7 D (3.5-5.1) mmol/L Chloride (98-107) mmol/L Carbon Dioxide (22-30) mmol/L Anion Gap (5-15) MEQ/L BUN (9-20) mg/dL Creatinine (0.66-1.25) mg/dL Estimated GFR ML/MIN Glucose (74-106) mg/dL Calcium (8.4-10.2) mg/dL Magnesium (1.6-2.3) mg/dL Total Bilirubin (0.2-1.3) mg/dL Direct Bilirubin (0.0-0.4) mg/dL AST (17-59) U/L ALT (0-50) U/L Alkaline Phosphatase (38-126) U/L Serum Total Protein (6.3-8.2) g/dL Albumin (3.5-5.0) g/dL Fluid Color Straw (.) Fluid Clarity Clear (Clear) Fluid RBC Rare (Not Estab.) /uL Fluid Nucleated Cells 130 (0-499) /mm3 Fluid Lymphocytes 8 (Not Estab.) % Fluid Eosinophils 0 (Not Estab.) % Fl Polymorphonucl Cell 26 H (0-24) % Fluid Macrophages 66 (Not Estab.) % Fluid Lining Cell TNP Fluid Total Protein 0.8 (.) g/dL Fluid Albumin 0.4 (Not Estab.) g/dL Fluid LDH 36 (.) IU/L Fluid Comment TNP Hepatitis A IgM Ab Negative (Negative) Hep Bs Antigen Negative (Negative) Hep B Core IgM Ab Negative (Negative) Hep C Ab Signal/Cutoff Non Reactive (Non Reactive) Hepatitis C Interp Comment (.) 06/14/22 06/14/22 06/15/22 Range/Units 14:08 22:50 04:38 WBC 12.0 H (4.0-10.5) x10^3/uL RBC 3.21 L (4.1-5.6) x10^6/uL Hgb 10.8 L (12.5-18.0) g/dL Hct 32.6 L (42-50) % MCV 101.6 H (78-100) fL MCH 33.6 H (26-32) pg MCHC 33.1 (32-36) g/dL RDW 14.6 H (11.5-14.0) % Plt Count 172 (150-450) x10^3/uL MPV 11.1 H (7.5-11.0) fL Gran % 72.9 H (36.0-66.0) % Immature Gran % (Auto) 0.7 H (0.00-0.4) % Nucleat RBC Rel Count 0.2 H (0.00-0.1) % Eos # (Auto) 0.19 (0-0.5) x10^3/uL Immature Gran # (Auto) 0.08 H (0.00-0.03) x10^3u/L Absolute Lymphs (auto) 1.85 (1.0-4.6) x10^3/uL Absolute Monos (auto) 1.10 (0.0-1.3) x10^3/uL Absolute Nucleated RBC 0.02 H (0.00-0.01) x10^3u/L Lymphocytes % 15.5 L (24.0-44.0) % Monocytes % 9.2 (0.0-12.0) % Eosinophils % 1.6 (0.00-5.0) % Basophils % 0.1 (0.0-0.4) % Absolute Granulocytes 8.72 H (1.4-6.9) x10^3/uL Basophils # 0.01 (0-0.4) x10^3/uL Sodium (137-145) mmol/L Potassium 3.1 L 4.2 D (3.5-5.1) mmol/L Chloride (98-107) mmol/L Carbon Dioxide (22-30) mmol/L Anion Gap (5-15) MEQ/L BUN (9-20) mg/dL Creatinine (0.66-1.25) mg/dL Estimated GFR ML/MIN Glucose (74-106) mg/dL Calcium (8.4-10.2) mg/dL Magnesium (1.6-2.3) mg/dL Total Bilirubin (0.2-1.3) mg/dL Direct Bilirubin (0.0-0.4) mg/dL AST (17-59) U/L ALT (0-50) U/L Alkaline Phosphatase (38-126) U/L Serum Total Protein (6.3-8.2) g/dL Albumin (3.5-5.0) g/dL Fluid Color (.) Fluid Clarity (Clear) Fluid RBC (Not Estab.) /uL Fluid Nucleated Cells (0-499) /mm3 Fluid Lymphocytes (Not Estab.) % Fluid Eosinophils (Not Estab.) % Fl Polymorphonucl Cell (0-24) % Fluid Macrophages (Not Estab.) % Fluid Lining Cell Fluid Total Protein (.) g/dL Fluid Albumin (Not Estab.) g/dL Fluid LDH (.) IU/L Fluid Comment Hepatitis A IgM Ab (Negative) Hep Bs Antigen (Negative) Hep B Core IgM Ab (Negative) Hep C Ab Signal/Cutoff (Non Reactive) Hepatitis C Interp (.) 06/15/22 06/15/22 06/15/22 Range/Units 04:38 04:38 04:38 WBC (4.0-10.5) x10^3/uL RBC (4.1-5.6) x10^6/uL Hgb (12.5-18.0) g/dL Hct (42-50) % MCV (78-100) fL MCH (26-32) pg MCHC (32-36) g/dL RDW (11.5-14.0) % Plt Count (150-450) x10^3/uL MPV (7.5-11.0) fL Gran % (36.0-66.0) % Immature Gran % (Auto) (0.00-0.4) % Nucleat RBC Rel Count (0.00-0.1) % Eos # (Auto) (0-0.5) x10^3/uL Immature Gran # (Auto) (0.00-0.03) x10^3u/L Absolute Lymphs (auto) (1.0-4.6) x10^3/uL Absolute Monos (auto) (0.0-1.3) x10^3/uL Absolute Nucleated RBC (0.00-0.01) x10^3u/L Lymphocytes % (24.0-44.0) % Monocytes % (0.0-12.0) % Eosinophils % (0.00-5.0) % Basophils % (0.0-0.4) % Absolute Granulocytes (1.4-6.9) x10^3/uL Basophils # (0-0.4) x10^3/uL Sodium 139 (137-145) mmol/L Potassium 3.1 L D (3.5-5.1) mmol/L Chloride 112 H (98-107) mmol/L Carbon Dioxide 22 (22-30) mmol/L Anion Gap 8.6 (5-15) MEQ/L BUN 2 L (9-20) mg/dL Creatinine 0.52 L (0.66-1.25) mg/dL Estimated GFR > 60.0 ML/MIN Glucose 78 (74-106) mg/dL Calcium 6.4 L (8.4-10.2) mg/dL Magnesium 1.2 L (1.6-2.3) mg/dL Total Bilirubin 0.30 (0.2-1.3) mg/dL Direct Bilirubin 0 (0.0-0.4) mg/dL AST 45 (17-59) U/L ALT 27 (0-50) U/L Alkaline Phosphatase 104 (38-126) U/L Serum Total Protein 4.9 L (6.3-8.2) g/dL Albumin 2.0 L (3.5-5.0) g/dL Fluid Color (.) Fluid Clarity (Clear) Fluid RBC (Not Estab.) /uL Fluid Nucleated Cells (0-499) /mm3 Fluid Lymphocytes (Not Estab.) % Fluid Eosinophils (Not Estab.) % Fl Polymorphonucl Cell (0-24) % Fluid Macrophages (Not Estab.) % Fluid Lining Cell Fluid Total Protein (.) g/dL Fluid Albumin (Not Estab.) g/dL Fluid LDH (.) IU/L Fluid Comment Hepatitis A IgM Ab (Negative) Hep Bs Antigen (Negative) Hep B Core IgM Ab (Negative) Hep C Ab Signal/Cutoff (Non Reactive) Hepatitis C Interp (.) Micro Results-Entire Visit: Microbiology 06/13/22 13:20 Gram Stain - Final Body Fluid - Not Known Gram Stain Result 1 - Final Gram Stain Result 2 - Final 06/10/22 06:15 Urine Culture - Final Urine, Void NO GROWTH - Radiology Exams Ordered Rad Exams-Entire Visit: Radiology Procedures Category Date Time Status ABDOMINAL PARACENTESIS [US] Urgent Exams 06/13/22 07:58 Completed - Procedures and Test Procedures and Tests throughout Hospitalization: Therapy Orders & Screens 06/09/22 19:00 Incentive Spirometry UD Comment: Diagnosis: left lower lobe pneumonia Respiratory Therapy Assessment DAILY Comment: Diagnosis: left lower lobe pneumonia 06/10/22 07:00 Respiratory MDI QAM Comment: Diagnosis: left lower lobe pneumonia 06/11/22 09:08 PT Eval & Treat (MD Order) ONCE Reason for Eval:: weakness Diagnosis: weakness and shortness of breath Discharge Exam General Appearance: no apparent distress, thin Neurologic Exam: alert, oriented x 3, cooperative Eye Exam: eyes nml inspection Ears, Nose, Throat Exam: moist mucous membranes Respiratory Exam: lungs clear, diminished breath sounds (good air exchange), No crackles/rales, No rhonchi, No wheezing Cardiovascular Exam: regular rate/rhythm, normal heart sounds, No murmur Gastrointestinal/Abdomen Exam: soft, distention (mild), No normal bowel sounds (hyperactive), No tenderness, No mass, No guarding, No rebound Back Exam: normal inspection, No rash Extremity Exam: normal inspection, No pedal edema, No swelling Skin Exam: normal color, warm, dry, No rash Final Diagnosis/Problem List - Final Discharge Diagnosis/Problem (1) Left lower lobe pneumonia Current Visit: Yes Status: Acute Assessment & Plan: Possibly; finish course of augmentin Code(s): J18.9 - PNEUMONIA, UNSPECIFIED ORGANISM (2) Weakness Current Visit: Yes Status: Acute Assessment & Plan: Outpt PT Code(s): R53.1 - WEAKNESS (3) Cirrhosis Current Visit: Yes Status: Chronic (4) Ascites Current Visit: Yes Status: Chronic Assessment & Plan: Diagnostic and therapeutic paracentesis was done and cell counts are pending. Code(s): R18.8 - OTHER ASCITES (5) Anasarca Current Visit: Yes Status: Acute Code(s): R60.1 - GENERALIZED EDEMA (6) Alcohol use disorder Current Visit: Yes Status: Chronic Assessment & Plan: home on valium to assist with cessation. Vitals stable here throughout. Code(s): F10.90 - ALCOHOL USE, UNSPECIFIED, UNCOMPLICATED (7) UTI (urinary tract infection) Current Visit: Yes Status: Ruled-out Code(s): N39.0 - URINARY TRACT INFECTION, SITE NOT SPECIFIED (8) Total bilirubin, elevated Current Visit: Yes Status: Acute Assessment & Plan: chronic Code(s): R17 - UNSPECIFIED JAUNDICE (9) Hypokalemia Current Visit: Yes Status: Acute Assessment & Plan: Pt was started on IV lasix without po potassium as we also started po spironolactone. He has been consistently low; decreasing lasix dose at home but will start on po potassium. It has been impressed on him that it's very i mportant to return to hospital for blood draw tomorrow to check potassium and Mg (if unable to do that, would not be discharging him to home). Recheck again 4d after that. Code(s): E87.6 - HYPOKALEMIA (10) Hypomagnesemia Current Visit: Yes Status: Acute Assessment & Plan: Home on Mg Ox 400mg po daily. Code(s): E83.42 - HYPOMAGNESEMIA - Discharge Disposition: Home, Self-Care Condition: Stable Prescriptions: New Spironolactone 25 mg [Aldactone 25 MG] 50 mg PO DAILY #30 tablet Diclofenac Sodium 2 gm TP QID PRN PRN PRN Reason: Pain Albuterol/Ipratropium 3ml Neb* [DUONEB 0.5-3 MG/3 ml Neb] 3 ml IH Q4HPRN PRN 10 Days #60 unit PRN Reason: Shortness Of Breath/Wheezing Furosemide 20 mg [Lasix 20 mg] 20 mg PO DAILY #30 tablet Potassium Chloride 20 meq PO BID #60 tablet Diazepam 5 mg [Valium 5 MG] 5 mg PO TID PRN 14 Days #42 tablet PRN Reason: Anxiety Lactobacillus Acidophilus [Acidophilus TABLET] 1 tab PO BID 5 Days #10 tablet Magnesium Oxide 400 mg [Mag-Ox 400] 400 mg PO DAILY #30 tablet Continue Carvedilol 3.125 mg [Coreg 3.125 MG] 3.125 mg PO BID Omeprazole Magnesium [Prilosec Otc] 20 mg PO BID #60 tablet. Levothyroxine Sodium 25 Mcg [Synthroid 25 Mcg] 50 mcg PO DAILY Fluticasone/Umeclidin/Vilanter [Trelegy Ellipta 200-62.5-25] 1 dose IH DAILY Amlodipine Besylate 10 mg PO DAILY Pravastatin Sodium 40 mg PO HS Outpatient Orders: BMP Facility: [facility]. Hosp, Location: LABORATORY BMP Time Frame: 4 Days, Facility: [facility] Hosp, Location: LABORATORY MAGNESIUM Time Frame: 1 Day, Facility: [facility] Hosp, Location: LABORATORY Physical Therapy Eval & Treat Facility: [facility]. Hosp, Location: PHYSICAL THERAPY Additional Instructions: YOUR FIRST APT WITH PHYSICAL THERAPY IS MONDAY JUNE 20, 2022 @ 1 pm. IF YOU NEED TO RESCHEDULE, YOU CAN CALL PHYSICAL THERAPY AT [phone] Follow up with: ADELIA STINSON [Primary Care Provider] -
[2022-06-15] MEDS: SYNTHROID 50 MCG PO SCH (08:25)
[2022-06-15] MEDS: ENOXAPARIN SODIUM SQ SCH (08:25)
[2022-06-15] MEDS: NORVASC 5 MG PO SCH (08:25)
[2022-06-15] MEDS: Coreg 3.125 MG PO SCH (08:25)
[2022-06-15] MEDS: Aldactone 25 MG PO SCH (08:25)
[2022-06-15] MEDS: Protonix 40MG Tablet PO SCH (08:25)
[2022-06-15] MEDS ORDERED: LASIX 20 MG PO SCH (10:00)
[2022-06-15] MEDS ORDERED: MAG-OX 400 PO SCH (10:00)
[2022-06-15 11:32] VITALS: BP 111/72
[2022-06-15] MEDS ORDERED: Klor Con PO SCH (22:00)
== END 2022-06-15 15:48 | disposition home or self-care (01) | DRG 194 ==
LOC: ED 15:47 → MED SURG 18:05 → OBSVTOIN 06-11 15:15
PROVIDERS: ADMIT General Practice; ATTEND Family Medicine
DX: J18.9 Pneumonia, unspecified organism (principal); N39.0 Urinary tract infection, site not specified; R53.1 Weakness; K70.31 Alcoholic cirrhosis of liver with ascites; R60.1 Generalized edema; F10.90 Alcohol use, unspecified, uncomplicated; I10 Essential (primary) hypertension; I25.10 Atherosclerotic heart disease of native coronary artery without angina pectoris; E78.5 Hyperlipidemia, unspecified; J44.9 Chronic obstructive pulmonary disease, unspecified; E03.9 Hypothyroidism, unspecified; R14.0 Abdominal distension (gaseous); R39.89 Other symptoms and signs involving the genitourinary system; Z79.899 Other long term (current) drug therapy; Z20.828 Contact with and (suspected) exposure to other viral communicable diseases; Z87.891 Personal history of nicotine dependence
CPT/HCPCS: 0241U; 36000; 36415; 49083; 71045; 71046; 74176; 76705; 80048; 80053; 80074; 80076; 81001; 82042; 82140; 82150; 82728; 83615; 83690; 83735; 83880; 84132; 84145; 84157; 84484; 85025; 85027; 85610; 85652; 85730; 86038; 86140; 86160; 87070; 87075; 87086; 87205; 89051; 93005; 93041; 93306; 94640; 94760; 96360; 97161; 97530; 99285; 99291; G0378; J0456; J0696; J1650; J1940; J2930; J3480; A9270-GY; J3475

== ENCOUNTER 2022-06-20 12:48 | Observation (INO) | payer MEDICARE ==
--- NOTE | 2022-06-20 14:18 | ERPHSYRPT ---
- History of Present Illness Time Seen by Provider: 06/20/22 14:23 Exam Limitations: no limitations Patient Subjective Stated Complaint: PT states "I had a procedure done here last week and I was told that if my belly started to swell or I had pain to come back." Triage Nursing Assessment: Pt presented alert and oriented X 3, skin pwd. pt ambulates with a slow gait, pt abdomen distended and firm. abdomen tender in all quadrants. Physician History: Patient is a 67-year-old male with a history of cirrhosis and recurrent ascites presents to our ED today for abdominal distention. Patient's ascites was drained approximately 5 days ago. Patient was advised to come to our ED if he reaccumulated ascitic fluid. Patient is here due to reaccumulation and is requesting we drained his abdomen. No other complaints. No chest pain or shortness of breath. No nausea vomiting diaphoresis. No fever. Symptoms are mild to moderate in intensity. No specific worsening improving factors. Patient voices no other complaints or concerns at this time. Portions of this note were created with voice recognition technology. There may be grammatical, spelling, punctuation or sound alike errors Timing/Duration: today Severity: moderate Modifying Factors: Improves With: nothing Associated Symptoms: denies symptoms Allergies/Adverse Reactions: codeine Adverse Reaction (Mild, Verified 05/03/22 10:28) Nausea states "i can take it , it just bothers my stomach" Home Medications: Carvedilol 3.125 mg [Coreg 3.125 MG] 3.125 mg PO BID 10/03/18 [History] Levothyroxine Sodium 25 Mcg [Synthroid 25 Mcg] 50 mcg PO DAILY 05/03/22 [History] Amlodipine Besylate 10 mg PO DAILY 06/09/22 [History] Fluticasone/Umeclidin/Vilanter [Trelegy Ellipta 200-62.5-25] 1 dose IH DAILY 06/09/22 [History] Pravastatin Sodium 40 mg PO HS 06/09/22 [History] Hx Tetanus, Diphtheria Vaccination/Date Given: No Hx Influenza Vaccination/Date Given: No Hx Pneumococcal Vaccination/Date Given: No Immunizations Up to Date: Yes Travel Risk - International Travel Have you traveled outside of the country in past 3 weeks: No - Coronavirus Screening Are you exhibiting any of the following symptoms?: No Close contact with a COVID-19 positive Pt in past 14-21 Days: No - Vaccine Status Have you recieved a Covid-19 vaccination: No - Review of Systems Constitutional: No Symptoms, No Fever, No Chills Eyes: No Symptoms Ears, Nose, & Throat: No Symptoms Respiratory: No Symptoms, No Cough, No Dyspnea Cardiac: No Symptoms, No Chest Pain, No Edema, No Syncope Abdominal/Gastrointestinal: No Symptoms, No Abdominal Pain, No Nausea, No Vomiting, No Diarrhea Genitourinary Symptoms: No Symptoms, No Dysuria Musculoskeletal: No Symptoms, No Back Pain, No Neck Pain Skin: No Symptoms, No Rash Neurological: No Symptoms, No Dizziness, No Focal Weakness, No Sensory Changes Psychological: No Symptoms Endocrine: No Symptoms Hematologic/Lymphatic: No Symptoms Immunological/Allergic: No Symptoms All Other Systems: Reviewed and Negative - Past Medical History Pertinent Past Medical History: Yes Neurological History: Migraines ENT History: Cataracts Cardiac History: Angina, High Cholesterol, Hypertension Respiratory History: COPD Endocrine Medical History: No Pertinent History Musculoskeletal History: Arthritis GI Medical History: Other History: No Pertinent History Psycho-Social History: No Pertinent History Male Reproductive Disorders: No Pertinent History Other Medical History: states bharat. cataract surgery,"feel like something is sut ck in my upper chest all the time" " sometimes i just get out of breath" - Past Surgical History Past Surgical History: Yes Neuro Surgical History: No Pertinent History Cardiac: Cardiac Catheterization Respiratory: No Pertinent History Gastrointestinal: Appendectomy Genitourinary: No Pertinent History Musculoskeletal: No Pertinent History Male Surgical History: No Pertinent History Other Surgical History: bilateral cataract with IOL implant , heart cath " less than a yr ago" " no stent because it was about 60% open for now" - Social History Smoking Status: Former smoker How long have you smoked: 50 yrs Exposure to second hand smoke: Yes Drug Use: none Patient Lives Alone: No - Nursing Vital Signs Nursing Vital Signs: Initial Vital Signs Temperature 96.8 F 06/20/22 12:49 Pulse Rate 102 H 06/20/22 12:49 Respiratory Rate 20 06/20/22 12:49 Blood Pressure 114/80 06/20/22 12:49 O2 Sat by Pulse Oximetry 98 06/20/22 12:49 Pain Scale Pain Intensity 4 - Physical Exam General Appearance: no apparent distress, alert Eye Exam: PERRL/EOMI, eyes nml inspection Ears, Nose, Throat Exam: normal ENT inspection, TMs normal, pharynx normal, moist mucous membranes Neck Exam: normal inspection, non-tender, supple, full range of motion Respiratory Exam: normal breath sounds, lungs clear, No respiratory distress Cardiovascular Exam: regular rate/rhythm, normal heart sounds, normal peripheral pulses Gastrointestinal/Abdomen Exam: soft, normal bowel sounds, other (Distended abdomen with a fluid wave), No tenderness, No mass Back Exam: normal inspection, normal range of motion, No CVA tenderness, No vertebral tenderness Extremity Exam: normal inspection, normal range of motion, pelvis stable Neurologic Exam: alert, oriented x 3, cooperative, normal mood/affect, nml cerebellar function, nml station & gait, sensation nml, No motor deficits Skin Exam: normal color, warm, dry, No rash Lymphatic Exam: No adenopathy SpO2 Interpretation: normal SpO2: 99 O2 Delivery: Room Air - Course Nursing assessment & vital signs reviewed: Yes - Radiology Ultrasound Exam Abdomen Ultrasound: tele radiology report (Findings consistent with mild to moderate abdominal ascites) Ordered Tests: Active Orders 24 hr Category Date Time Status Telemetry q4h Care 06/20/22 18:36 Active ABDOMINAL-LIMITED [US] Stat Exams 06/20/22 14:51 Completed CBC W DIFF Stat Lab 06/20/22 17:40 Completed CMP Stat Lab 06/20/22 17:30 Completed PROTIME WITH INR Stat Lab 06/20/22 13:30 Completed PTT Stat Lab 06/20/22 13:30 Completed TROPONIN Q4H Lab 06/20/22 17:30 Completed TROPONIN Q4H Lab 06/20/22 21:45 Ordered TROPONIN Q4H Lab 06/21/22 01:45 Ordered Transfer Order Routine Transfer 06/20/22 Ordered Medication Summary Generic Name Dose Route Start Last Admin Trade Name Freq PRN Reason Stop Dose Admin Magnesium Sulfate/Dextrose 100 mls @ 100 mls/hr 06/20/22 18:45 06/20/22 19:13 Magnesium 1 Gm / 100 Ml D5w IV 06/20/22 20:44 100 mls/hr Q1H JOE Administration Potassium Chloride 20 meq in 100 mls @ 50 mls/hr 06/20/22 18:45 06/20/22 19:50 Potassium Chloride 20 Meq In Water 100ml IV 06/20/22 22:44 50 mls/hr Q2H JOE Administration Sodium Chloride 1,000 mls @ 100 mls/hr 06/20/22 20:00 06/20/22 19:51 Sodium Chloride 0.9% 1000 Ml IV 07/20/22 19:59 100 mls/hr .Q10H JOE Administration Lab/Rad Data: Laboratory Result Diagrams 06/20/22 17:40 06/20/22 17:30 Laboratory Results 06/20/22 06/20/22 06/20/22 Range/Units 18:45 17:40 17:30 WBC 13.6 H (4.0-10.5) x10^3/uL RBC 3.78 L (4.1-5.6) x10^6/uL Hgb 12.5 (12.5-18.0) g/dL Hct 39.4 L (42-50) % MCV 104.2 H (78-100) fL MCH 33.1 H (26-32) pg MCHC 31.7 L (32-36) g/dL RDW 14.6 H (11.5-14.0) % Plt Count 370 (150-450) x10^3/uL MPV 9.9 (7.5-11.0) fL Gran % 84.5 H (36.0-66.0) % Immature Gran % (Auto) 0.3 (0.00-0.4) % Nucleat RBC Rel Count 0.0 (0.00-0.1) % Eos # (Auto) 0.08 (0-0.5) x10^3/uL Immature Gran # (Auto) 0.04 H (0.00-0.03) x10^3u/L Absolute Lymphs (auto) 1.02 (1.0-4.6) x10^3/uL Absolute Monos (auto) 0.94 (0.0-1.3) x10^3/uL Absolute Nucleated RBC 0.00 (0.00-0.01) x10^3u/L Lymphocytes % 7.5 L (24.0-44.0) % Monocytes % 6.9 (0.0-12.0) % Eosinophils % 0.6 (0.00-5.0) % Basophils % 0.2 (0.0-0.4) % Absolute Granulocytes 11.45 H (1.4-6.9) x10^3/uL Basophils # 0.03 (0-0.4) x10^3/uL PT (9.4-12.5) SECONDS INR (0.8-3.0) APTT (25.1-36.5) SECONDS Sodium (137-145) mmol/L Potassium (3.5-5.1) mmol/L Chloride (98-107) mmol/L Carbon Dioxide (22-30) mmol/L Anion Gap (5-15) MEQ/L BUN (9-20) mg/dL Creatinine (0.66-1.25) mg/dL Estimated GFR ML/MIN Glucose (74-106) mg/dL Calcium (8.4-10.2) mg/dL Total Bilirubin (0.2-1.3) mg/dL AST (17-59) U/L ALT (0-50) U/L Alkaline Phosphatase (38-126) U/L Troponin I < 0.012 (0.000-0.034) ng/mL Serum Total Protein (6.3-8.2) g/dL Albumin (3.5-5.0) g/dL Influenza Type A Ag NEGATIVE (NEGATIVE) Influenza Type B Ag NEGATIVE (NEGATIVE) RSV (PCR) NEGATIVE (NEGATIVE) SARS-CoV-2 (PCR) NEGATIVE (NEGATIVE) 06/20/22 06/20/22 Range/Units 17:30 13:30 WBC (4.0-10.5) x10^3/uL RBC (4.1-5.6) x10^6/uL Hgb (12.5-18.0) g/dL Hct (42-50) % MCV (78-100) fL MCH (26-32) pg MCHC (32-36) g/dL RDW (11.5-14.0) % Plt Count (150-450) x10^3/uL MPV (7.5-11.0) fL Gran % (36.0-66.0) % Immature Gran % (Auto) (0.00-0.4) % Nucleat RBC Rel Count (0.00-0.1) % Eos # (Auto) (0-0.5) x10^3/uL Immature Gran # (Auto) (0.00-0.03) x10^3u/L Absolute Lymphs (auto) (1.0-4.6) x10^3/uL Absolute Monos (auto) (0.0-1.3) x10^3/uL Absolute Nucleated RBC (0.00-0.01) x10^3u/L Lymphocytes % (24.0-44.0) % Monocytes % (0.0-12.0) % Eosinophils % (0.00-5.0) % Basophils % (0.0-0.4) % Absolute Granulocytes (1.4-6.9) x10^3/uL Basophils # (0-0.4) x10^3/uL PT 10.9 (9.4-12.5) SECONDS INR 1.00 (0.8-3.0) APTT 26.8 (25.1-36.5) SECONDS Sodium 137 (137-145) mmol/L Potassium 3.0 L* (3.5-5.1) mmol/L Chloride 108 H (98-107) mmol/L Carbon Dioxide 22 (22-30) mmol/L Anion Gap 10.6 (5-15) MEQ/L BUN 4 L (9-20) mg/dL Creatinine 0.67 (0.66-1.25) mg/dL Estimated GFR > 60.0 ML/MIN Glucose 87 (74-106) mg/dL Calcium 7.7 L (8.4-10.2) mg/dL Total Bilirubin 0.40 (0.2-1.3) mg/dL AST 39 (17-59) U/L ALT 24 (0-50) U/L Alkaline Phosphatase 119 (38-126) U/L Troponin I (0.000-0.034) ng/mL Serum Total Protein 6.1 L (6.3-8.2) g/dL Albumin 2.5 L (3.5-5.0) g/dL Influenza Type A Ag (NEGATIVE) Influenza Type B Ag (NEGATIVE) RSV (PCR) (NEGATIVE) SARS-CoV-2 (PCR) (NEGATIVE) - Progress Progress: improved Progress Note: Patient reassessed. Patient states he cannot go home as he was too weak. Evaluation reveals hypokalemia 3.0. Patient received magnesium and potassium. Abdominal ultrasound reveals abdominal ascites. COVID-negative. Coagulation profile negative. Coagulation profile ordered as patient has liver pathology and will be undergoing a procedure. Troponin negative. Patient received magnesium potassium and normal saline. Plan of care discussed with patient. He agrees to admission at [facility] for further evaluation and treatment. Case discussed with Dr. Pate hospitalist on-call this evening. Dr. Pate excepts admission. Complexity of problem addressed is moderate. Acute problem with systemic complication. No critical care time Complexity of data reviewed and analyzed is extensive. Patient served as independent historian. Test ordered and analyzed by Dr. Carver. Management discussed with Dr. Pate who accepts admission to observation. Risk of complication and or risk morbidity/mortality patient management is high. Patient will be hospitalized for further evaluation and treatment. Vital stable. Portions of this note were created with voice recognition technology. There may be grammatical, spelling, punctuation or sound alike errors 06/20/22 20:14 Counseled pt/family regarding: lab results, diagnosis, rad results - Departure Departure Disposition: Observation Clinical Impression: Hypokalemia, Generalized weakness, Ascites, Hypocalcemia Condition: Stable Critical Care Time: No Referrals: ADELIA STINSON [Primary Care Provider] - Follow up/PCP as directed
[2022-06-20 14:22] LABS: PROTIME 10.9 SECONDS (9.4-12.5); PTT 26.8 SECONDS (25.1-36.5)
--- NOTE | 2022-06-20 15:27 | XRAY ---
Indication: Pain and distention. Ascites. 4 quadrant abdominal sonogram performed to evaluate ascites. There is mild/moderate ascites in all 4 quadrants, largest pocket in right upper quadrant measuring 6.3 cm. Smallest pocket is right lower quadrant measuring 1.5 cm.
[2022-06-20 17:47] LABS: Absolute Neutrophil Ct (ANC) 11.45 x10^3/uL (1.4-6.9); BASOPHIL % 0.2 % (0.0-0.4); Basophil (Absolute #) 0.03 x10^3/uL (0-0.4); Eosinophil % 0.6 % (0.00-5.0); Eosinophil (Absolute #) 0.08 x10^3/uL (0-0.5); Hematocrit 39.4 % (42-50); Hemoglobin 12.5 g/dL (12.5-18.0); IMMATURE GRAN # 0.04 x10^3u/L (0.00-0.03); IMMATURE GRAN % 0.3 % (0.00-0.4); Lymphocyte (Absolute #) 1.02 x10^3/uL (1.0-4.6); Lymphocytes % 7.5 % (24.0-44.0); Mean Cell Volume 104.2 fL (78-100); Mean Corpuscular Hemoglobin 33.1 pg (26-32); Mean Corpuscular Hgb Concent. 31.7 g/dL (32-36); Mean Platelet Volume 9.9 fL (7.5-11.0); Monocyte (Absolute #) 0.94 x10^3/uL (0.0-1.3); Monocytes % 6.9 % (0.0-12.0); Neutrophil % 84.5 % (36.0-66.0); Platelet Count 370 x10^3/uL (150-450); Red Blood Count 3.78 x10^6/uL (4.1-5.6); Red Cell Distribution Width 14.6 % (11.5-14.0); White Blood Count 13.6 x10^3/uL (4.0-10.5)
[2022-06-20 17:54] LABS: ALBUMIN 2.5 g/dL (3.5-5.0); ALKALINE PHOSPHATASE 119 U/L (38-126); ANION GAP 10.6 MEQ/L (5-15); BLOOD UREA NITROGEN 4 mg/dL (9-20); CHLORIDE 108 mmol/L (98-107); Calcium 7.7 mg/dL (8.4-10.2); Carbon Dioxide 22 mmol/L (22-30); Creatinine 1 0.67 mg/dL (0.66-1.25); EST GLOMERULAR FILTRATION RATE > 60.0 ML/MIN; Glucose 87 mg/dL (74-106); SGOT/AST 39 U/L (17-59); SGPT/ALT 24 U/L (0-50); SODIUM 137 mmol/L (137-145); Total Protein 6.1 g/dL (6.3-8.2)
[2022-06-20] MEDS: Magnesium 1 Gm / 100 Ml D5W*** 100 ML IV SCH ×2 (18:39→19:13)
[2022-06-20] MEDS ORDERED: Magnesium 1 Gm / 100 Ml D5W*** 100 ML IV ONE ×2 (18:39→19:13)
[2022-06-20 19:24] LABS: INFLUENZA A NEGATIVE (NEGATIVE); INFLUENZA B NEGATIVE (NEGATIVE); RESPIRATORY SYNCTIAL VIRUS NEGATIVE (NEGATIVE); SARS-CoV-2 Xpert Express NEGATIVE (NEGATIVE)
[2022-06-20] MEDS: POTASSIUM CHLORIDE 20 mEq IN WATER 100ML 20 MEQ/100 ML BAG IV SCH ×2 (19:50→22:54)
[2022-06-20] MEDS ORDERED: Sodium Chloride 0.9% 1000 ML 1,000 ML IV SCH (20:00)
[2022-06-21 05:36] LABS: Absolute Neutrophil Ct (ANC) 12.33 x10^3/uL (1.4-6.9); BASOPHIL % 0.2 % (0.0-0.4); Basophil (Absolute #) 0.03 x10^3/uL (0-0.4); Eosinophil % 0.8 % (0.00-5.0); Eosinophil (Absolute #) 0.12 x10^3/uL (0-0.5); Hematocrit 34.7 % (42-50); Hemoglobin 11.4 g/dL (12.5-18.0); IMMATURE GRAN # 0.07 x10^3u/L (0.00-0.03); IMMATURE GRAN % 0.5 % (0.00-0.4); Lymphocyte (Absolute #) 1.26 x10^3/uL (1.0-4.6); Lymphocytes % 8.5 % (24.0-44.0); Mean Cell Volume 102.4 fL (78-100); Mean Corpuscular Hemoglobin 33.6 pg (26-32); Mean Corpuscular Hgb Concent. 32.9 g/dL (32-36); Mean Platelet Volume 9.5 fL (7.5-11.0); Monocyte (Absolute #) 0.94 x10^3/uL (0.0-1.3); Monocytes % 6.4 % (0.0-12.0); Neutrophil % 83.6 % (36.0-66.0); Platelet Count 332 x10^3/uL (150-450); Red Blood Count 3.39 x10^6/uL (4.1-5.6); Red Cell Distribution Width 14.7 % (11.5-14.0); White Blood Count 14.8 x10^3/uL (4.0-10.5)
[2022-06-21 05:49] LABS: PROTIME 10.9 SECONDS (9.4-12.5)
[2022-06-21 05:57] LABS: ALBUMIN 2.2 g/dL (3.5-5.0); Glucose 87 mg/dL (74-106); MAGNESIUM 2.4 mg/dL (1.6-2.3); SGOT/AST 27 U/L (17-59); SGPT/ALT 21 U/L (0-50); SODIUM 136 mmol/L (137-145)
[2022-06-21 06:24] LABS: ALKALINE PHOSPHATASE 111 U/L (38-126); ANION GAP 5.8 MEQ/L (5-15); BLOOD UREA NITROGEN 4 mg/dL (9-20); CHLORIDE 109 mmol/L (98-107); Calcium 7.6 mg/dL (8.4-10.2); Carbon Dioxide 24 mmol/L (22-30); Creatinine 1 0.64 mg/dL (0.66-1.25); EST GLOMERULAR FILTRATION RATE > 60.0 ML/MIN; Potassium 3.5 mmol/L (3.5-5.1); Total Protein 5.5 g/dL (6.3-8.2)
[2022-06-21] MEDS ORDERED: Valium 5 MG PO PRN ×2 (06:31→10:05)
[2022-06-21] MEDS ORDERED: DUONEB 0.5-3 MG/3 ml Neb IH SCH (07:00)
--- NOTE | 2022-06-21 07:47 | PCM.HP ---
History of Present Illness - Chief Complaint Chief Complaint: Hypokalemia, generalized weakness, abdominal ascites History of Present Illness: is a 67 year old male patient of Dr Perez with cirrhosis who had a paracentesis last week, his swelling has recurred and he is weak and unable to care for himself. He lives with his elderly father, his legs are weak and he has fecal incontinence. - Review of Systems Constitutional: Weakness, No Fever, No Chills Respiratory: No Cough, No Short Of Breath Cardiac: No Chest Pain, No Edema, No Syncope Abdominal/Gastrointestinal: No Abdominal Pain, No Nausea, No Vomiting, No Diarrhea Skin: No Rash All Other Systems: Reviewed and Negative Medications & Allergies Home Medications: Home Medication List Carvedilol 3.125 mg [Coreg 3.125 MG] 3.125 mg PO BID 10/03/18 [History Confirmed 06/20/22] Omeprazole Magnesium [Prilosec Otc] 20 mg PO BID #60 tablet. 10/07/18 [Rx Confirmed 06/20/22] Levothyroxine Sodium 25 Mcg [Synthroid 25 Mcg] 50 mcg PO DAILY 05/03/22 [History Confirmed 06/20/22] Amlodipine Besylate 10 mg PO DAILY 06/09/22 [History Confirmed 06/20/22] Fluticasone/Umeclidin/Vilanter [Trelegy Ellipta 200-62.5-25] 1 dose IH DAILY 06/09/22 [History Confirmed 06/20/22] Pravastatin Sodium 40 mg PO HS 06/09/22 [History Confirmed 06/20/22] Diazepam 5 mg [Valium 5 MG] 5 mg PO TID PRN 14 Days #42 tablet 06/14/22 [Rx Confirmed 06/20/22] Diclofenac Sodium 2 gm TP QID PRN PRN 06/14/22 [Rx Confirmed 06/20/22] Furosemide 20 mg [Lasix 20 mg] 20 mg PO DAILY #30 tablet 06/14/22 [Rx Confirmed 06/20/22] Potassium Chloride 20 meq PO BID #60 tablet 06/14/22 [Rx Confirmed 06/20/22] Spironolactone 25 mg [Aldactone 25 MG] 50 mg PO DAILY #30 tablet 06/14/22 [Rx Confirmed 06/20/22] Albuterol/Ipratropium 3ml Neb* [DUONEB 0.5-3 MG/3 ml Neb] 1 neb IH Q4HPRN PRN 10 Days 06/15/22 [Rx Confirmed 06/20/22] Lactobacillus Acidophilus [Acidophilus TABLET] 1 tab PO BID 5 Days #10 tablet 06/15/22 [Rx Confirmed 06/20/22] Magnesium Oxide 400 mg [Mag-Ox 400] 400 mg PO DAILY #30 tablet 06/15/22 [Rx Confirmed 06/20/22] Allergies/Adverse Reactions: Allergies Allergy/AdvReac Type Severity Reaction Status Date / Time codeine AdvReac Mild Nausea Verified 06/20/22 21:33 - Past Medical History Past Medical History: Yes Neurological History: Migraines ENT History: Cataracts Cardiac History: Angina, High Cholesterol, Hypertension Respiratory History: COPD Endocrine Medical History: No Pertinent History Musculoskelatal History: Arthritis GI Medical History: Cirrhosis History: No Pertinent History Pyscho-Social History: No Pertinent History Male Reproductive Disorders: No Pertinent History Comment: states bharat. cataract surgery,"feel like something is sutck in my upper chest all the time" " sometimes i just get out of breath" - Past Surgical History Past Surgical History: Yes Neuro Surgical History: No Pertinent History Cardiac History: Cardiac Catheterization Respiratory Surgery: No Pertinent History GI Surgical History: Appendectomy Genitourinary Surgical Hx: No Pertinent History Musculskeletal Surgical Hx: No Pertinent History Male Surgical History: No Pertinent History Other Surgical History: bilateral cataract with IOL implant , heart cath " less than a yr ago" " no stent because it was about 60% open for now" - Social History Smoking Status: Former smoker How long have you smoked: 50 yrs Exposure to second hand smoke: Yes Alcohol: Daily Drug Use: none - Physical Exam Vital Signs: Vital Signs - 24 hr Temp Pulse Resp BP Pulse Ox 06/21/22 04:00 97.0 F 87 18 146/76 98 06/20/22 21:47 97.0 F 111 H 20 125/86 98 06/20/22 20:26 107 H 14 155/87 100 06/20/22 20:17 99 06/20/22 19:41 86 14 139/98 99 06/20/22 16:06 94 H 20 153/83 98 06/20/22 15:07 99 H 20 140/78 99 06/20/22 14:01 94 H 20 129/72 99 06/20/22 12:49 96.8 F 102 H 20 114/80 98 General Appearance: no apparent distress, thin Neurologic Exam: alert, cooperative Respiratory Exam: normal breath sounds, lungs clear, No respiratory distress Cardiovascular Exam: regular rate/rhythm, normal heart sounds, normal peripheral pulses Gastrointestinal/Abdomen Exam: soft, distention, No tenderness Extremity Exam: normal inspection, normal range of motion, pelvis stable Skin Exam: normal color, warm, dry, No rash Results - Labs Lab/Micro Results: Lab Results-Last 24 Hours 06/20/22 06/20/22 06/20/22 Range/Units 13:30 17:30 17:30 WBC (4.0-10.5) x10^3/uL RBC (4.1-5.6) x10^6/uL Hgb (12.5-18.0) g/dL Hct (42-50) % MCV (78-100) fL MCH (26-32) pg MCHC (32-36) g/dL RDW (11.5-14.0) % Plt Count (150-450) x10^3/uL MPV (7.5-11.0) fL Gran % (36.0-66.0) % Immature Gran % (Auto) (0.00-0.4) % Nucleat RBC Rel Count (0.00-0.1) % Eos # (Auto) (0-0.5) x10^3/uL Immature Gran # (Auto) (0.00-0.03) x10^3u/L Absolute Lymphs (auto) (1.0-4.6) x10^3/uL Absolute Monos (auto) (0.0-1.3) x10^3/uL Absolute Nucleated RBC (0.00-0.01) x10^3u/L Lymphocytes % (24.0-44.0) % Monocytes % (0.0-12.0) % Eosinophils % (0.00-5.0) % Basophils % (0.0-0.4) % Absolute Granulocytes (1.4-6.9) x10^3/uL Basophils # (0-0.4) x10^3/uL PT 10.9 (9.4-12.5) SECONDS INR 1.00 (0.8-3.0) APTT 26.8 (25.1-36.5) SECONDS Sodium 137 (137-145) mmol/L Potassium 3.0 L* (3.5-5.1) mmol/L Chloride 108 H (98-107) mmol/L Carbon Dioxide 22 (22-30) mmol/L Anion Gap 10.6 (5-15) MEQ/L BUN 4 L (9-20) mg/dL Creatinine 0.67 (0.66-1.25) mg/dL Estimated GFR > 60.0 ML/MIN Glucose 87 (74-106) mg/dL Calcium 7.7 L (8.4-10.2) mg/dL Magnesium (1.6-2.3) mg/dL Total Bilirubin 0.40 (0.2-1.3) mg/dL AST 39 (17-59) U/L ALT 24 (0-50) U/L Alkaline Phosphatase 119 (38-126) U/L Troponin I < 0.012 (0.000-0.034) ng/mL Serum Total Protein 6.1 L (6.3-8.2) g/dL Albumin 2.5 L (3.5-5.0) g/dL Influenza Type A Ag (NEGATIVE) Influenza Type B Ag (NEGATIVE) RSV (PCR) (NEGATIVE) SARS-CoV-2 (PCR) (NEGATIVE) 06/20/22 06/20/22 06/20/22 Range/Units 17:40 18:45 22:31 WBC 13.6 H (4.0-10.5) x10^3/uL RBC 3.78 L (4.1-5.6) x10^6/uL Hgb 12.5 (12.5-18.0) g/dL Hct 39.4 L (42-50) % MCV 104.2 H (78-100) fL MCH 33.1 H (26-32) pg MCHC 31.7 L (32-36) g/dL RDW 14.6 H (11.5-14.0) % Plt Count 370 (150-450) x10^3/uL MPV 9.9 (7.5-11.0) fL Gran % 84.5 H (36.0-66.0) % Immature Gran % (Auto) 0.3 (0.00-0.4) % Nucleat RBC Rel Count 0.0 (0.00-0.1) % Eos # (Auto) 0.08 (0-0.5) x10^3/uL Immature Gran # (Auto) 0.04 H (0.00-0.03) x10^3u/L Absolute Lymphs (auto) 1.02 (1.0-4.6) x10^3/uL Absolute Monos (auto) 0.94 (0.0-1.3) x10^3/uL Absolute Nucleated RBC 0.00 (0.00-0.01) x10^3u/L Lymphocytes % 7.5 L (24.0-44.0) % Monocytes % 6.9 (0.0-12.0) % Eosinophils % 0.6 (0.00-5.0) % Basophils % 0.2 (0.0-0.4) % Absolute Granulocytes 11.45 H (1.4-6.9) x10^3/uL Basophils # 0.03 (0-0.4) x10^3/uL PT (9.4-12.5) SECONDS INR (0.8-3.0) APTT (25.1-36.5) SECONDS Sodium (137-145) mmol/L Potassium (3.5-5.1) mmol/L Chloride (98-107) mmol/L Carbon Dioxide (22-30) mmol/L Anion Gap (5-15) MEQ/L BUN (9-20) mg/dL Creatinine (0.66-1.25) mg/dL Estimated GFR ML/MIN Glucose (74-106) mg/dL Calcium (8.4-10.2) mg/dL Magnesium (1.6-2.3) mg/dL Total Bilirubin (0.2-1.3) mg/dL AST (17-59) U/L ALT (0-50) U/L Alkaline Phosphatase (38-126) U/L Troponin I < 0.012 (0.000-0.034) ng/mL Serum Total Protein (6.3-8.2) g/dL Albumin (3.5-5.0) g/dL Influenza Type A Ag NEGATIVE (NEGATIVE) Influenza Type B Ag NEGATIVE (NEGATIVE) RSV (PCR) NEGATIVE (NEGATIVE) SARS-CoV-2 (PCR) NEGATIVE (NEGATIVE) 06/21/22 06/21/22 06/21/22 Range/Units 05:02 05:02 05:02 WBC 14.8 H (4.0-10.5) x10^3/uL RBC 3.39 L (4.1-5.6) x10^6/uL Hgb 11.4 L (12.5-18.0) g/dL Hct 34.7 L (42-50) % MCV 102.4 H (78-100) fL MCH 33.6 H (26-32) pg MCHC 32.9 (32-36) g/dL RDW 14.7 H (11.5-14.0) % Plt Count 332 (150-450) x10^3/uL MPV 9.5 (7.5-11.0) fL Gran % 83.6 H (36.0-66.0) % Immature Gran % (Auto) 0.5 H (0.00-0.4) % Nucleat RBC Rel Count 0.0 (0.00-0.1) % Eos # (Auto) 0.12 (0-0.5) x10^3/uL Immature Gran # (Auto) 0.07 H (0.00-0.03) x10^3u/L Absolute Lymphs (auto) 1.26 (1.0-4.6) x10^3/uL Absolute Monos (auto) 0.94 (0.0-1.3) x10^3/uL Absolute Nucleated RBC 0.00 (0.00-0.01) x10^3u/L Lymphocytes % 8.5 L (24.0-44.0) % Monocytes % 6.4 (0.0-12.0) % Eosinophils % 0.8 (0.00-5.0) % Basophils % 0.2 (0.0-0.4) % Absolute Granulocytes 12.33 H (1.4-6.9) x10^3/uL Basophils # 0.03 (0-0.4) x10^3/uL PT (9.4-12.5) SECONDS INR (0.8-3.0) APTT (25.1-36.5) SECONDS Sodium 136 L (137-145) mmol/L Potassium 3.5 (3.5-5.1) mmol/L Chloride 109 H (98-107) mmol/L Carbon Dioxide 24 (22-30) mmol/L Anion Gap 5.8 (5-15) MEQ/L BUN 4 L (9-20) mg/dL Creatinine 0.64 L (0.66-1.25) mg/dL Estimated GFR > 60.0 ML/MIN Glucose 87 (74-106) mg/dL Calcium 7.6 L (8.4-10.2) mg/dL Magnesium 2.4 H (1.6-2.3) mg/dL Total Bilirubin 0.40 (0.2-1.3) mg/dL AST 27 (17-59) U/L ALT 21 (0-50) U/L Alkaline Phosphatase 111 (38-126) U/L Troponin I < 0.012 (0.000-0.034) ng/mL Serum Total Protein 5.5 L (6.3-8.2) g/dL Albumin 2.2 L (3.5-5.0) g/dL Influenza Type A Ag (NEGATIVE) Influenza Type B Ag (NEGATIVE) RSV (PCR) (NEGATIVE) SARS-CoV-2 (PCR) (NEGATIVE) 06/21/22 Range/Units 05:02 WBC (4.0-10.5) x10^3/uL RBC (4.1-5.6) x10^6/uL Hgb (12.5-18.0) g/dL Hct (42-50) % MCV (78-100) fL MCH (26-32) pg MCHC (32-36) g/dL RDW (11.5-14.0) % Plt Count (150-450) x10^3/uL MPV (7.5-11.0) fL Gran % (36.0-66.0) % Immature Gran % (Auto) (0.00-0.4) % Nucleat RBC Rel Count (0.00-0.1) % Eos # (Auto) (0-0.5) x10^3/uL Immature Gran # (Auto) (0.00-0.03) x10^3u/L Absolute Lymphs (auto) (1.0-4.6) x10^3/uL Absolute Monos (auto) (0.0-1.3) x10^3/uL Absolute Nucleated RBC (0.00-0.01) x10^3u/L Lymphocytes % (24.0-44.0) % Monocytes % (0.0-12.0) % Eosinophils % (0.00-5.0) % Basophils % (0.0-0.4) % Absolute Granulocytes (1.4-6.9) x10^3/uL Basophils # (0-0.4) x10^3/uL PT 10.9 (9.4-12.5) SECONDS INR 1.00 (0.8-3.0) APTT (25.1-36.5) SECONDS Sodium (137-145) mmol/L Potassium (3.5-5.1) mmol/L Chloride (98-107) mmol/L Carbon Dioxide (22-30) mmol/L Anion Gap (5-15) MEQ/L BUN (9-20) mg/dL Creatinine (0.66-1.25) mg/dL Estimated GFR ML/MIN Glucose (74-106) mg/dL Calcium (8.4-10.2) mg/dL Magnesium (1.6-2.3) mg/dL Total Bilirubin (0.2-1.3) mg/dL AST (17-59) U/L ALT (0-50) U/L Alkaline Phosphatase (38-126) U/L Troponin I (0.000-0.034) ng/mL Serum Total Protein (6.3-8.2) g/dL Albumin (3.5-5.0) g/dL Influenza Type A Ag (NEGATIVE) Influenza Type B Ag (NEGATIVE) RSV (PCR) (NEGATIVE) SARS-CoV-2 (PCR) (NEGATIVE) - Radiology Impressions Radiology Exams & Impressions: Radiology Procedures Category Date Time Status ABDOMINAL PARACENTESIS [US] Routine Exams 06/21/22 08:00 Ordered ABDOMINAL-LIMITED [US] Stat Exams 06/20/22 14:51 Completed Assessment/Plan (1) Abdominal distension Current Visit: No Status: Chronic Assessment & Plan: awaiting therapeutic paracentesis, poor functional status. recommend longterm/rehab stay, patient voices interest in therapy Code(s): R14.0 - ABDOMINAL DISTENSION (GASEOUS) (2) Cirrhosis Current Visit: No Status: Chronic Qualifiers: Assessment & Plan: coags normal (3) Alcohol use disorder Current Visit: No Status: Chronic Code(s): F10.90 - ALCOHOL USE, UNSPECIFIED, UNCOMPLICATED
[2022-06-21] MEDS ORDERED: Lasix 40 MG PO SCH (10:00)
[2022-06-21] MEDS ORDERED: Aldactone 25 MG PO SCH (10:00)
[2022-06-21] MEDS: Advair Hfa 115/21 Common canister IH SCH ×2 (10:25→18:03)
[2022-06-21] MEDS ORDERED: VENTOLIN COMMON CANISTER IH PRN (10:54)
[2022-06-21] MEDS: Aldactone 25 MG PO SCH (11:47)
[2022-06-21] MEDS: Coreg 3.125 MG PO SCH ×2 (11:47→21:18)
[2022-06-21] MEDS: Klor Con PO SCH ×2 (11:57→21:18)
[2022-06-21] MEDS: MAG-OX 400 PO SCH (11:57)
[2022-06-21] MEDS: Protonix 40MG Tablet PO SCH (11:57)
[2022-06-21] MEDS: LASIX 20 MG PO SCH (11:57)
[2022-06-21] MEDS: Acidophilus TABLET PO SCH ×2 (11:57→21:18)
[2022-06-21] MEDS: SYNTHROID 50 MCG PO SCH (11:57)
--- NOTE | 2022-06-21 11:57 | XRAY ---
Indication: Ascites. Procedure was performed bedside. Informed consent obtained. Patient placed supine. Initial abdominal ultrasound performed for localization. Right upper abdominal wall was prepped and draped in sterile fashion. 1% lidocaine plain was used for local anesthesia. Tiny skin incision made. 5 [place] Correlor paracentesis needle/catheter was then percutaneously inserted. Once fluid was aspirating, the outer catheter was then advanced with the inner needle removed. Catheter was then connected to a Vacutainer. Approximately 1.5 L of clear lemonade colored fluid aspirated and was disposed of properly. Repeat sonogram demonstrates marked improvement with small residual. Catheter removed. Hemostasis achieved using digital pressure over the puncture site. Band-Aid applied over the puncture site. Impression: Technically successful ultrasound guided abdominal paracentesis for both therapeutic purpose. No immediate complications or blood loss.
[2022-06-21] MEDS: NORVASC 5 MG PO SCH (11:58)
[2022-06-21 15:05] LABS: 027 TOX PROD PRESUMPTIVE NEGATIVE (NEGATIVE); TOXIGENIC C. DIFF ORG NEGATIVE (NEGATIVE)
[2022-06-21 18:04] LABS: Appearance Clear (Clear); Bacteria None Seen /HPF (None Seen); Bilirubin Small (Negative); Blood Negative (Negative); Epithelial Cells None Seen /HPF (None Seen); Glucose, Urine Negative (Negative); Ketones Trace (Negative); Leukocyte Esterase Negative (Negative); Nitrite Negative (Negative); Ph 5.5 (4.6-8.0); Protein,Urine Dip 30 (Negative); Urobilinogen 0.2 mg/dL (0.2); WBC 0-2 /HPF (0-5)
[2022-06-21 18:05] LABS: ADD URINE CULTURE? NO (NO)
[2022-06-21] MEDS ORDERED: NON-FORMULARY ITEM (Omeprazole Magnesium [Prilosec Otc] 20 MG Tablet.Dr) PO SCH (22:00)
[2022-06-21] MEDS ORDERED: ZOCOR 20MG PO SCH (22:00)
[2022-06-22 05:37] LABS: Absolute Neutrophil Ct (ANC) 9.11 x10^3/uL (1.4-6.9); BASOPHIL % 0.2 % (0.0-0.4); Basophil (Absolute #) 0.02 x10^3/uL (0-0.4); Eosinophil % 1.2 % (0.00-5.0); Eosinophil (Absolute #) 0.14 x10^3/uL (0-0.5); Hematocrit 31.4 % (42-50); Hemoglobin 10.1 g/dL (12.5-18.0); IMMATURE GRAN # 0.04 x10^3u/L (0.00-0.03); IMMATURE GRAN % 0.4 % (0.00-0.4); Lymphocyte (Absolute #) 1.35 x10^3/uL (1.0-4.6); Lymphocytes % 11.9 % (24.0-44.0); Mean Cell Volume 101.3 fL (78-100); Mean Corpuscular Hemoglobin 32.6 pg (26-32); Mean Corpuscular Hgb Concent. 32.2 g/dL (32-36); Mean Platelet Volume 9.5 fL (7.5-11.0); Monocyte (Absolute #) 0.66 x10^3/uL (0.0-1.3); Monocytes % 5.8 % (0.0-12.0); Neutrophil % 80.5 % (36.0-66.0); Platelet Count 288 x10^3/uL (150-450); Red Cell Distribution Width 14.5 % (11.5-14.0); White Blood Count 11.3 x10^3/uL (4.0-10.5)
[2022-06-22 05:58] LABS: ALBUMIN 1.9 g/dL (3.5-5.0); ALKALINE PHOSPHATASE 90 U/L (38-126); ANION GAP 10.6 MEQ/L (5-15); BLOOD UREA NITROGEN 5 mg/dL (9-20); CHLORIDE 108 mmol/L (98-107); Calcium 7.2 mg/dL (8.4-10.2); Carbon Dioxide 19 mmol/L (22-30); Creatinine 1 0.61 mg/dL (0.66-1.25); EST GLOMERULAR FILTRATION RATE > 60.0 ML/MIN; Glucose 66 mg/dL (74-106); Potassium 3.2 mmol/L (3.5-5.1); SGOT/AST 24 U/L (17-59); SGPT/ALT 17 U/L (0-50); SODIUM 134 mmol/L (137-145); Total Protein 4.8 g/dL (6.3-8.2)
[2022-06-22] MEDS: Advair Hfa 115/21 Common canister IH SCH (07:02)
--- NOTE | 2022-06-22 08:09 | PCM.NOTE ---
Date and Time: 06/22/22806 Subjective Assessment: patient had paracentesis yesterday 1.5L removed, he is feeling some better. c/o feeling hungry, weak Objective Exam General Appearance: no apparent distress Neurologic Exam: alert, oriented x 3 Respiratory Exam: normal breath sounds, lungs clear, No respiratory distress Cardiovascular Exam: regular rate/rhythm, normal heart sounds Gastrointestinal/Abdomen Exam: soft, distention Extremity Exam: normal inspection, normal range of motion OBJECTIVE DATA Vital Signs: Vital Signs - 24 hr Temp Pulse Resp BP Pulse Ox 06/22/22 07:39 97.6 F 109 H 15 118/68 97 06/22/22 07:15 90 18 90 L 06/22/22 04:00 98.4 F 89 16 110/59 91 L 06/22/22 00:00 96.8 F 83 18 115/63 98 06/21/22 20:00 97.7 F 84 20 131/66 98 06/21/22 18:05 65 18 94 L 06/21/22 16:00 97.8 F 84 15 128/68 95 06/21/22 12:00 97.8 F 93 H 18 162/82 99 06/21/22 10:53 115 H 20 98 Pain Assessment - Last Documented Pain Intensity 0 Intake and Output: Intake & Output 06/19/22 06/20/22 06/21/22 06/22/22 11:59 11:59 11:59 11:59 Intake Total 1280 50 Output Total 250 Balance 1280 -200 Weight 60.1 kg 59.9 kg Lab Results: Lab Results-Last 24 Hours 06/21/22 06/21/22 06/22/22 Range/Units 13:44 15:59 05:06 WBC 11.3 H (4.0-10.5) x10^3/uL RBC 3.10 L (4.1-5.6) x10^6/uL Hgb 10.1 L (12.5-18.0) g/dL Hct 31.4 L (42-50) % MCV 101.3 H (78-100) fL MCH 32.6 H (26-32) pg MCHC 32.2 (32-36) g/dL RDW 14.5 H (11.5-14.0) % Plt Count 288 (150-450) x10^3/uL MPV 9.5 (7.5-11.0) fL Gran % 80.5 H (36.0-66.0) % Immature Gran % (Auto) 0.4 (0.00-0.4) % Nucleat RBC Rel Count 0.0 (0.00-0.1) % Eos # (Auto) 0.14 (0-0.5) x10^3/uL Immature Gran # (Auto) 0.04 H (0.00-0.03) x10^3u/L Absolute Lymphs (auto) 1.35 (1.0-4.6) x10^3/uL Absolute Monos (auto) 0.66 (0.0-1.3) x10^3/uL Absolute Nucleated RBC 0.00 (0.00-0.01) x10^3u/L Lymphocytes % 11.9 L (24.0-44.0) % Monocytes % 5.8 (0.0-12.0) % Eosinophils % 1.2 (0.00-5.0) % Basophils % 0.2 (0.0-0.4) % Absolute Granulocytes 9.11 H (1.4-6.9) x10^3/uL Basophils # 0.02 (0-0.4) x10^3/uL Sodium (137-145) mmol/L Potassium (3.5-5.1) mmol/L Chloride (98-107) mmol/L Carbon Dioxide (22-30) mmol/L Anion Gap (5-15) MEQ/L BUN (9-20) mg/dL Creatinine (0.66-1.25) mg/dL Estimated GFR ML/MIN Glucose (74-106) mg/dL Calcium (8.4-10.2) mg/dL Magnesium (1.6-2.3) mg/dL Total Bilirubin (0.2-1.3) mg/dL AST (17-59) U/L ALT (0-50) U/L Alkaline Phosphatase (38-126) U/L Serum Total Protein (6.3-8.2) g/dL Albumin (3.5-5.0) g/dL Urine Color Dark Yellow (Yellow) Urine Appearance Clear (Clear) Urine pH 5.5 (4.6-8.0) Ur Specific [place] 1.020 (1.005-1.030) Urine Protein 30 (Negative) Urine Glucose (UA) Negative (Negative) mg/dL Urine Ketones Trace A (Negative) Urine Blood Negative (Negative) Urine Nitrite Negative (Negative) Urine Bilirubin Small A (Negative) Urine Urobilinogen 0.2 (0.2) mg/dL Ur Leukocyte Esterase Negative (Negative) U Hyaline Cast (Auto) 6-10 A (0-2) /LPF Urine Microscopic RBC 3-5 (0-5) /HPF Urine Microscopic WBC 0-2 (0-5) /HPF Ur Epithelial Cells None Seen (None Seen) /HPF Urine Bacteria None Seen (None Seen) /HPF Urine Culture Reflexed NO (NO) C. difficile Screen NEGATIVE (NEGATIVE) C.difficile 027-NAP1-B1 PRESUMPTIVE NEGATIVE (NEGATIVE) 06/22/22 Range/Units 05:06 WBC (4.0-10.5) x10^3/uL RBC (4.1-5.6) x10^6/uL Hgb (12.5-18.0) g/dL Hct (42-50) % MCV (78-100) fL MCH (26-32) pg MCHC (32-36) g/dL RDW (11.5-14.0) % Plt Count (150-450) x10^3/uL MPV (7.5-11.0) fL Gran % (36.0-66.0) % Immature Gran % (Auto) (0.00-0.4) % Nucleat RBC Rel Count (0.00-0.1) % Eos # (Auto) (0-0.5) x10^3/uL Immature Gran # (Auto) (0.00-0.03) x10^3u/L Absolute Lymphs (auto) (1.0-4.6) x10^3/uL Absolute Monos (auto) (0.0-1.3) x10^3/uL Absolute Nucleated RBC (0.00-0.01) x10^3u/L Lymphocytes % (24.0-44.0) % Monocytes % (0.0-12.0) % Eosinophils % (0.00-5.0) % Basophils % (0.0-0.4) % Absolute Granulocytes (1.4-6.9) x10^3/uL Basophils # (0-0.4) x10^3/uL Sodium 134 L (137-145) mmol/L Potassium 3.2 L (3.5-5.1) mmol/L Chloride 108 H (98-107) mmol/L Carbon Dioxide 19 L (22-30) mmol/L Anion Gap 10.6 (5-15) MEQ/L BUN 5 L (9-20) mg/dL Creatinine 0.61 L (0.66-1.25) mg/dL Estimated GFR > 60.0 ML/MIN Glucose 66 L (74-106) mg/dL Calcium 7.2 L (8.4-10.2) mg/dL Magnesium 2.0 (1.6-2.3) mg/dL Total Bilirubin 0.40 (0.2-1.3) mg/dL AST 24 (17-59) U/L ALT 17 (0-50) U/L Alkaline Phosphatase 90 (38-126) U/L Serum Total Protein 4.8 L (6.3-8.2) g/dL Albumin 1.9 L (3.5-5.0) g/dL Urine Color (Yellow) Urine Appearance (Clear) Urine pH (4.6-8.0) Ur Specific [place] (1.005-1.030) Urine Protein (Negative) Urine Glucose (UA) (Negative) mg/dL Urine Ketones (Negative) Urine Blood (Negative) Urine Nitrite (Negative) Urine Bilirubin (Negative) Urine Urobilinogen (0.2) mg/dL Ur Leukocyte Esterase (Negative) U Hyaline Cast (Auto) (0-2) /LPF Urine Microscopic RBC (0-5) /HPF Urine Microscopic WBC (0-5) /HPF Ur Epithelial Cells (None Seen) /HPF Urine Bacteria (None Seen) /HPF Urine Culture Reflexed (NO) C. difficile Screen (NEGATIVE) C.difficile 027-NAP1-B1 (NEGATIVE) Radiology Exams: Radiology Procedures Category Date Time Status ABDOMINAL PARACENTESIS [US] Routine Exams 06/21/22 08:00 Completed ABDOMINAL-LIMITED [US] Stat Exams 06/20/22 14:51 Completed Multi-Disciplinary Progress Notes: Multi-Disciplinary Progress Notes 06/21/22 13:15 (created 06/21/22 13:43) Case Management Note by Petty Lynn CALLED TO REPORT THAT THE AUTH HAS BEEN INITIATED FOR REHAB STAY AT THE [facility]. Initialized on 06/21/22 13:43 - END OF NOTE 06/21/22 11:39 Case Management Note by Petty Lynn PT EVAL SENT VIA FAX TO [facility] FOR AUTH PROCESS. Initialized on 06/21/22 11:39 - END OF NOTE 06/21/22 09:48 Case Management Note by Petty Lynn REFERRAL TO THE [facility] FAXED AT THIS TIME. SPOKE WITH [facility] TO NOTIFY OF FAX. AWAIT NOTIFICATION OF BED AVAILABILITY. [facility] REPORTS THAT THEY WILL GET BACK WITH US [facility]. Initialized on 06/21/22 09:48 - END OF NOTE 06/21/22 09:30 Case Management Note by Petty Lynn DISCUSSION WITH PT REGARDING NEEDS AT DISCHARGE. DISCUSSED THAT PT WAS JUST HERE LAST WEEK, DISCHARGED ON 06/15/22. PT REPORTS THAT HE IS NOW FEELING MORE WEAK, AND DOES NOT FEEL THAT HE CAN RETURN HOME. HE ACTUALLY REFUSED [facility] HIS LAST VISIT, BUT DID FINALLY AGREE TO OUTPATIENT P.T. HE REPORTS THAT HE HAS A WALKER AT HOME, BUT DOESN'T USE IT MUCH, THERE IS JUST NOT ENOUGH ROOM IN THE HOUSE. PT DENIES THE USE OF ANY OTHER EQUIPMENT. PT DID NOT F/U WITH OUTPATIENT P.T., NOR DID HE GET HIS LABS DRAWN ORDERED AFTER HIS LAST VISIT. DURING DISCUSSION, THE PATIENT REPORTS THAT HE JUST WASN'T FEELING UP TO IT. PT REPORTS THAT HE NORMALLY LIVES IN [place], BUT HAS BEEN LIVING WITH HIS DAD IN [place]. REPORTS THAT HE HAS FAMILY THAT HAS BEEN RUNNING ERRANDS, GETTING GROCERIES, AND TAKING HIM TO DR GELLER. REPORTS THAT WHEN HE WAS DISCHARGED FROM HERE LAST WEEK, HE THOUGHT THAT HE COULD MANAGE, WITH HELP OF FAMILY. PT REPORTS THAT HE REALIZES HE NEEDS MORE HELP/ASSISTANCE THAN THEY CAN PROVIDE. REQUESTING REHAB STAY @ [facility] ON DISCHARGE. REPORTS THAT HE WANTS TO STAY IN [place]. REQUESTS THAT THE [facility] BE HIS FIRST CHOICE, AND IF THEY CAN NOT ACCEPT HIM, THEN [facility] IS HIS 2ND CHOICE. DISCUSSED THAT HIS INSURANCE REQUIRES AUTH BEFORE HE CAN GO TO REHAB. WILL MAKE REFERRAL TODAY. Initialized on 06/21/22 09:30 - END OF NOTE Assessment/Plan (1) Cirrhosis Current Visit: No Status: Chronic Qualifiers: Assessment & Plan: patient is weak and deconditioned, he is willing to go to [facility] for rehab and awaiting insurance approval for the [facility] (2) Abdominal distension Current Visit: No Status: Chronic Code(s): R14.0 - ABDOMINAL DISTENSION (GASEOUS) (3) Alcohol use disorder Current Visit: No Status: Chronic Code(s): F10.90 - ALCOHOL USE, UNSPECIFIED, UNCOMPLICATED
[2022-06-22] MEDS ORDERED: IMODIUM 2 MG PO PRN (08:10)
[2022-06-22] MEDS ORDERED: Klor Con PO SCH (08:15)
[2022-06-22] MEDS: SYNTHROID 50 MCG PO SCH (08:48)
[2022-06-22] MEDS: K-LYTE PO SCH ×3 (09:02→13:19)
[2022-06-22] MEDS ORDERED: NON-FORMULARY ITEM (Fluticasone/Umeclidin/Vilanter [Trelegy Ellipta 200-62.5-25] 1 EACH Bl IH SCH (10:00)
[2022-06-22] MEDS: NORVASC 5 MG PO SCH (10:47)
[2022-06-22] MEDS: Protonix 40MG Tablet PO SCH (10:47)
[2022-06-22] MEDS: Aldactone 25 MG PO SCH (10:47)
[2022-06-22] MEDS: Coreg 3.125 MG PO SCH (10:47)
[2022-06-22] MEDS: Acidophilus TABLET PO SCH (10:47)
[2022-06-22] MEDS: MAG-OX 400 PO SCH (10:48)
[2022-06-22] MEDS: LASIX 20 MG PO SCH (10:48)
[2022-06-22] MEDS: Klor Con PO SCH (10:48)
--- NOTE | 2022-06-22 11:38 | PCM.DS ---
Discharge Summary Date of Admission: 06/20/22 20:42 Admitting Physician: WILTON SHAH MD Primary Care Provider: ADELIA STINSON Allergies Allergies codeine Adverse Reaction (Mild, Verified 06/20/22 21:33) Nausea states "i can take it , it just bothers my stomach" Hospital Summary - Hospital Course Hospital Course: patient with a history of cirrhosis secondary to alcoholism, admitted with recurrent ascites. had 1.5L ascites removed via paracentesis, he is weak and has difficulty caring for himself. was only out of the hospital less than a week when he returned to ER - Vitals & Intake/Output Vital Signs: Vital Signs Temperature 97.6 F 06/22/22 07:39 Pulse Rate 109 H 06/22/22 07:39 Respiratory Rate 15 06/22/22 07:39 Blood Pressure 118/68 06/22/22 07:39 O2 Sat by Pulse Oximetry 97 06/22/22 07:39 Intake & Output: Intake & Output 06/19/22 06/20/22 06/21/22 06/22/22 11:59 11:59 11:59 11:59 Intake Total 1280 50 Output Total 250 Balance 1280 -200 Weight 60.1 kg 59.9 kg - Lab Result Diagrams: 06/22/22 05:06 06/22/22 10:10 Lab Results-Last 24 Hrs: Lab Results-Last 24 Hours 06/21/22 06/21/22 06/22/22 Range/Units 13:44 15:59 05:06 WBC 11.3 H (4.0-10.5) x10^3/uL RBC 3.10 L (4.1-5.6) x10^6/uL Hgb 10.1 L (12.5-18.0) g/dL Hct 31.4 L (42-50) % MCV 101.3 H (78-100) fL MCH 32.6 H (26-32) pg MCHC 32.2 (32-36) g/dL RDW 14.5 H (11.5-14.0) % Plt Count 288 (150-450) x10^3/uL MPV 9.5 (7.5-11.0) fL Gran % 80.5 H (36.0-66.0) % Immature Gran % (Auto) 0.4 (0.00-0.4) % Nucleat RBC Rel Count 0.0 (0.00-0.1) % Eos # (Auto) 0.14 (0-0.5) x10^3/uL Immature Gran # (Auto) 0.04 H (0.00-0.03) x10^3u/L Absolute Lymphs (auto) 1.35 (1.0-4.6) x10^3/uL Absolute Monos (auto) 0.66 (0.0-1.3) x10^3/uL Absolute Nucleated RBC 0.00 (0.00-0.01) x10^3u/L Lymphocytes % 11.9 L (24.0-44.0) % Monocytes % 5.8 (0.0-12.0) % Eosinophils % 1.2 (0.00-5.0) % Basophils % 0.2 (0.0-0.4) % Absolute Granulocytes 9.11 H (1.4-6.9) x10^3/uL Basophils # 0.02 (0-0.4) x10^3/uL Sodium (137-145) mmol/L Potassium (3.5-5.1) mmol/L Chloride (98-107) mmol/L Carbon Dioxide (22-30) mmol/L Anion Gap (5-15) MEQ/L BUN (9-20) mg/dL Creatinine (0.66-1.25) mg/dL Estimated GFR ML/MIN Glucose (74-106) mg/dL Calcium (8.4-10.2) mg/dL Magnesium (1.6-2.3) mg/dL Total Bilirubin (0.2-1.3) mg/dL AST (17-59) U/L ALT (0-50) U/L Alkaline Phosphatase (38-126) U/L Serum Total Protein (6.3-8.2) g/dL Albumin (3.5-5.0) g/dL Urine Color Dark Yellow (Yellow) Urine Appearance Clear (Clear) Urine pH 5.5 (4.6-8.0) Ur Specific [place] 1.020 (1.005-1.030) Urine Protein 30 (Negative) Urine Glucose (UA) Negative (Negative) mg/dL Urine Ketones Trace A (Negative) Urine Blood Negative (Negative) Urine Nitrite Negative (Negative) Urine Bilirubin Small A (Negative) Urine Urobilinogen 0.2 (0.2) mg/dL Ur Leukocyte Esterase Negative (Negative) U Hyaline Cast (Auto) 6-10 A (0-2) /LPF Urine Microscopic RBC 3-5 (0-5) /HPF Urine Microscopic WBC 0-2 (0-5) /HPF Ur Epithelial Cells None Seen (None Seen) /HPF Urine Bacteria None Seen (None Seen) /HPF Urine Culture Reflexed NO (NO) C. difficile Screen NEGATIVE (NEGATIVE) C.difficile 027-NAP1-B1 PRESUMPTIVE NEGATIVE (NEGATIVE) 06/22/22 06/22/22 Range/Units 05:06 10:10 WBC (4.0-10.5) x10^3/uL RBC (4.1-5.6) x10^6/uL Hgb (12.5-18.0) g/dL Hct (42-50) % MCV (78-100) fL MCH (26-32) pg MCHC (32-36) g/dL RDW (11.5-14.0) % Plt Count (150-450) x10^3/uL MPV (7.5-11.0) fL Gran % (36.0-66.0) % Immature Gran % (Auto) (0.00-0.4) % Nucleat RBC Rel Count (0.00-0.1) % Eos # (Auto) (0-0.5) x10^3/uL Immature Gran # (Auto) (0.00-0.03) x10^3u/L Absolute Lymphs (auto) (1.0-4.6) x10^3/uL Absolute Monos (auto) (0.0-1.3) x10^3/uL Absolute Nucleated RBC (0.00-0.01) x10^3u/L Lymphocytes % (24.0-44.0) % Monocytes % (0.0-12.0) % Eosinophils % (0.00-5.0) % Basophils % (0.0-0.4) % Absolute Granulocytes (1.4-6.9) x10^3/uL Basophils # (0-0.4) x10^3/uL Sodium 134 L (137-145) mmol/L Potassium 3.2 L 3.8 (3.5-5.1) mmol/L Chloride 108 H (98-107) mmol/L Carbon Dioxide 19 L (22-30) mmol/L Anion Gap 10.6 (5-15) MEQ/L BUN 5 L (9-20) mg/dL Creatinine 0.61 L (0.66-1.25) mg/dL Estimated GFR > 60.0 ML/MIN Glucose 66 L (74-106) mg/dL Calcium 7.2 L (8.4-10.2) mg/dL Magnesium 2.0 (1.6-2.3) mg/dL Total Bilirubin 0.40 (0.2-1.3) mg/dL AST 24 (17-59) U/L ALT 17 (0-50) U/L Alkaline Phosphatase 90 (38-126) U/L Serum Total Protein 4.8 L (6.3-8.2) g/dL Albumin 1.9 L (3.5-5.0) g/dL Urine Color (Yellow) Urine Appearance (Clear) Urine pH (4.6-8.0) Ur Specific [place] (1.005-1.030) Urine Protein (Negative) Urine Glucose (UA) (Negative) mg/dL Urine Ketones (Negative) Urine Blood (Negative) Urine Nitrite (Negative) Urine Bilirubin (Negative) Urine Urobilinogen (0.2) mg/dL Ur Leukocyte Esterase (Negative) U Hyaline Cast (Auto) (0-2) /LPF Urine Microscopic RBC (0-5) /HPF Urine Microscopic WBC (0-5) /HPF Ur Epithelial Cells (None Seen) /HPF Urine Bacteria (None Seen) /HPF Urine Culture Reflexed (NO) C. difficile Screen (NEGATIVE) C.difficile 027-NAP1-B1 (NEGATIVE) - Radiology Exams Ordered Rad Exams-Entire Visit: Radiology Procedures Category Date Time Status ABDOMINAL PARACENTESIS [US] Routine Exams 06/21/22 08:00 Completed ABDOMINAL-LIMITED [US] Stat Exams 06/20/22 14:51 Completed - Procedures and Test Procedures and Tests throughout Hospitalization: Therapy Orders & Screens 06/21/22 10:53 Respiratory Therapy Assessment DAILY Comment: Diagnosis: Hypokalemia, generalized weakness, abdominal ascites Discharge Exam General Appearance: thin Neurologic Exam: alert, cooperative Respiratory Exam: normal breath sounds, lungs clear, No respiratory distress Cardiovascular Exam: regular rate/rhythm, normal heart sounds Gastrointestinal/Abdomen Exam: soft, No tenderness, No mass Skin Exam: normal color, warm, dry Final Diagnosis/Problem List - Final Discharge Diagnosis/Problem (1) Cirrhosis Current Visit: No Status: Chronic Assessment & Plan: might need recurrent paracentesis for symptom relief, can be arranged in radiology as outpatient when needed (2) Abdominal distension Current Visit: No Status: Chronic Code(s): R14.0 - ABDOMINAL DISTENSION (GASEOUS) (3) Alcohol use disorder Current Visit: No Status: Chronic Code(s): F10.90 - ALCOHOL USE, UNSPECIFIED, UNCOMPLICATED - Discharge Disposition: DC TO ANY "OTHER" LONG-TERM Condition: Stable Prescriptions: Continue Carvedilol 3.125 mg [Coreg 3.125 MG] 3.125 mg PO BID Omeprazole Magnesium [Prilosec Otc] 20 mg PO BID #60 tablet. Levothyroxine Sodium 25 Mcg [Synthroid 25 Mcg] 50 mcg PO DAILY Fluticasone/Umeclidin/Vilanter [Trelegy Ellipta 200-62.5-25] 1 dose IH DAILY Amlodipine Besylate 10 mg PO DAILY Pravastatin Sodium 40 mg PO HS Spironolactone 25 mg [Aldactone 25 MG] 50 mg PO DAILY #30 tablet Diclofenac Sodium 2 gm TP QID PRN PRN PRN Reason: Pain Furosemide 20 mg [Lasix 20 mg] 20 mg PO DAILY #30 tablet Potassium Chloride 20 meq PO BID #60 tablet Lactobacillus Acidophilus [Acidophilus TABLET] 1 tab PO BID 5 Days #10 tablet Magnesium Oxide 400 mg [Mag-Ox 400] 400 mg PO DAILY #30 tablet Albuterol/Ipratropium 3ml Neb* [DUONEB 0.5-3 MG/3 ml Neb] 1 neb IH Q4HPRN PRN 10 Days PRN Reason: Shortness Of Breath/Wheezing Discontinued Diazepam 5 mg [Valium 5 MG] 5 mg PO TID PRN 14 Days #42 tablet PRN Reason: Anxiety Follow up with: ADELIA STINSON [Primary Care Provider] -
[2022-06-22 11:57] VITALS: BP 104/59; PULSE 97; O2SAT 98
== END 2022-06-22 15:05 ==
LOC: ED 12:48 → MED SURG 20:42
PROVIDERS: ADMIT Internal Medicine; ATTEND Family Medicine
DX: K74.60 Unspecified cirrhosis of liver (principal); R14.0 Abdominal distension (gaseous); F10.90 Alcohol use, unspecified, uncomplicated; E87.6 Hypokalemia; R15.9 Full incontinence of feces; I10 Essential (primary) hypertension; E78.5 Hyperlipidemia, unspecified; Z79.899 Other long term (current) drug therapy; Z20.828 Contact with and (suspected) exposure to other viral communicable diseases
CPT/HCPCS: 0241U; 36000; 36415; 49083; 76705; 80053; 81001; 83735; 84132; 84484; 85025; 85610; 85730; 87045; 87046; 87493; 94640; 94760; 96365; 97161; 99284; G0378; J3475; J3480; A9270-GY

== ENCOUNTER 2022-07-17 15:49 | Emergency (ER) | payer MEDICARE ==
--- NOTE | 2022-07-17 16:00 | ERPHSYRPT ---
- History of Present Illness Time Seen by Provider: 07/17/22 16:00 Source: patient Exam Limitations: no limitations Physician History: This is a 67-year-old white male patient of Dr. Chris Posadas who has known cirrhosis as well as ascites and was complaining of weakness and more confusion. Patient was discharged approximately 2 weeks ago from the hospital. At that time he also underwent his most recent paracentesis. In the subsequent 2 weeks, he has noticed more confusion and increased weakness. He lives at the [facility]. Patient went to see nurse practitioner Vik in Dr. Chris Posadas's office. He was evaluated there and was sent to the hospital to get labs drawn. He was walking down the wheelchair ramp when he fell primarily onto his right knee but he also has an abrasion on his left knee. He also complains of right hip pain. Patient has a history of hypertension, hypothyroidism, COPD and hyperlipidemia. He denies chest pain. He denies shortness of breath. Severity: moderate Associated Symptoms: abdominal pain, weakness, No nausea, No vomiting, No shortness of breath, No chest pain Allergies/Adverse Reactions: codeine Adverse Reaction (Mild, Verified 07/17/22 15:53) Nausea states "i can take it , it just bothers my stomach" Home Medications: Carvedilol 3.125 mg [Coreg 3.125 MG] 3.125 mg PO BID 10/03/18 [History] Levothyroxine Sodium 25 Mcg [Synthroid 25 Mcg] 50 mcg PO DAILY 05/03/22 [ History] Amlodipine Besylate 10 mg PO DAILY 06/09/22 [History] Fluticasone/Umeclidin/Vilanter [Trelegy Ellipta 200-62.5-25] 1 dose IH DAILY 06/09/22 [History] Pravastatin Sodium 40 mg PO HS 06/09/22 [History] Hx Tetanus, Diphtheria Vaccination/Date Given: No Hx Influenza Vaccination/Date Given: No Hx Pneumococcal Vaccination/Date Given: No Travel Risk - International Travel Have you traveled outside of the country in past 3 weeks: No - Coronavirus Screening Are you exhibiting any of the following symptoms?: No Close contact with a COVID-19 positive Pt in past 14-21 Days: No - Vaccine Status Have you recieved a Covid-19 vaccination: No - Review of Systems Constitutional: Weakness Eyes: No Symptoms Ears, Nose, & Throat: No Symptoms Respiratory: No Symptoms Cardiac: No Symptoms Abdominal/Gastrointestinal: Abdominal Pain, No Nausea, No Vomiting, No Diarrhea, No Constipation Genitourinary Symptoms: No Symptoms Musculoskeletal: No Symptoms Skin: No Symptoms Neurological: No Symptoms Psychological: No Symptoms Endocrine: No Symptoms Hematologic/Lymphatic: No Symptoms Immunological/Allergic: No Symptoms All Other Systems: Reviewed and Negative - Past Medical History Pertinent Past Medical History: Yes Neurological History: Migraines ENT History: Cataracts Cardiac History: Angina, High Cholesterol, Hypertension Respiratory History: COPD Endocrine Medical History: No Pertinent History Musculoskeletal History: Arthritis GI Medical History: Cirrhosis History: No Pertinent History Psycho-Social History: No Pertinent History Male Reproductive Disorders: No Pertinent History Other Medical History: states bharat. cataract surgery,"feel like something is sutck in my upper chest all the time" " sometimes i just get out of breath" - Past Surgical History Past Surgical History: Yes Neuro Surgical History: No Pertinent History Cardiac: Cardiac Catheterization Respiratory: No Pertinent History Gastrointestinal: Appendectomy Genitourinary: No Pertinent History Musculoskeletal: No Pertinent History Male Surgical History: No Pertinent History Other Surgical History: bilateral cataract with IOL implant , heart cath " less than a yr ago" " no stent because it was about 60% open for now" - Social History Smoking Status: Former smoker How long have you smoked: 50 yrs Exposure to second hand smoke: Yes Drug Use: none Patient Lives Alone: No - Nursing Vital Signs Nursing Vital Signs: Initial Vital Signs Temperature 96.9 F 07/17/22 15:56 Pulse Rate 89 07/17/22 15:56 Respiratory Rate 18 07/17/22 15:56 Blood Pressure 89/69 07/17/22 15:56 O2 Sat by Pulse Oximetry 99 07/17/22 15:56 Pain Scale Pain Intensity 0 - Physical Exam General Appearance: no apparent distress, alert, cachetic Eye Exam: scleral icterus Ears, Nose, Throat Exam: normal ENT inspection, moist mucous membranes Neck Exam: normal inspection, non-tender, supple, full range of motion Respiratory Exam: normal breath sounds, lungs clear, airway intact, No chest tenderness, No respiratory distress Cardiovascular Exam: regular rate/rhythm, normal heart sounds, normal peripheral pulses Gastrointestinal/Abdomen Exam: soft, normal bowel sounds, tenderness (Mild diffuse to palpation), No rebound Rectal Exam: not done Back Exam: normal inspection, normal range of motion, No CVA tenderness, No vertebral tenderness Extremity Exam: normal range of motion, pelvis stable, tenderness (Anterior knee s bilaterally with abrasions present.) Neurologic Exam: alert, oriented x 3, cooperative, help aid II-XII nml as tested, normal mood/affect Skin Exam: jaundice, abrasion (Abrasions bilateral knees) Lymphatic Exam: No adenopathy SpO2 Interpretation: normal O2 Delivery: Room Air - Course Nursing assessment & vital signs reviewed: Yes Ordered Tests: Active Orders 24 hr Category Date Time Status IV Insertion STAT Care 07/17/22 16:13 Active ABDOMEN AND PELVIS W/0 CONTRAS [CT] Stat Exams 07/17/22 16:13 Completed HIP UNI (2V) INCL PEL IF DONE Stat Exams 07/17/22 17:07 Taken KNEE (1 OR 2 VIEW) Stat Exams 07/17/22 17:07 Taken KNEE (1 OR 2 VIEW) Stat Exams 07/17/22 17:08 Taken BLOOD CULTURE Stat Lab 07/17/22 16:20 Received CBC W DIFF Stat Lab 07/17/22 16:10 Completed CMP Stat Lab 07/17/22 16:10 Completed Lactic Acid Stat Lab 07/17/22 16:20 Completed Lactic Acid Stat Lab 07/17/22 18:24 Received TROPONIN Q4H Lab 07/17/22 16:10 Completed TROPONIN Q4H Lab 07/17/22 20:15 Ordered TROPONIN Q4H Lab 07/18/22 00:15 Ordered UA W/RFX UR CULTURE Stat Lab 07/17/22 17:51 Completed Lab/Rad Data: Laboratory Result Diagrams 07/17/22 16:10 07/17/22 16:10 Laboratory Results 07/17/22 07/17/22 07/17/22 Range/Units 17:51 16:20 16:10 WBC (4.0-10.5) x10^3/uL RBC (4.1-5.6) x10^6/uL Hgb (12.5-18.0) g/dL Hct (42-50) % MCV (78-100) fL MCH (26-32) pg MCHC (32-36) g/dL RDW (11.5-14.0) % Plt Count (150-450) x10^3/uL MPV (7.5-11.0) fL Gran % (36.0-66.0) % Immature Gran % (Auto) (0.00-0.4) % Nucleat RBC Rel Count (0.00-0.1) % Eos # (Auto) (0-0.5) x10^3/uL Immature Gran # (Auto) (0.00-0.03) x10^3u/L Absolute Lymphs (auto) (1.0-4.6) x10^3/uL Absolute Monos (auto) (0.0-1.3) x10^3/uL Absolute Nucleated RBC (0.00-0.01) x10^3u/L Lymphocytes % (24.0-44.0) % Monocytes % (0.0-12.0) % Eosinophils % (0.00-5.0) % Basophils % (0.0-0.4) % Absolute Granulocytes (1.4-6.9) x10^3/uL Basophils # (0-0.4) x10^3/uL Sodium (137-145) mmol/L Potassium (3.5-5.1) mmol/L Chloride (98-107) mmol/L Carbon Dioxide (22-30) mmol/L Anion Gap (5-15) MEQ/L BUN (9-20) mg/dL Creatinine (0.66-1.25) mg/dL Estimated GFR ML/MIN Glucose (74-106) mg/dL Lactic Acid 2.2 H (0.4-2.0) Calcium (8.4-10.2) mg/dL Total Bilirubin (0.2-1.3) mg/dL AST (17-59) U/L ALT (0-50) U/L Alkaline Phosphatase (38-126) U/L Ammonia 15 (9-30) umol/L Troponin I (0.000-0.034) ng/mL Serum Total Protein (6.3-8.2) g/dL Albumin (3.5-5.0) g/dL Urine Color Yellow (Yellow) Urine Appearance Clear (Clear) Urine pH 6.5 (4.6-8.0) Ur Specific Terral 1.010 (1.005-1.030) Urine Protein Negative (Negative) Urine Glucose (UA) Negative (Negative) mg/dL Urine Ketones Negative (Negative) Urine Blood Negative (Negative) Urine Nitrite Negative (Negative) Urine Bilirubin Negative (Negative) Urine Urobilinogen 0.2 (0.2) mg/dL Ur Leukocyte Esterase Negative (Negative) U Hyaline Cast (Auto) 11-20 (0-2) /LPF Urine Microscopic RBC 0-2 (0-5) /HPF Urine Microscopic WBC 0-2 (0-5) /HPF Ur Epithelial Cells None Seen (None Seen) /HPF Urine Bacteria None Seen (None Seen) /HPF Urine Culture Reflexed NO (NO) 07/17/22 07/17/22 07/17/22 Range/Units 16:10 16:10 16:10 WBC 12.0 H (4.0-10.5) x10^3/uL RBC 3.99 L (4.1-5.6) x10^6/uL Hgb 12.6 (12.5-18.0) g/dL Hct 39.2 L (42-50) % MCV 98.2 (78-100) fL MCH 31.6 (26-32) pg MCHC 32.1 (32-36) g/dL RDW 13.1 (11.5-14.0) % Plt Count 552 H (150-450) x10^3/uL MPV 8.6 (7.5-11.0) fL Gran % 76.1 H (36.0-66.0) % Immature Gran % (Auto) 0.7 H (0.00-0.4) % Nucleat RBC Rel Count 0.0 (0.00-0.1) % Eos # (Auto) 0.07 (0-0.5) x10^3/uL Immature Gran # (Auto) 0.08 H (0.00-0.03) x10^3u/L Absolute Lymphs (auto) 1.50 (1.0-4.6) x10^3/uL Absolute Monos (auto) 1.16 (0.0-1.3) x10^3/uL Absolute Nucleated RBC 0.00 (0.00-0.01) x10^3u/L Lymphocytes % 12.5 L (24.0-44.0) % Monocytes % 9.7 (0.0-12.0) % Eosinophils % 0.6 (0.00-5.0) % Basophils % 0.4 (0.0-0.4) % Absolute Granulocytes 9.10 H (1.4-6.9) x10^3/uL Basophils # 0.05 (0-0.4) x10^3/uL Sodium 135 L (137-145) mmol/L Potassium 4.2 (3.5-5.1) mmol/L Chloride 101 (98-107) mmol/L Carbon Dioxide 25 (22-30) mmol/L Anion Gap 12.6 (5-15) MEQ/L BUN 8 L (9-20) mg/dL Creatinine 0.60 L (0.66-1.25) mg/dL Estimated GFR > 60.0 ML/MIN Glucose 103 (74-106) mg/dL Lactic Acid (0.4-2.0) Calcium 8.2 L (8.4-10.2) mg/dL Total Bilirubin 0.40 (0.2-1.3) mg/dL AST 44 (17-59) U/L ALT 24 (0-50) U/L Alkaline Phosphatase 186 H (38-126) U/L Ammonia (9-30) umol/L Troponin I < 0.012 (0.000-0.034) ng/mL Serum Total Protein 6.8 (6.3-8.2) g/dL Albumin 2.8 L (3.5-5.0) g/dL Urine Color (Yellow) Urine Appearance (Clear) Urine pH (4.6-8.0) Ur Specific Terral (1.005-1.030) Urine Protein (Negative) Urine Glucose (UA) (Negative) mg/dL Urine Ketones (Negative) Urine Blood (Negative) Urine Nitrite (Negative) Urine Bilirubin (Negative) Urine Urobilinogen (0.2) mg/dL Ur Leukocyte Esterase (Negative) U Hyaline Cast (Auto) (0-2) /LPF Urine Microscopic RBC (0-5) /HPF Urine Microscopic WBC (0-5) /HPF Ur Epithelial Cells (None Seen) /HPF Urine Bacteria (None Seen) /HPF Urine Culture Reflexed (NO) - Progress Progress: improved, pain not gone completely, re-examined Progress Note: 07/17/22 18:[address] scan of the abdomen pelvis shows decrease in the intra-abdominal and pelvic ascites. Small pleural effusions are present which have decreased from the last comparison CAT scan of the abdomen pelvis. He has cholelithiasis present. There are no acute, emergent findings intra-abdominaly. X-ray of right knee shows no acute fracture or dislocation. This x-ray was interpreted by me. X-ray of left knee shows no acute fracture or dislocation. This x-ray was interpreted by me. X-ray of right hip shows no acute fracture or dislocation. This x-ray was i nterpreted by me. This patient's medical issue is 1 of moderate complexity. The level of complexity and the work-up performed is based on the review of the patient's past medical history, review the patient's medication list, review the patient's drug allergy list, history present illness and physical findings on examination. The work-up includes ammonia level, CBC, CMP, urinalysis, CAT scan of the abdomen pelvis, ammonia level, twelve-lead EKG, troponin level, lactic acid level. 07/17/22 19:03 I reviewed the work-up results. Patient does have a mild leukocytosis and had a lactic acid level that was mildly elevated. I will place him on Levaquin 500 mg orally once a day for 7 days. Patient ordinarily has hypertension but he has been hypotensive he needs to stop his blood pressure medication and minimize his narcotic pain medicine. I encouraged oral intake including increase in your liquid intake. Counseled pt/family regarding: lab results, diagnosis, need for follow-up, rad results Medical Desision Making - Independent Historian Additional History obtained from: Family - Social Determinants of Health Pt's dx & treatment plan are significantly limited by SDOH: Unemployed Limited access to: transportation - Diagnostic Testing Diagnostic test were ordered, analyzed, and reviewed by me: Yes Radiological Interpretation: Interpreted by me, Reviewed by me, Teleradiologist Report - Risk of complications Low Risk: Low risk of morbidity from additional dx testing or treatment - Departure Departure Disposition: Home Clinical Impression: Leukocytosis, unspecified, Weakness Condition: Stable Critical Care Time: No Referrals: [facility] [LOCATION] - Follow up/PCP as directed Additional Instructions: Plenty of fluids. Stop your blood pressure medication. Decrease your narcotic pain medicine to twice a day instead of 3 times a day. Follow-up with your prescribing provider tomorrow morning, 07/18/2022 for further evaluation and management Prescriptions: Levofloxacin [Levaquin 500 MG Tablet] 500 mg PO DAILY #7 tablet
[2022-07-17 16:19] LABS: BASOPHIL % 0.4 % (0.0-0.4); Basophil (Absolute #) 0.05 x10^3/uL (0-0.4); Eosinophil % 0.6 % (0.00-5.0); Eosinophil (Absolute #) 0.07 x10^3/uL (0-0.5); Hematocrit 39.2 % (42-50); Hemoglobin 12.6 g/dL (12.5-18.0); IMMATURE GRAN # 0.08 x10^3u/L (0.00-0.03); IMMATURE GRAN % 0.7 % (0.00-0.4); Lymphocytes % 12.5 % (24.0-44.0); Mean Cell Volume 98.2 fL (78-100); Mean Corpuscular Hemoglobin 31.6 pg (26-32); Mean Corpuscular Hgb Concent. 32.1 g/dL (32-36); Mean Platelet Volume 8.6 fL (7.5-11.0); Monocyte (Absolute #) 1.16 x10^3/uL (0.0-1.3); Monocytes % 9.7 % (0.0-12.0); Neutrophil % 76.1 % (36.0-66.0); Platelet Count 552 x10^3/uL (150-450); Red Blood Count 3.99 x10^6/uL (4.1-5.6); Red Cell Distribution Width 13.1 % (11.5-14.0)
[2022-07-17 16:27] LABS: ALBUMIN 2.8 g/dL (3.5-5.0); ALKALINE PHOSPHATASE 186 U/L (38-126); ANION GAP 12.6 MEQ/L (5-15); BLOOD UREA NITROGEN 8 mg/dL (9-20); CHLORIDE 101 mmol/L (98-107); Calcium 8.2 mg/dL (8.4-10.2); Carbon Dioxide 25 mmol/L (22-30); EST GLOMERULAR FILTRATION RATE > 60.0 ML/MIN; Glucose 103 mg/dL (74-106); Potassium 4.2 mmol/L (3.5-5.1); SGOT/AST 44 U/L (17-59); SGPT/ALT 24 U/L (0-50); SODIUM 135 mmol/L (137-145); Total Protein 6.8 g/dL (6.3-8.2)
--- NOTE | 2022-07-17 16:53 | XRAY ---
Indication: Abdomen distention. Multiple contiguous axial images obtained through the abdomen and pelvis without contrast. Comparison: June 11, 2022 Lung bases again demonstrates small left base effusion with compressive atelectasis, less than before. Heart not enlarged. Noncontrasted stomach and bowel loops nonobstructed again with appendectomy. Stable cirrhotic liver again with mild abdominal/pelvic ascites less than before. No free air. The remains incidental tiny gallstones and tiny calcified splenic granulomas. Remaining pancreas, adrenal glands, kidneys, ureters, and bladder are unremarkable for noncontrast exam. Stable moderate scattered aortoiliac calcifications without AAA. Osseous structures intact again with osteopenia and old L2 superior endplate fracture. Impression: 1. Again cirrhotic liver. Mild abdominal/pelvic ascites less than before. 2. Small left pleural effusion/atelectasis also less than before. 3. Again cholelithiasis, arteriosclerotic disease, chronic bony findings, and old granulomatous disease.
[2022-07-17 18:22] LABS: Appearance Clear (Clear); Bacteria None Seen /HPF (None Seen); Bilirubin Negative (Negative); Blood Negative (Negative); Epithelial Cells None Seen /HPF (None Seen); Glucose, Urine Negative (Negative); Ketones Negative (Negative); Leukocyte Esterase Negative (Negative); Nitrite Negative (Negative); Ph 6.5 (4.6-8.0); Protein,Urine Dip Negative (Negative); RBC 0-2 /HPF (0-5); Urobilinogen 0.2 mg/dL (0.2); WBC 0-2 /HPF (0-5)
[2022-07-17 18:23] LABS: ADD URINE CULTURE? NO (NO)
[2022-07-17] MEDS ORDERED: NORCO 5/325 MG PO ONE (18:59)
[2022-07-17] MEDS ORDERED: NORCO 5/325 MG ONE (19:04)
[2022-07-17 19:08] VITALS: BP 103/69; PULSE 78; O2SAT 98
[2022-07-17] MEDS ORDERED: Levofloxacin 500 MG Tablet PO ONE (19:08)
[2022-07-17] MEDS ORDERED: Levofloxacin 500 MG Tablet ONE (19:10)
--- NOTE | 2022-07-18 08:45 | XRAY ---
Indication: Pain following fall. Comparison: None 2 view left knee demonstrates osteopenia and extensive scattered vascular calcifications. No other bony, articular, or soft tissue abnormalities.
--- NOTE | 2022-07-18 08:45 | XRAY ---
Indication: Pain following fall. Comparison: None 2 view right hip demonstrates osteopenia and extensive scattered vascular calcifications. No other bony, articular, or soft tissue abnormalities.
--- NOTE | 2022-07-18 08:45 | XRAY ---
Indication: Pain following fall. Comparison: None 2 view right knee demonstrates osteopenia and extensive scattered vascular calcifications. No other bony, articular, or soft tissue abnormalities.
== END 2022-07-17 19:17 | disposition home or self-care (01) ==
LOC: ED 15:49
DX: D72.829 Elevated white blood cell count, unspecified (principal); R53.1 Weakness; S80.212A Abrasion, left knee, initial encounter; W19.XXXA Unspecified fall, initial encounter; Y93.01 Activity, walking, marching and hiking; Y92.238 Other place in hospital as the place of occurrence of the external cause; M25.551 Pain in right hip; E78.5 Hyperlipidemia, unspecified; I10 Essential (primary) hypertension; Z79.899 Other long term (current) drug therapy; Z28.310 Unvaccinated for COVID-19; Z56.0 Unemployment, unspecified; Z59.82 Transportation insecurity
CPT/HCPCS: 36000; 36415; 73502; 73560; 74176; 80053; 81001; 82140; 83605; 84484; 85025; 87040; 99284; A9270-GY